=== PATIENT | male | born 1965 | race Caucasian/White ===

== ENCOUNTER 2020-12-13 21:31 | Inpatient (IN) | payer MEDICAID, SELFPAY ==
--- NOTE | ~2020-12-13 | XR_ITS ---
EXAMINATION: XR CHEST CLINICAL INFORMATION: Dyspnea COMPARISON: None TECHNIQUE: Frontal view of the chest was obtained. FINDINGS: The heart and pulmonary vessels appear normal. Ill-defined scattered patchy densities are seen throughout both lungs. Findings are worrisome for viral pneumonia. A 1 cm nodular density present in the right inferior hilar region. No effusions are seen. XR/XR chest 1V IMPRESSION: Commonly reported imaging features of Covid 19 or viral pneumonia are present with multifocal ill-defined probable groundglass infiltrates. Other processes such as influenza pneumonia or organizing pneumonia, as can be seen with drug toxicity and connective tissue disease, can cause a similar imaging pattern. Also present is a possible 1 cm lung nodule on the right described above. Follow-up is recommended after treatment.
--- NOTE | ~2020-12-13 | XR_ITS ---
EXAMINATION: XR CHEST CLINICAL INFORMATION: Pneumonia with hypoxia COMPARISON: CT scan performed very early this morning at 12:37 AM chest radiograph 12/13/2020 TECHNIQUE: Frontal view of the chest was obtained. FINDINGS: Compared to the prior chest radiograph, there has been no significant interval change. Again noted are multifocal opacities seen in the lungs which were better characterized on the CT scan performed earlier today. Heart size is normal. No effusions are present. XR/XR chest 1V IMPRESSION: Unchanged chest radiograph. Findings were better characterized on the CT scan earlier today which demonstrated multifocal groundglass infiltrates multiple masslike areas. Recommendations remain the same with follow-up CT scan after treatment to sure that these rounded masses are inflammatory and not malignant.
--- NOTE | ~2020-12-13 | CT_ITS ---
EXAMINATION: CT ANGIOGRAM OF THE CHEST WITH AND WITHOUT CONTRAST (CT PULMONARY ANGIOGRAM FOR PE) CLINICAL INFORMATION: Reason for Exam Hypoxia COMPARISON: None TECHNIQUE: Prior to contrast administration, noncontrast localization images were obtained. Subsequently, multidetector volumetric imaging was performed from the thoracic inlet to below the diaphragms following the administration of 65 mL Omnipaque 350 intravenous contrast. No contrast reaction reported Sagittal, coronal, and MIP oblique sagittal reformatted images were obtained on the CT workstation, uploaded to PACS, and reviewed. This CT examination was performed using dose optimization techniques as appropriate, variously including the following: *Automated exposure control *Adjustment of mA and/or kV according to patient size (this includes techniques or standardized protocols for targeted exams where dose is matched to indication/reason for exam; i.e. extremities or head) *Use of iterative reconstruction technique Total exam dose-length product 245 mGy-cm FINDINGS: QUALITY OF STUDY/CONTRAST BOLUS: Satisfactory. PULMONARY ARTERIES: No central or segmental pulmonary emboli. THORACIC AORTA: No aneurysm or dissection. LUNG: There are scattered peripheral groundglass infiltrates present fairly characteristic of Covid 19. Multiple masslike areas are also seen in the lungs the largest of which is in the left lower lobe measuring 4.5 x 3.0 x 4.2 cm (8:469). Others include right upper lobe 0.9 cm (8:166) and right lower lobe measuring 1.6 x 1.0 x 1.6 cm (8:414). Other smaller areas are present as well. PLEURA: No pleural effusion or pneumothorax. MEDIASTINUM: The heart is normal size. There are enlarged mediastinal nodes present with one in the anterior mediastinum measuring 1.5 x 1.1 x 1.7 cm (8:155). Pretracheal AP window and precarinal and subcarinal lymph nodes are present as well with the largest being a subcarinal node measuring 2.1 x 1.7 x 2.8 cm (8:291). Bilateral hilar nodes are present with the largest on the left measuring 2.2 x 1.3 x 2.5 cm (8:318 and the largest on the right measuring 2.0 x 1.7 x 1.6 cm (8:294) No evidence of septal bowing or right heart strain. CHEST WALL/AXILLA: No axillary or internal mammary lymphadenopathy. OSSEOUS STRUCTURES: No acute or suspicious osseous abnormality. UPPER ABDOMEN: There is a mass in the left adrenal gland measuring 1.5 x 1.2 x 2.0 cm. This measures 48 Hounsfield units and is indeterminate. No liver metastases are seen. No reflux of contrast into the hepatic veins to suggest elevated right heart pressures. CT/CT angio chest PE protocol IMPRESSION: 1. Multifocal groundglass infiltrates are seen suggestive of Covid 19 2. Multiple lung masses/masslike infiltrates are present. Malignancy needs to be considered and a repeat exam performed after antibiotic treatment, if infection is suspected. 3. Mediastinal and hilar nodes as described above. 4. Indeterminate left adrenal mass. VTE: negative
[2020-12-13 21:38] VITALS: BP 138/76; BP 143/82; PULSE 120; RESP 26; TEMP 37.6; O2SAT 88; O2SAT 93; BMI 23.0
--- NOTE | 2020-12-13 21:54 | ECG_ITS ---
Test Reason : SOB Blood Pressure : / mmHG Vent. Rate : 117 BPM Atrial Rate : 117 BPM P-R Int : 126 ms QRS Dur : 094 ms QT Int : 316 ms P-R-T Axes : 078 106 056 degrees QTc Int : 440 ms Sinus tachycardia Biatrial enlargement Rightward axis Pulmonary disease pattern Abnormal ECG No previous ECGs available Referred By: Dahiana Bailey Electronically Signed By:BOB BRANNON MD
[2020-12-13 22:13] LABS: Imm Gran Abs Auto 0.11 X10*3/uL (0.00-0.03); Imm Gran Pct Auto 0.5 % (0.0-0.4); Mean Corpuscular Hemoglobin 28.1 pg (27.0-33.0); Mean Platelet Volume 9.1 fL (9.4-12.4); SCAN SMEAR FLAG 1; WBC ABN SCTR 1
--- NOTE | 2020-12-13 22:17 | ED.SOB ---
HPI - SOB/Dyspnea General Chief Complaint: Dyspnea Stated Complaint: sob Time Seen by Provider: 12/13/20 21:50 Source: patient Mode of arrival: EMS History of Present Illness HPI Narrative: 55-year-old male who arrives via EMS from home with complaints of difficulty breathing for 2-3 days. Patient states that he was evaluated at [facility] yesterday morning but left before the COVID results, but states he received prednisone while at the hospital. Patient then goes on to endorse that he missed his dose of methadone yesterday and took the dose today but then additionally did 2 bags of heroin prior to arrival. Otherwise, patient denies fevers but states he has had chills and has had a couple of episodes of vomiting without abdominal pain/diarrhea and denies any urinary symptoms. Related Data Home Medications Medication Instructions Recorded Confirmed albuterol sulfate 2 puff PO QID 12/14/20 albuterol sulfate [ProAir HFA] 2 puff PO QID 12/14/20 azithromycin 1 tab PO DAILY 12/14/20 clonidine HCl 1 tab PO TID PRN 12/14/20 fluticasone propion-salmeterol 1 puff INHALATION BID 12/14/20 [Wixela Inhub] fluticasone propionate 2 spray INTRANASAL DAILY 12/14/20 fluticasone propionate [Flovent 2 puff PO BID 12/14/20 HFA] ipratropium-albuterol [Combivent 1 puff INHALATION QID PRN 12/14/20 Respimat] prednisone 1 tab PO DAILY 12/14/20 prednisone 2 tab PO DAILY 12/14/20 umeclidinium [Incruse Ellipta] 1 puff INHALATION DAILY 12/14/20 Allergies Allergy/AdvReac Type Severity Reaction Status Date / Time No Known Allergies Allergy Verified 12/13/20 21:50 Review of Systems Review of Systems: Pertinent positives and negatives as stated in HPI 10 point review of systems is otherwise negative. [facility] Past Medical History Source: nursing notes reviewed Medical History COPD (chronic obstructive pulmonary disease) Social History Social History Alcohol intake: never Smoking Status: Light tobacco smoker Tobacco Type: Cigar Smoked in Last 30 Days: Yes Use of substances other than those prescribed or required for medical reasons: Yes Substance Use Type: Heroin Substance Use Frequency: Occasionally Last Used Substance: Hours (ago) Advance Directives: No Physical Exam Vital Signs: Vital Signs: Last Vital Signs Temp 99.7 F 12/13/20 21:38 Pulse 109 H 12/14/20 01:16 Resp 25 H 12/14/20 01:16 BP 130/70 12/14/20 01:16 Pulse Ox 91 L 12/14/20 01:16 Oxygen Flow Rate 4 12/13/20 21:38 Body Mass Index 23.0 VITAL SIGNS: Reviewed. GENERAL: Well developed, well nourished, in no acute distress. HEAD: Normocephalic/atraumatic EYES: PERRLA, EOMI OROPHARYNX: no oral lesions noted, posterior pharynx clear, dry mucosa NECK: Supple, no adenopathy LUNGS: Decreased breath sounds on left when compared to right, no wheezing, no accessory muscle use, tachypnea+. SpO2<94 on 2 L > CARDIOVASCULAR: Regular rate and rhythm without noted murmurs, no JVD or lower extremity edema. ABDOMEN: Soft, non-tender, non-distended with bowel sounds. MUSCULOSKELETAL: No tenderness, deformities, or effusions noted on gross inspection. EXTREMITIES: No cyanosis, clubbing or edema. SKIN: Inspection of the skin reveals no rashes, ulcerations, jaundice, pallor, or petechiae. NEUROLOGIC: Alert and oriented x 4. Strength and sensation to light touch were grossly intact x 4. Course Course Course Narrative: 55-year-old male with history and clinical presentation suggestive of COPD exacerbation, pneumonia, COVID-19 infection. On review of all investigations the leukocytosis is likely secondary to steroids patient received at [facility], however empiric antibiotics will be provided. Otherwise, BNP is within normal limits and patient continues to require oxygen supplementation. I discussed this case with the inpatient hospitalist team because the presentation as well as chest x-ray findings are highly suspicious for COVID-19 infection despite the fact that the swabs are coming back negative. VBG is inconsistent with COPD exacerbation. Inpatient hospital team agreeable for admission but ordered CTA of the chest for PE which was negative but again demonstrates radiologic findings consistent with COVID-19 infection. Patient will be admitted to isolation for this diagnosis. MDM - SOB/Dyspnea Lab Data Result diagrams: 12/13/20 22:01 12/13/20 22:02 Labs: Lab Results 12/13/20 12/13/20 12/13/20 Range/Units 22:01 22:01 22:01 WBC 22.8 H (4.8-10.8) X10*3/uL RBC 5.48 (4.60-5.80) X10*6/uL Hgb 15.4 (14.0-18.0) g/dl Hct 46.6 (42-52) % MCV 85.0 (80-98) fL MCH 28.1 (27.0-33.0) pg MCHC 33.0 (31.0-36.0) g/dl RDW 13.8 (11.0-16.0) % Plt Count 313 (160-400) X10*3/uL MPV 9.1 L (9.4-12.4) fL Immature Gran % (Auto) 0.5 H (0.0-0.4) % Neut % (Auto) 83.1 H (45-73) % Lymph % (Auto) 7.2 L (20-40) % [place] % (Auto) 8.8 (2-11) % Eos % (Auto) 0.1 (0-4) % Baso % (Auto) 0.3 (0-2) % Lymph # (Auto) 1.6 (1.2-4.9) X10*3/uL [place] # (Auto) 2.0 H (0.1-1.2) X10*3/uL Eos # (Auto) 0.0 (0.0-0.4) X10*3/uL Baso # (Auto) 0.1 (0.0-0.2) X10*3/uL Abs Immat Gran (auto) 0.11 H (0.00-0.03) X10*3/uL Absolute Neuts (auto) 19.0 H (2.0-8.3) X10*3/uL Absolute Nucleated RBC 0.000 (0.0-0.012) X10*3/uL Nucleated RBC % (auto) 0.0 (0.0-0.2) /100WBC Smear Tech's Comments VERIFIED PT 15.2 H (10.8-13.0) SEC INR 1.3 H (0.9-1.1) VBG pH (7.32-7.43) VBG pCO2 mmHg VBG pO2 mmHg VBG HCO3 (22-26) mmol/L VBG O2 Saturation % VBG Base Excess mmol/L Sodium (135-145) mmol/L Potassium (3.3-5.1) mmol/L Chloride (96-108) mmol/L Carbon Dioxide (22-29) mmol/L Anion Gap (12-20) BUN (9-16) mg/dL Creatinine (0.5-1.4) mg/dL Estim Creat Clear Calc Estimated GFR Random Glucose (60-115) mg/dL Lactic Acid 1.0 (0.5-2.0) mmol/L Calcium (8.4-10.2) mg/dL Total Bilirubin (0.0-1.0) mg/dL AST (5-37) U/L ALT (0-40) U/L Alkaline Phosphatase (39-117) U/L Lactate Dehydrogenase (118-273) U/L Troponin I High Sens (<3.5-35.0) ng/L C-Reactive Protein (< or = 0.50) mg/dL B-Natriuretic Peptide (<100) pg/mL Total Protein (6.5-8.0) g/dL Albumin (3.5-5.0) g/dL Procalcitonin ng/mL Ethyl Alcohol mg/dL Coronavirus (PCR) (Negative) COVID-19 (RADHA) (Negative) COVID-19 Clin Com Influenza Type A (PCR) (Negative) Influenza Type B (PCR) (Negative) RSV RNA Qual (PCR) (Negative) 12/13/20 12/13/20 12/13/20 Range/Units 22:01 22:01 22:02 WBC (4.8-10.8) X10*3/uL RBC (4.60-5.80) X10*6/uL Hgb (14.0-18.0) g/dl Hct (42-52) % MCV (80-98) fL MCH (27.0-33.0) pg MCHC (31.0-36.0) g/dl RDW (11.0-16.0) % Plt Count (160-400) X10*3/uL MPV (9.4-12.4) fL Immature Gran % (Auto) (0.0-0.4) % Neut % (Auto) (45-73) % Lymph % (Auto) (20-40) % [place] % (Auto) (2-11) % Eos % (Auto) (0-4) % Baso % (Auto) (0-2) % Lymph # (Auto) (1.2-4.9) X10*3/uL [place] # (Auto) (0.1-1.2) X10*3/uL Eos # (Auto) (0.0-0.4) X10*3/uL Baso # (Auto) (0.0-0.2) X10*3/uL Abs Immat Gran (auto) (0.00-0.03) X10*3/uL Absolute Neuts (auto) (2.0-8.3) X10*3/uL Absolute Nucleated RBC (0.0-0.012) X10*3/uL Nucleated RBC % (auto) (0.0-0.2) /100WBC Smear Tech's Comments PT (10.8-13.0) SEC INR (0.9-1.1) VBG pH (7.32-7.43) VBG pCO2 mmHg VBG pO2 mmHg VBG HCO3 (22-26) mmol/L VBG O2 Saturation % VBG Base Excess mmol/L Sodium 135 (135-145) mmol/L Potassium 4.6 (3.3-5.1) mmol/L Chloride 95 L (96-108) mmol/L Carbon Dioxide 27 (22-29) mmol/L Anion Gap 18 (12-20) BUN 23 H (9-16) mg/dL Creatinine 1.12 (0.5-1.4) mg/dL Estim Creat Clear Calc 77.0 Estimated GFR > 60 Random Glucose 105 (60-115) mg/dL Lactic Acid (0.5-2.0) mmol/L Calcium 10.0 (8.4-10.2) mg/dL Total Bilirubin 0.9 (0.0-1.0) mg/dL AST 30 (5-37) U/L ALT 13 (0-40) U/L Alkaline Phosphatase 118 H (39-117) U/L Lactate Dehydrogenase 323 H (118-273) U/L Troponin I High Sens 7.2 (<3.5-35.0) ng/L C-Reactive Protein 13.46 H (< or = 0.50) mg/dL B-Natriuretic Peptide 18 (<100) pg/mL Total Protein 7.8 (6.5-8.0) g/dL Albumin 4.5 (3.5-5.0) g/dL Procalcitonin 0.18 ng/mL Ethyl Alcohol mg/dL Coronavirus (PCR) (Negative) COVID-19 (RADHA) (Negative) COVID-19 Clin Com Influenza Type A (PCR) (Negative) Influenza Type B (PCR) (Negative) RSV RNA Qual (PCR) (Negative) 12/13/20 12/13/20 12/13/20 Range/Units 22:05 22:16 22:23 WBC (4.8-10.8) X10*3/uL RBC (4.60-5.80) X10*6/uL Hgb (14.0-18.0) g/dl Hct (42-52) % MCV (80-98) fL MCH (27.0-33.0) pg MCHC (31.0-36.0) g/dl RDW (11.0-16.0) % Plt Count (160-400) X10*3/uL MPV (9.4-12.4) fL Immature Gran % (Auto) (0.0-0.4) % Neut % (Auto) (45-73) % Lymph % (Auto) (20-40) % [place] % (Auto) (2-11) % Eos % (Auto) (0-4) % Baso % (Auto) (0-2) % Lymph # (Auto) (1.2-4.9) X10*3/uL [place] # (Auto) (0.1-1.2) X10*3/uL Eos # (Auto) (0.0-0.4) X10*3/uL Baso # (Auto) (0.0-0.2) X10*3/uL Abs Immat Gran (auto) (0.00-0.03) X10*3/uL Absolute Neuts (auto) (2.0-8.3) X10*3/uL Absolute Nucleated RBC (0.0-0.012) X10*3/uL Nucleated RBC % (auto) (0.0-0.2) /100WBC Smear Tech's Comments PT (10.8-13.0) SEC INR (0.9-1.1) VBG pH 7.36 (7.32-7.43) VBG pCO2 49 mmHg VBG pO2 57 mmHg VBG HCO3 28 H (22-26) mmol/L VBG O2 Saturation 84.0 % VBG Base Excess 1.7 mmol/L Sodium (135-145) mmol/L Potassium (3.3-5.1) mmol/L Chloride (96-108) mmol/L Carbon Dioxide (22-29) mmol/L Anion Gap (12-20) BUN (9-16) mg/dL Creatinine (0.5-1.4) mg/dL Estim Creat Clear Calc Estimated GFR Random Glucose (60-115) mg/dL Lactic Acid (0.5-2.0) mmol/L Calcium (8.4-10.2) mg/dL Total Bilirubin (0.0-1.0) mg/dL AST (5-37) U/L ALT (0-40) U/L Alkaline Phosphatase (39-117) U/L Lactate Dehydrogenase (118-273) U/L Troponin I High Sens (<3.5-35.0) ng/L C-Reactive Protein (< or = 0.50) mg/dL B-Natriuretic Peptide (<100) pg/mL Total Protein (6.5-8.0) g/dL Albumin (3.5-5.0) g/dL Procalcitonin ng/mL Ethyl Alcohol < 10 mg/dL Coronavirus (PCR) (Negative) COVID-19 (RADHA) Negative (Negative) COVID-19 Clin Com See Note Influenza Type A (PCR) (Negative) Influenza Type B (PCR) (Negative) RSV RNA Qual (PCR) (Negative) 12/13/20 Range/Units 23:35 WBC (4.8-10.8) X10*3/uL RBC (4.60-5.80) X10*6/uL Hgb (14.0-18.0) g/dl Hct (42-52) % MCV (80-98) fL MCH (27.0-33.0) pg MCHC (31.0-36.0) g/dl RDW (11.0-16.0) % Plt Count (160-400) X10*3/uL MPV (9.4-12.4) fL Immature Gran % (Auto) (0.0-0.4) % Neut % (Auto) (45-73) % Lymph % (Auto) (20-40) % [place] % (Auto) (2-11) % Eos % (Auto) (0-4) % Baso % (Auto) (0-2) % Lymph # (Auto) (1.2-4.9) X10*3/uL [place] # (Auto) (0.1-1.2) X10*3/uL Eos # (Auto) (0.0-0.4) X10*3/uL Baso # (Auto) (0.0-0.2) X10*3/uL Abs Immat Gran (auto) (0.00-0.03) X10*3/uL Absolute Neuts (auto) (2.0-8.3) X10*3/uL Absolute Nucleated RBC (0.0-0.012) X10*3/uL Nucleated RBC % (auto) (0.0-0.2) /100WBC Smear Tech's Comments PT (10.8-13.0) SEC INR (0.9-1.1) VBG pH (7.32-7.43) VBG pCO2 mmHg VBG pO2 mmHg VBG HCO3 (22-26) mmol/L VBG O2 Saturation % VBG Base Excess mmol/L Sodium (135-145) mmol/L Potassium (3.3-5.1) mmol/L Chloride (96-108) mmol/L Carbon Dioxide (22-29) mmol/L Anion Gap (12-20) BUN (9-16) mg/dL Creatinine (0.5-1.4) mg/dL Estim Creat Clear Calc Estimated GFR Random Glucose (60-115) mg/dL Lactic Acid (0.5-2.0) mmol/L Calcium (8.4-10.2) mg/dL Total Bilirubin (0.0-1.0) mg/dL AST (5-37) U/L ALT (0-40) U/L Alkaline Phosphatase (39-117) U/L Lactate Dehydrogenase (118-273) U/L Troponin I High Sens (<3.5-35.0) ng/L C-Reactive Protein (< or = 0.50) mg/dL B-Natriuretic Peptide (<100) pg/mL Total Protein (6.5-8.0) g/dL Albumin (3.5-5.0) g/dL Procalcitonin ng/mL Ethyl Alcohol mg/dL Coronavirus (PCR) NEGATIVE (Negative) COVID-19 (RADHA) (Negative) COVID-19 Clin Com Influenza Type A (PCR) NEGATIVE (Negative) Influenza Type B (PCR) NEGATIVE (Negative) RSV RNA Qual (PCR) NEGATIVE (Negative) ECG Data Attestation: I personally reviewed and interpreted this ECG as follows: Prior ECG tracings: not available for review Interpretation: Sinus tachycardia, HR -117, no evidence of acute ischemia, IN/QRS/QTC are within normal limits. Discharge Plan Discharge Clinical Impression: Acute hypoxemic respiratory failure, COPD (chronic obstructive pulmonary disease), COVID-19 determined by clinical diagnostic criteria Patient Disposition: Admitted As Inpatient
[2020-12-13 22:20] LABS: INTERNATIONAL NORM RATIO 1.3 (0.9-1.1); Prothrombin Time 15.2 SEC (10.8-13.0)
[2020-12-13 22:27] LABS: Basophils Absolute Auto 0.1 X10*3/uL (0.0-0.2); Basophils Percent Auto 0.3 % (0-2); Eosinophils Percent Auto 0.1 % (0-4); Hematocrit 46.6 % (42-52); Hemoglobin 15.4 g/dl (14.0-18.0); Lymphocytes Absolute Auto 1.6 X10*3/uL (1.2-4.9); Lymphocytes Percent Auto 7.2 % (20-40); Monocytes Percent Auto 8.8 % (2-11); Neutrophils Percent Auto 83.1 % (45-73); Platelet Count 313 X10*3/uL (160-400); Red Blood Count 5.48 X10*6/uL (4.60-5.80); Red Cell Distribution Width 13.8 % (11.0-16.0)
[2020-12-13 22:29] LABS: Venous Blood Gas Refer to POC result
[2020-12-13 22:30] LABS: VBG Base Excess 1.7 mmol/L; VBG HCO3 28 mmol/L (22-26); VBG pCO2 49 mmHg; VBG pH 7.36 (7.32-7.43); VBG pO2 57 mmHg
[2020-12-13 22:30] LABS: MANUAL DIFF FLAG SCAN; WBC ABN SCTR FOR CBC 1; White Blood Count 22.8 X10*3/uL (4.8-10.8)
[2020-12-13 22:32] LABS: SLIDE REVIEW VERIFIED
[2020-12-13 22:38] LABS: COVID-19 Test Negative (Negative)
[2020-12-13 22:43] LABS: Alanine Aminotransferase 13 U/L (0-40); Albumin Level 4.5 g/dL (3.5-5.0); Alkaline Phosphatase 118 U/L (39-117); Anion Gap 18 (12-20); Aspartate Amino Transferase 30 U/L (5-37); Bilirubin Total 0.9 mg/dL (0.0-1.0); Blood Urea Nitrogen 23 mg/dL (9-16); Carbon Dioxide 27 mmol/L (22-29); Chloride 95 mmol/L (96-108); Estimated Glomerular Filt Rate > 60; Glucose Random 105 mg/dL (60-115); Potassium 4.6 mmol/L (3.3-5.1); Sodium 135 mmol/L (135-145); Total Protein 7.8 g/dL (6.5-8.0)
[2020-12-13 22:49] LABS: Ethanol < 10 mg/dL
[2020-12-13 23:22] VITALS: BP 129/79; PULSE 112; RESP 22; O2SAT 90
[2020-12-13] MEDS: Piperacillin Sodium/Tazobactam 3.375 GM in 0.9 % Sodium Chloride 50 ML IV (23:32)
[2020-12-13 23:36] LABS: B Type Natriuretic Peptide 18 pg/mL (<100); Troponin-I High Sensitivity 7.2 ng/L (<3.5-35.0)
[2020-12-14] VITALS (15 sets, daily range): BP systolic 105–143; BP diastolic 68–81; PULSE 84–109; RESP 15–25; TEMP 36.4–36.9; O2SAT 90–100
[2020-12-14 00:22] LABS: C Reactive Protein 13.46 mg/dL (< or = 0.50)
[2020-12-14 00:22] LABS: Influenza A PCR NEGATIVE (Negative); Influenza B PCR NEGATIVE (Negative); Resp Syncy Virus RNA Qual PCR NEGATIVE (Negative); SARS COV2 PCR INHOUSE NEGATIVE (Negative)
[2020-12-14 00:25] LABS: Lactate Dehydrogenase 323 U/L (118-273)
[2020-12-14] MEDS: iohexoL 350 MG/ML 100 ML INFUS..BTL 65 ML IV (00:44)
[2020-12-14] MEDS: Enoxaparin Sodium 40 MG/0.4 ML SYRINGE SUBCUT (00:51)
[2020-12-14] MEDS: cefTRIAXone sodium 1 GM in 0.9 % Sodium Chloride 50 ML IV (00:51)
[2020-12-14] MEDS: methylPREDNISolone Sod Succ 40 MG/ML VIAL IVPUSH ×3 (00:51→16:02)
[2020-12-14] MEDS: Azithromycin 500 MG TABLET PO (00:51)
[2020-12-14 00:56] LABS: Procalcitonin 0.18 ng/mL
[2020-12-14] MEDS: Albuterol Sulfate 90 MCG 8 GM INHALER 4 PUFF INHALE ×2 (01:24→09:31)
[2020-12-14 01:37] LABS: Glucose Urine UA NEG (NEG); Leukocyte Esterase Urine NEG (NEG); Nitrite Urine NEG (NEG); PH 5.5 (5.0-8.0); Urine Blood 1+ (NEG); Urine Ketones 5 MG/DL (NEG); Urine Protein NEG (NEG-TRACE)
[2020-12-14 01:39] LABS: Appearance Urine CLEAR; Color Urine YELLOW
--- NOTE | 2020-12-14 01:42 | P.HPHOSP_ITS ---
History of Present Illness Date of Service: 12/14/20 Chief Complaint: Shortness of breath 55-year-old male with a past medical history of COPD, opiate dependence on methadone presented to the hospital with a chief complaint of shortness of breath. Patient mentions that over the past 3 days he has been having shortness of breath with has been gradually worsening, associated with cough with greenish sputum. Denies any fevers but noted chills. Yesterday he went to the ER at [facility] and was given prednisone after he took the prednisone last night he had an episode of vomiting and abdominal discomfort. Currently denies any nausea vomiting or abdominal pain. Denies any chest pain palpitations lightheadedness or dizziness. Denies any COVID exposures. Review of all other systems is negative except mentioned above ER course: For ER team patient was mildly hypoxic and was placed on supplemental oxygen. Breathing comfortably. Chest x-ray showed findings consistent with possible COVID pneumonia. Admitted to the hospital for further management. [facility] Medical History COPD (chronic obstructive pulmonary disease) Social History Household Members: Significant Other Housing: House Do you presently have visiting nurse or other home services: No Alcohol intake: never Smoking Status: Light tobacco smoker Tobacco Type: Cigarette Cigarettes Per Day: 2 Smoked in Last 30 Days: Yes Use of substances other than those prescribed or required for medical reasons: Yes Substance Use Type: Heroin Substance Use Frequency: Occasionally Last Used Substance: Just Prior to Admission Currently Displaying Signs/Symptoms of Drug Intoxication Withdrawal: No Any prior treatment program specific to substance use: Yes (methadone) Have you been hit, kicked, punched, or otherwise hurt by someone within the past year? If so, by whom?: No Do you feel safe in your current relationship?: Yes Is there a partner from a previous relationship who is making you feel unsafe now?: No Are you made to feel afraid or neglected: No Advance Directives: No Do you have thoughts of harming others: None Recently lost weight without trying: No Meds Allergies Allergy/AdvReac Type Severity Reaction Status Date / Time No Known Allergies Allergy Verified 12/13/20 21:50 Active Medications: Current Medications Generic Name Dose Route Start Last Admin Trade Name Freq PRN Reason Stop Dose Admin Acetaminophen 650 mg 12/14/20 00:11 Acetaminophen 325 Mg Tablet PO Q6H PRN Pain, Mild (Pain Scale 1-3) Azithromycin 500 mg 12/14/20 00:15 12/14/20 00:51 Azithromycin 500 Mg Tablet PO 500 mg Q24H JOHN Administration Clonidine HCl 0.2 mg 12/14/20 09:00 Clonidine Hcl 0.2 Mg Tablet PO TID [facility] Protocol Enoxaparin Sodium 40 mg 12/14/20 00:15 12/14/20 00:51 Enoxaparin Sodium 40 Mg/0.4 Ml Syringe SUBCUT 40 mg Q24H OJHN Administration Famotidine 20 mg 12/14/20 09:00 Famotidine 20 Mg Tablet PO DAILY [facility] Ceftriaxone Sodium 1 gm/ 50 mls @ 100 mls/hr 12/14/20 00:15 12/14/20 01:31 Sodium Chloride IV Infused Q24H [facility] Infusion Iohexol 65 ml 12/14/20 00:44 12/14/20 00:44 Iohexol 350 Mg/Ml 100 Ml Infus..Btl IV 12/14/20 00:45 65 ml ONCE ONE Administration Methylprednisolone Sodium Succinate 40 mg 12/14/20 00:15 12/14/20 00:51 Methylprednisolone Sod Succ 40 Mg/Ml Vial IVPUSH 40 mg Q8H [facility] Administration Sodium Chloride 3 ml 12/14/20 08:00 0.9 % Sodium Chloride Flush 3 Ml Syringe IVFLUSH QSHIFT [facility] Home Medications Medication Instructions Recorded Confirmed Last Taken Type albuterol sulfate 2 puff PO QID 12/14/20 12/14/20 12/14/20 00:55 History clonidine HCl 1 tab PO TID PRN 12/14/20 12/14/20 12/14/20 00:55 History fluticasone propion-salmeterol 1 puff INHALATION BID 12/14/20 12/14/20 12/14/20 00:55 History [Wixela Inhub] fluticasone propionate 2 spray INTRANASAL DAILY 12/14/20 12/14/20 12/14/20 00:55 History ipratropium-albuterol [Combivent 1 puff INHALATION QID PRN 12/14/20 12/14/20 12/14/20 00:55 History Respimat] umeclidinium [Incruse Ellipta] 1 puff INHALATION DAILY 12/14/20 12/14/20 Unknown History Physical Exam Vital Signs and Narrative: Vital Signs: Last Vital Signs Temp 99.7 F 12/13/20 21:38 Pulse 109 H 12/14/20 01:16 Resp 25 H 12/14/20 01:16 BP 130/70 12/14/20 01:16 Pulse Ox 91 L 12/14/20 01:16 Oxygen Flow Rate 4 12/13/20 21:38 Body Mass Index 23.0 Gen: Appears be in no acute distress. Breathing comfortably HEENT: NCAT, Moist mucosa. Pulmonary: Course breath sounds, fair air entry CVS: Normal S1-S2 Abdomen: BS+, Soft, Nontender Extremities: Warm well perfused Neuro: Alert and awake. Results Labs CBC and Chem 7: 12/14/20 07:35 12/14/20 07:35 Labs: Laboratory Results - last 24 hr 12/13/20 12/13/20 12/13/20 22:01 22:01 22:01 MCV 85.0 MCH 28.1 MCHC 33.0 RDW 13.8 Plt Count 313 MPV 9.1 L Immature Gran % (Auto) 0.5 H Neut % (Auto) 83.1 H Lymph % (Auto) 7.2 L Love % (Auto) 8.8 Eos % (Auto) 0.1 Baso % (Auto) 0.3 Lymph # (Auto) 1.6 Love # (Auto) 2.0 H Eos # (Auto) 0.0 Baso # (Auto) 0.1 Abs Immat Gran (auto) 0.11 H Absolute Neuts (auto) 19.0 H Absolute Nucleated RBC 0.000 Nucleated RBC % (auto) 0.0 Smear Tech's Comments VERIFIED PT 15.2 H INR 1.3 H VBG pH VBG pCO2 VBG pO2 VBG HCO3 VBG O2 Saturation VBG Base Excess Anion Gap Estim Creat Clear Calc Estimated GFR Random Glucose Lactic Acid 1.0 Calcium Total Bilirubin AST ALT Alkaline Phosphatase Lactate Dehydrogenase Troponin I High Sens C-Reactive Protein B-Natriuretic Peptide Total Protein Albumin Procalcitonin Urine Color Urine Appearance Urine pH Ur Specific [place] Urine Protein Urine Glucose (UA) Urine Ketones Urine Blood Urine Nitrite Ur Leukocyte Esterase Ethyl Alcohol Coronavirus (PCR) COVID-19 (RADHA) COVID-19 Clin Com Influenza Type A (PCR) Influenza Type B (PCR) RSV RNA Qual (PCR) 12/13/20 12/13/20 12/13/20 22:01 22:01 22:02 MCV MCH MCHC RDW Plt Count MPV Immature Gran % (Auto) Neut % (Auto) Lymph % (Auto) Love % (Auto) Eos % (Auto) Baso % (Auto) Lymph # (Auto) Love # (Auto) Eos # (Auto) Baso # (Auto) Abs Immat Gran (auto) Absolute Neuts (auto) Absolute Nucleated RBC Nucleated RBC % (auto) Smear Tech's Comments PT INR VBG pH VBG pCO2 VBG pO2 VBG HCO3 VBG O2 Saturation VBG Base Excess Anion Gap 18 Estim Creat Clear Calc 77.0 Estimated GFR > 60 Random Glucose 105 Lactic Acid Calcium 10.0 Total Bilirubin 0.9 AST 30 ALT 13 Alkaline Phosphatase 118 H Lactate Dehydrogenase 323 H Troponin I High Sens 7.2 C-Reactive Protein 13.46 H B-Natriuretic Peptide 18 Total Protein 7.8 Albumin 4.5 Procalcitonin 0.18 Urine Color Urine Appearance Urine pH Ur Specific [place] Urine Protein Urine Glucose (UA) Urine Ketones Urine Blood Urine Nitrite Ur Leukocyte Esterase Ethyl Alcohol Coronavirus (PCR) COVID-19 (RADHA) COVID-19 Clin Com Influenza Type A (PCR) Influenza Type B (PCR) RSV RNA Qual (PCR) 12/13/20 12/13/20 12/13/20 22:05 22:16 22:23 MCV MCH MCHC RDW Plt Count MPV Immature Gran % (Auto) Neut % (Auto) Lymph % (Auto) Love % (Auto) Eos % (Auto) Baso % (Auto) Lymph # (Auto) Love # (Auto) Eos # (Auto) Baso # (Auto) Abs Immat Gran (auto) Absolute Neuts (auto) Absolute Nucleated RBC Nucleated RBC % (auto) Smear Tech's Comments PT INR VBG pH 7.36 VBG pCO2 49 VBG pO2 57 VBG HCO3 28 H VBG O2 Saturation 84.0 VBG Base Excess 1.7 Anion Gap Estim Creat Clear Calc Estimated GFR Random Glucose Lactic Acid Calcium Total Bilirubin AST ALT Alkaline Phosphatase Lactate Dehydrogenase Troponin I High Sens C-Reactive Protein B-Natriuretic Peptide Total Protein Albumin Procalcitonin Urine Color Urine Appearance Urine pH Ur Specific [place] Urine Protein Urine Glucose (UA) Urine Ketones Urine Blood Urine Nitrite Ur Leukocyte Esterase Ethyl Alcohol < 10 Coronavirus (PCR) COVID-19 (RADHA) Negative COVID-19 Clin Com See Note Influenza Type A (PCR) Influenza Type B (PCR) RSV RNA Qual (PCR) 12/13/20 12/14/20 23:35 01:20 MCV MCH MCHC RDW Plt Count MPV Immature Gran % (Auto) Neut % (Auto) Lymph % (Auto) Love % (Auto) Eos % (Auto) Baso % (Auto) Lymph # (Auto) Love # (Auto) Eos # (Auto) Baso # (Auto) Abs Immat Gran (auto) Absolute Neuts (auto) Absolute Nucleated RBC Nucleated RBC % (auto) Smear Tech's Comments PT INR VBG pH VBG pCO2 VBG pO2 VBG HCO3 VBG O2 Saturation VBG Base Excess Anion Gap Estim Creat Clear Calc Estimated GFR Random Glucose Lactic Acid Calcium Total Bilirubin AST ALT Alkaline Phosphatase Lactate Dehydrogenase Troponin I High Sens C-Reactive Protein B-Natriuretic Peptide Total Protein Albumin Procalcitonin Urine Color YELLOW Urine Appearance CLEAR Urine pH 5.5 Ur Specific [place] 1.020 Urine Protein NEG Urine Glucose (UA) NEG Urine Ketones 5 Urine Blood 1+ H Urine Nitrite NEG Ur Leukocyte Esterase NEG Ethyl Alcohol Coronavirus (PCR) NEGATIVE COVID-19 (RADHA) COVID-19 Clin Com Influenza Type A (PCR) NEGATIVE Influenza Type B (PCR) NEGATIVE RSV RNA Qual (PCR) NEGATIVE Imaging Radiologist's Impressions: Impressions Chest X-Ray 12/13/20 21:54 IMPRESSION: Commonly reported imaging features of Covid 19 or viral pneumonia are present with multifocal ill-defined probable groundglass infiltrates. Other processes such as influenza pneumonia or organizing pneumonia, as can be seen with drug toxicity and connective tissue disease, can cause a similar imaging pattern. Also present is a possible 1 cm lung nodule on the right described above. Follow-up is recommended after treatment. Chest CTA 12/14/20 00:45 IMPRESSION: 1. Multifocal groundglass infiltrates are seen suggestive of Covid 19 2. Multiple lung masses/masslike infiltrates are present. Malignancy needs to be considered and a repeat exam performed after antibiotic treatment, if infection is suspected. 3. Mediastinal and hilar nodes as described above. 4. Indeterminate left adrenal mass. VTE: negative Assessment and Plan (1) Acute hypoxemic respiratory failure: Status: Acute 55-year-old male with a past medical history of COPD, opiate dependence presented to the hospital with a chief complaint of shortness of breath/cough with greenish sputum. Admitted for further management. Pneumonia: CT scan showed multifocal ground-glass infiltrates suggestive of COVID-19. But rapid COVID-19 negative. Multiple lung masses/masslike infiltrates-malignancy in consideration. Will consult Oncology Will keep the patient on ceftriaxone, azithromycin, Flagyl. ID/Pulmonology consult for further recommendations. Mild COPD exacerbation: Continue the patient on Solu-Medrol 40 mg IV b.i.d.. Albuterol inhaler. Supplemental oxygen with goal saturation 93% Opiate dependence: Patient mentioned that he is on methadone and feels it in [facility]. Will defer to the a.m. team to confirm methadone to resume accordingly. Patient reports he missed a dose 3 days ago; to the yesterday's dose. Also mentioned that he has noted heroin yesterday Gastritis: Will keep the patient on Pepcid b.i.d. Continue home clonidine DVT prophylaxis: Subcu heparin Code status: Full code he
[2020-12-14 01:43] LABS: RBC Urine 0-2 /HPF (0); Squamous Epithelial Cell Urine TRACE /LPF; Uric Acid Crystals Urine 3+ /LPF; WBC Urine 0-2 /HPF (0-4)
[2020-12-14 01:54] LABS: Amphetamine Screen Urine Not Detected (Not Detect); Barbiturates, Urine Not Detected (Not Detect); Benzodiazepines Screen Urine Not Detected (Not Detect); Cannabinoid Screen Urine Not Detected (Not Detect); Cocaine Screen Urine POSITIVE (Not Detect); Opiate Screen Urine POSITIVE (Not Detect); Phencyclidine Screen Urine Not Detected (Not Detect)
[2020-12-14] MEDS: metroNIDAZOLE/NS 500 MG/100 ML PIGGYBACK 100 MG IV ×2 (02:23→10:29)
[2020-12-14 07:53] LABS: Basophils Absolute Auto 0.1 X10*3/uL (0.0-0.2); Basophils Percent Auto 0.3 % (0-2); Eosinophils Percent Auto 0.2 % (0-4); Hematocrit 44.9 % (42-52); Hemoglobin 14.6 g/dl (14.0-18.0); Imm Gran Abs Auto 0.23 X10*3/uL (0.00-0.03); Lymphocytes Absolute Auto 1.2 X10*3/uL (1.2-4.9); Lymphocytes Percent Auto 5.1 % (20-40); MANUAL DIFF FLAG SCAN; Mean Corpuscular Hemoglobin 27.8 pg (27.0-33.0); Mean Corpuscular Volume 85.4 fL (80-98); Mean Platelet Volume 9.2 fL (9.4-12.4); Monocytes Absolute Auto 0.7 X10*3/uL (0.1-1.2); Monocytes Percent Auto 2.8 % (2-11); Neutrophils Absolute Auto 20.7 X10*3/uL (2.0-8.3); Neutrophils Percent Auto 90.6 % (45-73); Platelet Count 296 X10*3/uL (160-400); Red Blood Count 5.26 X10*6/uL (4.60-5.80); SCAN SMEAR FLAG 1; White Blood Count 22.9 X10*3/uL (4.8-10.8)
[2020-12-14 07:56] LABS: Mean Corpuscular HGB Conc 32.5 g/dl (31.0-36.0)
[2020-12-14 08:20] LABS: Anion Gap 19 (12-20); Blood Urea Nitrogen 21 mg/dL (9-16); Calcium 9.3 mg/dL (8.4-10.2); Carbon Dioxide 24 mmol/L (22-29); Chloride 96 mmol/L (96-108); Creatinine Clr Calc Pharmacy 83.7; Estimated Glomerular Filt Rate > 60; Glucose Random 120 mg/dL (60-115); Potassium 4.6 mmol/L (3.3-5.1); Sodium 134 mmol/L (135-145)
[2020-12-14 08:30] LABS: SLIDE REVIEW VERIFIED
[2020-12-14] MEDS: Famotidine 20 MG TABLET PO ×2 (08:34→20:33)
[2020-12-14] MEDS: cloNIDine HCL 0.2 MG TABLET PO ×3 (08:34→20:33)
[2020-12-14] MEDS: 0.9 % Sodium Chloride Flush 3 ML SYRINGE IVFLUSH (08:35)
--- NOTE | 2020-12-14 08:42 | PC.NURSE ---
hospitalist contacted for neb for pt. pt denies sob or trouble breathing pt placed on 4l nc for o2 sat of 90% on 2l
[2020-12-14 09:32] LABS: Ferritin 179 ng/mL (20-250)
[2020-12-14 10:37] LABS: Adenovirus PCR Not Detected (Not Detect.); Bordetella parapertussis PCR Not Detected (Not Detect.); Bordetella pertussis PCR Not Detected (Not Detect.); Chlamydia pneumoniae PCR Not Detected (Not Detect.); Coronavirus 229E PCR Not Detected (Not Detect.); Coronavirus HKU1 PCR Not Detected (Not Detect.); Coronavirus NL63 PCR Not Detected (Not Detect.); Coronavirus OC43 PCR Not Detected (Not Detect.); Human metapneumovirus PCR Not Detected (Not Detect.); Influenza A PCR Not Detected (Not Detect.); Influenza B PCR Not Detected (Not Detect.); Mycoplasma pneumoniae PCR Not Detected (Not Detect.); Parainfluenza 1 PCR Not Detected (Not Detect.); Parainfluenza 2 PCR Not Detected (Not Detect.); Parainfluenza 3 PCR Not Detected (Not Detect.); Parainfluenza 4 PCR Not Detected (Not Detect.); RSV PCR Not Detected (Not Detect.); SARS-CoV-2 PCR Not Detected (Not Detect.)
[2020-12-14 11:36] LABS: Rhino/Enterovirus PCR Detected (Not Detect.)
--- NOTE | 2020-12-14 12:01 | PC.NURSE ---
multiple attempts made to contact methadone clinic, no answer
--- NOTE | 2020-12-14 12:44 | PC.NURSE ---
eliazar moreno also attempting to contact methadone, no answers
--- NOTE | 2020-12-14 14:43 | W.PM.IDCN ---
History of Present Illness Data of Consult Service Date: 12/14/20 Requesting physician: Torsten Resendiz Primary Care Provider: Unknown Physician HPI Reason for consult: shortness of breath He presents to hospital with shortness of breath,worse last two days He says he has no oxygen requirement He has been using heroin He has productive sputum CT scan shows masses in lung probable Review of Systems Review of Systems: Yes all other systems are reviewed and are negative [facility] Past Medical History Medical History COPD (chronic obstructive pulmonary disease) Family History Family history: reviewed and not pertinent Social History Social History Alcohol intake: never Smoking Status: Light tobacco smoker Tobacco Type: Cigar Smoked in Last 30 Days: Yes Use of substances other than those prescribed or required for medical reasons: Yes Substance Use Type: Heroin Substance Use Frequency: Occasionally Last Used Substance: Hours (ago) Advance Directives: No Meds Allergies Allergy/AdvReac Type Severity Reaction Status Date / Time No Known Allergies Allergy Verified 12/13/20 21:50 Active Medications: Current Medications Generic Name Dose Route Start Last Admin Trade Name Freq PRN Reason Stop Dose Admin Acetaminophen 650 mg 12/14/20 00:11 Acetaminophen 325 Mg Tablet PO Q6H PRN Pain, Mild (Pain Scale 1-3) Albuterol Sulfate 4 puff 12/14/20 08:44 12/14/20 09:31 Albuterol Sulfate 90 Mcg 8 Gm Inhaler INHALE 4 puff Q3H PRN Administration Shortness of Breath/Wheezing Azithromycin 500 mg 12/14/20 00:15 12/14/20 00:51 Azithromycin 500 Mg Tablet PO 500 mg Q24H JOHN Administration Clonidine HCl 0.2 mg 12/14/20 09:00 12/14/20 08:34 Clonidine Hcl 0.2 Mg Tablet PO 0.2 mg TID JOHN Administration Protocol Enoxaparin Sodium 40 mg 12/14/20 00:15 12/14/20 00:51 Enoxaparin Sodium 40 Mg/0.4 Ml Syringe SUBCUT 40 mg Q24H JOHN Administration Famotidine 20 mg 12/14/20 09:00 12/14/20 08:34 Famotidine 20 Mg Tablet PO 20 mg BID JOHN Administration Ceftriaxone Sodium 1 gm/ 50 mls @ 100 mls/hr 12/14/20 00:15 12/14/20 01:31 Sodium Chloride IV Infused Q24H JOHN Infusion Metronidazole 500 mg in 100 mls @ 100 mls/hr 12/14/20 02:30 12/14/20 11:30 Flagyl IV Infused Q8H JOHN Infusion Methylprednisolone Sodium Succinate 40 mg 12/14/20 00:15 12/14/20 08:34 Methylprednisolone Sod Succ 40 Mg/Ml Vial IVPUSH 40 mg Q8H JOHN Administration Sodium Chloride 3 ml 12/14/20 08:00 12/14/20 08:35 0.9 % Sodium Chloride Flush 3 Ml Syringe IVFLUSH 3 ml QSHIFT JOHN Administration Home Medications Medication Instructions Recorded Confirmed Last Taken Type albuterol sulfate 2 puff PO QID 12/14/20 12/14/20 12/14/20 00:55 History clonidine HCl 1 tab PO TID PRN 12/14/20 12/14/20 12/14/20 00:55 History fluticasone propion-salmeterol 1 puff INHALATION BID 12/14/20 12/14/20 12/14/20 00:55 History [Wixela Inhub] fluticasone propionate 2 spray INTRANASAL DAILY 12/14/20 12/14/20 12/14/20 00:55 History ipratropium-albuterol [Combivent 1 puff INHALATION QID PRN 12/14/20 12/14/20 12/14/20 00:55 History Respimat] umeclidinium [Incruse Ellipta] 1 puff INHALATION DAILY 12/14/20 12/14/20 Unknown History Physical Exam Vital Signs: Vital Signs: Last Vital Signs Temp 98.5 F 12/14/20 08:33 Pulse 90 12/14/20 08:34 Resp 16 12/14/20 08:33 BP 126/74 12/14/20 08:34 Pulse Ox 93 12/14/20 08:49 Oxygen Flow Rate 4 12/13/20 21:38 Body Mass Index 23.0 Const: General: cooperative Orientation/consciousness: patient oriented x3 HENMT: Head: Yes normal to inspection Mouth: Normal oral and palatal mucosa present Resp: Effort & Inspection: normal respiratory effort Cardio: Rate: regular rate Rhythm: regular rhythm GI: Palpation (GI): Soft to palpation and nontender Skin: General skin exam: no rashes or lesions noted Neuro: General: patient oriented x3 Results Labs CBC & Chem 7: 12/14/20 07:35 12/14/20 07:35 Labs: Short CBC 12/13/20 12/14/20 Range/Units 22:01 07:35 WBC 22.8 H 22.9 H (4.8-10.8) X10*3/uL Hgb 15.4 14.6 (14.0-18.0) g/dl Hct 46.6 44.9 (42-52) % Plt Count 313 296 (160-400) X10*3/uL BMP 12/13/20 12/14/20 22:02 07:35 Sodium 135 134 L Potassium 4.6 4.6 Chloride 95 L 96 Carbon Dioxide 27 24 BUN 23 H 21 H Creatinine 1.12 1.03 Calcium 10.0 9.3 D Liver Function 12/13/20 Range/Units 22:02 Total Bilirubin 0.9 (0.0-1.0) mg/dL AST 30 (5-37) U/L ALT 13 (0-40) U/L Alkaline Phosphatase 118 H (39-117) U/L Albumin 4.5 (3.5-5.0) g/dL Urine 12/14/20 Range/Units 01:20 Urine Color YELLOW Urine Appearance CLEAR Urine pH 5.5 (5.0-8.0) Ur Specific [place] 1.020 (1.005-1.025) Urine Protein NEG (NEG-TRACE) MG/DL Urine Glucose (UA) NEG (NEG) MG/DL Assessment and Plan (1) Acute hypoxemic respiratory failure: Problem details: He has some shortness of breath and lung masses. Possibilities include fungal infection, malignancy,less likely eosinophilic pneumonia related to drug use Need to evaluate for HIV There doesnt seem to be any COVID,not necessary isolation at this time Status: Acute Would continue Ceftriaxone and Doxycycline Would check HIV Pulmonary involvement ?bronchoscopy (2) COPD (chronic obstructive pulmonary disease): Status: Acute
--- NOTE | 2020-12-14 16:36 | P.PNIM_ITS ---
Subjective Subjective Date of Service: 12/14/20 Interval History: still requiring 4L O2 via NC to maintain Sao2 above 89% c/o dyspnea, cough no chest pain no COVID exposure no prior COVID vaccination Physical Exam Vital Signs: Vital Signs: Last Vital Signs Temp 98.5 F 12/14/20 08:33 Pulse 90 12/14/20 16:02 Resp 16 12/14/20 16:02 BP 105/71 12/14/20 16:02 Pulse Ox 92 12/14/20 16:02 Oxygen Flow Rate 4 12/13/20 21:38 Body Mass Index 23.0 Gen: in no acute distress HEENT: sclera anicteric, moist mucus membranes Neck: supple Lungs: no respiratory distress, auscultation deferred due to COVID-19 Heart: normal peripheral pulses Abd: soft, non-tender, non-distended Ext: no cyanosis, clubbing, or edema Skin: warm/well-perfused Neuro: alert and oriented x3, no focal findings Psych: appropriate affect Objective Data Current Medications Generic Name Dose Route Start Last Admin Trade Name Freq PRN Reason Stop Dose Admin Acetaminophen 650 mg 12/14/20 00:11 Acetaminophen 325 Mg Tablet PO Q6H PRN Pain, Mild (Pain Scale 1-3) Albuterol Sulfate 4 puff 12/14/20 08:44 12/14/20 09:31 Albuterol Sulfate 90 Mcg 8 Gm Inhaler INHALE 4 puff Q3H PRN Administration Shortness of Breath/Wheezing Clonidine HCl 0.2 mg 12/14/20 09:00 12/14/20 16:02 Clonidine Hcl 0.2 Mg Tablet PO 0.2 mg TID JOHN Administration Protocol Enoxaparin Sodium 40 mg 12/14/20 00:15 12/14/20 00:51 Enoxaparin Sodium 40 Mg/0.4 Ml Syringe SUBCUT 40 mg Q24H JOHN Administration Famotidine 20 mg 12/14/20 09:00 12/14/20 08:34 Famotidine 20 Mg Tablet PO 20 mg BID JOHN Administration Ceftriaxone Sodium 1 gm/ 50 mls @ 100 mls/hr 12/14/20 00:15 12/14/20 01:31 Sodium Chloride IV Infused Q24H JOHN Infusion Doxycycline Hyclate 100 mg/ 250 mls @ 166.67 mls/hr 12/14/20 18:00 Sodium Chloride IV Q12H [facility] Methylprednisolone Sodium Succinate 40 mg 12/14/20 00:15 12/14/20 16:02 Methylprednisolone Sod Succ 40 Mg/Ml Vial IVPUSH 40 mg Q8H JOHN Administration Sodium Chloride 3 ml 12/14/20 08:00 12/14/20 08:35 0.9 % Sodium Chloride Flush 3 Ml Syringe IVFLUSH 3 ml QSHIFT JOHN Administration Labs CBC & Chem 7: 12/14/20 07:35 12/14/20 07:35 Labs: Laboratory Results - last 24 hr 12/13/20 12/13/20 12/13/20 22:01 22:01 22:01 WBC 22.8 H RBC 5.48 Hgb 15.4 Hct 46.6 MCV 85.0 MCH 28.1 MCHC 33.0 RDW 13.8 Plt Count 313 MPV 9.1 L Immature Gran % (Auto) 0.5 H Neut % (Auto) 83.1 H Lymph % (Auto) 7.2 L [place] % (Auto) 8.8 Eos % (Auto) 0.1 Baso % (Auto) 0.3 Lymph # (Auto) 1.6 [place] # (Auto) 2.0 H Eos # (Auto) 0.0 Baso # (Auto) 0.1 Abs Immat Gran (auto) 0.11 H Absolute Neuts (auto) 19.0 H Absolute Nucleated RBC 0.000 Nucleated RBC % (auto) 0.0 Smear Tech's Comments VERIFIED PT 15.2 H INR 1.3 H VBG pH VBG pCO2 VBG pO2 VBG HCO3 VBG O2 Saturation VBG Base Excess Sodium Potassium Chloride Carbon Dioxide Anion Gap BUN Creatinine Estim Creat Clear Calc Estimated GFR Random Glucose Lactic Acid 1.0 Calcium Ferritin Total Bilirubin AST ALT Alkaline Phosphatase Lactate Dehydrogenase Troponin I High Sens C-Reactive Protein B-Natriuretic Peptide Total Protein Albumin Procalcitonin Urine Color Urine Appearance Urine pH Ur Specific [place] Urine Protein Urine Glucose (UA) Urine Ketones Urine Blood Urine Nitrite Ur Leukocyte Esterase Urine RBC Urine WBC Ur Squamous Epith Cells Uric Acid Crystals Urine Bacteria Urine Opiates Screen Ur Barbiturates Screen Ur Phencyclidine Scrn Ur Amphetamines Screen U Benzodiazepines Scrn Urine Cocaine Screen U Marijuana (THC) Screen Ethyl Alcohol Respiratory Panel Tamez Adenovirus (Rapid PCR) B.pert (TEM-PCR) B.parapertussis DNA PCR C. pneumoniae DNA (PCR) Coronavirus (PCR) Coronavirus OC43 (PCR) Coronavirus HKU1 (PCR) Coronavirus 229E (PCR) COVID-19 (RADHA) COVID-19 Clin Com Coronavirus NL63 (PCR) Human Metapneumovir PCR Influenza A (RT-PCR) Influenza Type A (PCR) Influenza B (RT-PCR) Influenza Type B (PCR) M. pneumoniae (PCR) Parainfluenza 1 (PCR) Parainfluenza 2 (PCR) Parainfluenza 3 (PCR) Parainfluenza 4 (PCR) RSV (PCR) RSV RNA Qual (PCR) Entero/Rhino (PCR) SARS-CoV-2 RNA (RT-PCR) 12/13/20 12/13/20 12/13/20 22:01 22:01 22:02 WBC RBC Hgb Hct MCV MCH MCHC RDW Plt Count MPV Immature Gran % (Auto) Neut % (Auto) Lymph % (Auto) [place] % (Auto) Eos % (Auto) Baso % (Auto) Lymph # (Auto) [place] # (Auto) Eos # (Auto) Baso # (Auto) Abs Immat Gran (auto) Absolute Neuts (auto) Absolute Nucleated RBC Nucleated RBC % (auto) Smear Tech's Comments PT INR VBG pH VBG pCO2 VBG pO2 VBG HCO3 VBG O2 Saturation VBG Base Excess Sodium 135 Potassium 4.6 Chloride 95 L Carbon Dioxide 27 Anion Gap 18 BUN 23 H Creatinine 1.12 Estim Creat Clear Calc 77.0 Estimated GFR > 60 Random Glucose 105 Lactic Acid Calcium 10.0 Ferritin Total Bilirubin 0.9 AST 30 ALT 13 Alkaline Phosphatase 118 H Lactate Dehydrogenase 323 H Troponin I High Sens 7.2 C-Reactive Protein 13.46 H B-Natriuretic Peptide 18 Total Protein 7.8 Albumin 4.5 Procalcitonin 0.18 Urine Color Urine Appearance Urine pH Ur Specific [place] Urine Protein Urine Glucose (UA) Urine Ketones Urine Blood Urine Nitrite Ur Leukocyte Esterase Urine RBC Urine WBC Ur Squamous Epith Cells Uric Acid Crystals Urine Bacteria Urine Opiates Screen Ur Barbiturates Screen Ur Phencyclidine Scrn Ur Amphetamines Screen U Benzodiazepines Scrn Urine Cocaine Screen U Marijuana (THC) Screen Ethyl Alcohol Respiratory Panel Tamez Adenovirus (Rapid PCR) B.pert (TEM-PCR) B.parapertussis DNA PCR C. pneumoniae DNA (PCR) Coronavirus (PCR) Coronavirus OC43 (PCR) Coronavirus HKU1 (PCR) Coronavirus 229E (PCR) COVID-19 (RADHA) COVID-19 Clin Com Coronavirus NL63 (PCR) Human Metapneumovir PCR Influenza A (RT-PCR) Influenza Type A (PCR) Influenza B (RT-PCR) Influenza Type B (PCR) M. pneumoniae (PCR) Parainfluenza 1 (PCR) Parainfluenza 2 (PCR) Parainfluenza 3 (PCR) Parainfluenza 4 (PCR) RSV (PCR) RSV RNA Qual (PCR) Entero/Rhino (PCR) SARS-CoV-2 RNA (RT-PCR) 12/13/20 12/13/20 12/13/20 22:05 22:16 22:23 WBC RBC Hgb Hct MCV MCH MCHC RDW Plt Count MPV Immature Gran % (Auto) Neut % (Auto) Lymph % (Auto) [place] % (Auto) Eos % (Auto) Baso % (Auto) Lymph # (Auto) [place] # (Auto) Eos # (Auto) Baso # (Auto) Abs Immat Gran (auto) Absolute Neuts (auto) Absolute Nucleated RBC Nucleated RBC % (auto) Smear Tech's Comments PT INR VBG pH 7.36 VBG pCO2 49 VBG pO2 57 VBG HCO3 28 H VBG O2 Saturation 84.0 VBG Base Excess 1.7 Sodium Potassium Chloride Carbon Dioxide Anion Gap BUN Creatinine Estim Creat Clear Calc Estimated GFR Random Glucose Lactic Acid Calcium Ferritin Total Bilirubin AST ALT Alkaline Phosphatase Lactate Dehydrogenase Troponin I High Sens C-Reactive Protein B-Natriuretic Peptide Total Protein Albumin Procalcitonin Urine Color Urine Appearance Urine pH Ur Specific [place] Urine Protein Urine Glucose (UA) Urine Ketones Urine Blood Urine Nitrite Ur Leukocyte Esterase Urine RBC Urine WBC Ur Squamous Epith Cells Uric Acid Crystals Urine Bacteria Urine Opiates Screen Ur Barbiturates Screen Ur Phencyclidine Scrn Ur Amphetamines Screen U Benzodiazepines Scrn Urine Cocaine Screen U Marijuana (THC) Screen Ethyl Alcohol < 10 Respiratory Panel Tamez Adenovirus (Rapid PCR) B.pert (TEM-PCR) B.parapertussis DNA PCR C. pneumoniae DNA (PCR) Coronavirus (PCR) Coronavirus OC43 (PCR) Coronavirus HKU1 (PCR) Coronavirus 229E (PCR) COVID-19 (RADHA) Negative COVID-19 Clin Com See Note Coronavirus NL63 (PCR) Human Metapneumovir PCR Influenza A (RT-PCR) Influenza Type A (PCR) Influenza B (RT-PCR) Influenza Type B (PCR) M. pneumoniae (PCR) Parainfluenza 1 (PCR) Parainfluenza 2 (PCR) Parainfluenza 3 (PCR) Parainfluenza 4 (PCR) RSV (PCR) RSV RNA Qual (PCR) Entero/Rhino (PCR) SARS-CoV-2 RNA (RT-PCR) 12/13/20 12/14/20 12/14/20 23:35 01:20 01:20 WBC RBC Hgb Hct MCV MCH MCHC RDW Plt Count MPV Immature Gran % (Auto) Neut % (Auto) Lymph % (Auto) [place] % (Auto) Eos % (Auto) Baso % (Auto) Lymph # (Auto) [place] # (Auto) Eos # (Auto) Baso # (Auto) Abs Immat Gran (auto) Absolute Neuts (auto) Absolute Nucleated RBC Nucleated RBC % (auto) Smear Tech's Comments PT INR VBG pH VBG pCO2 VBG pO2 VBG HCO3 VBG O2 Saturation VBG Base Excess Sodium Potassium Chloride Carbon Dioxide Anion Gap BUN Creatinine Estim Creat Clear Calc Estimated GFR Random Glucose Lactic Acid Calcium Ferritin Total Bilirubin AST ALT Alkaline Phosphatase Lactate Dehydrogenase Troponin I High Sens C-Reactive Protein B-Natriuretic Peptide Total Protein Albumin Procalcitonin Urine Color YELLOW Urine Appearance CLEAR Urine pH 5.5 Ur Specific [place] 1.020 Urine Protein NEG Urine Glucose (UA) NEG Urine Ketones 5 Urine Blood 1+ H Urine Nitrite NEG Ur Leukocyte Esterase NEG Urine RBC 0-2 Urine WBC 0-2 Ur Squamous Epith Cells TRACE Uric Acid Crystals 3+ Urine Bacteria NONE Urine Opiates Screen POSITIVE H Ur Barbiturates Screen Not Detected Ur Phencyclidine Scrn Not Detected Ur Amphetamines Screen Not Detected U Benzodiazepines Scrn Not Detected Urine Cocaine Screen POSITIVE H U Marijuana (THC) Screen Not Detected Ethyl Alcohol Respiratory Panel Tamez Adenovirus (Rapid PCR) B.pert (TEM-PCR) B.parapertussis DNA PCR C. pneumoniae DNA (PCR) Coronavirus (PCR) NEGATIVE Coronavirus OC43 (PCR) Coronavirus HKU1 (PCR) Coronavirus 229E (PCR) COVID-19 (RADHA) COVID-19 Clin Com Coronavirus NL63 (PCR) Human Metapneumovir PCR Influenza A (RT-PCR) Influenza Type A (PCR) NEGATIVE Influenza B (RT-PCR) Influenza Type B (PCR) NEGATIVE M. pneumoniae (PCR) Parainfluenza 1 (PCR) Parainfluenza 2 (PCR) Parainfluenza 3 (PCR) Parainfluenza 4 (PCR) RSV (PCR) RSV RNA Qual (PCR) NEGATIVE Entero/Rhino (PCR) SARS-CoV-2 RNA (RT-PCR) 12/14/20 12/14/20 12/14/20 07:35 07:35 10:31 WBC 22.9 H RBC 5.26 Hgb 14.6 Hct 44.9 MCV 85.4 MCH 27.8 MCHC 32.5 RDW 14.0 Plt Count 296 MPV 9.2 L Immature Gran % (Auto) 1.0 H Neut % (Auto) 90.6 H Lymph % (Auto) 5.1 L [place] % (Auto) 2.8 Eos % (Auto) 0.2 Baso % (Auto) 0.3 Lymph # (Auto) 1.2 [place] # (Auto) 0.7 Eos # (Auto) 0.0 Baso # (Auto) 0.1 Abs Immat Gran (auto) 0.23 H Absolute Neuts (auto) 20.7 H Absolute Nucleated RBC 0.000 Nucleated RBC % (auto) 0.0 Smear Tech's Comments VERIFIED PT INR VBG pH VBG pCO2 VBG pO2 VBG HCO3 VBG O2 Saturation VBG Base Excess Sodium 134 L Potassium 4.6 Chloride 96 Carbon Dioxide 24 Anion Gap 19 BUN 21 H Creatinine 1.03 Estim Creat Clear Calc 83.7 Estimated GFR > 60 Random Glucose 120 H Lactic Acid Calcium 9.3 D Ferritin 179 Total Bilirubin AST ALT Alkaline Phosphatase Lactate Dehydrogenase Troponin I High Sens C-Reactive Protein B-Natriuretic Peptide Total Protein Albumin Procalcitonin Urine Color Urine Appearance Urine pH Ur Specific [place] Urine Protein Urine Glucose (UA) Urine Ketones Urine Blood Urine Nitrite Ur Leukocyte Esterase Urine RBC Urine WBC Ur Squamous Epith Cells Uric Acid Crystals Urine Bacteria Urine Opiates Screen Ur Barbiturates Screen Ur Phencyclidine Scrn Ur Amphetamines Screen U Benzodiazepines Scrn Urine Cocaine Screen U Marijuana (THC) Screen Ethyl Alcohol Respiratory Panel Tamez See Note Adenovirus (Rapid PCR) Not Detected B.pert (TEM-PCR) Not Detected B.parapertussis DNA PCR Not Detected C. pneumoniae DNA (PCR) Not Detected Coronavirus (PCR) Coronavirus OC43 (PCR) Not Detected Coronavirus HKU1 (PCR) Not Detected Coronavirus 229E (PCR) Not Detected COVID-19 (RADHA) COVID-19 Clin Com Coronavirus NL63 (PCR) Not Detected Human Metapneumovir PCR Not Detected Influenza A (RT-PCR) Not Detected Influenza Type A (PCR) Influenza B (RT-PCR) Not Detected Influenza Type B (PCR) M. pneumoniae (PCR) Not Detected Parainfluenza 1 (PCR) Not Detected Parainfluenza 2 (PCR) Not Detected Parainfluenza 3 (PCR) Not Detected Parainfluenza 4 (PCR) Not Detected RSV (PCR) Not Detected RSV RNA Qual (PCR) Entero/Rhino (PCR) Detected A SARS-CoV-2 RNA (RT-PCR) Not Detected Chest X-Ray 12/13/20 21:54 IMPRESSION: Commonly reported imaging features of Covid 19 or viral pneumonia are present with multifocal ill-defined probable groundglass infiltrates. Other processes such as influenza pneumonia or organizing pneumonia, as can be seen with drug toxicity and connective tissue disease, can cause a similar imaging pattern. Also present is a possible 1 cm lung nodule on the right described above. Follow-up is recommended after treatment. Chest CTA 12/14/20 00:45 IMPRESSION: 1. Multifocal groundglass infiltrates are seen suggestive of Covid 19 2. Multiple lung masses/masslike infiltrates are present. Malignancy needs to be considered and a repeat exam performed after antibiotic treatment, if infection is suspected. 3. Mediastinal and hilar nodes as described above. 4. Indeterminate left adrenal mass. Assessment and Plan (1) Acute hypoxemic respiratory failure: Status: Acute (2) COPD (chronic obstructive pulmonary disease): Status: Acute (3) Pneumonia: Status: Acute Assessment and Plan: hospital d#1 55yo M with COPD, opioid dependence presented with dyspnea, productive cough admitted with sepsis from pneumonia # pneumonia - enterovirus/rhinovirus positive. COVID-19 negative. doxycycline + ceftriaxone d#2. follow BCx, trend PCT # suspicious lung masses - will need repeat CT after PNA resolve # COPD exacerbation - IV steroids, prn bronchodilators # opioid dependence with recent heroin use - reports he is on 48 mg of methadone daily- will need to verify dose - addiction medicine consult - continue clonidine # gastritis - continue H2RA # VTE ppx - continue UFH
--- NOTE | 2020-12-14 16:41 | PC.NURSE ---
attempt to call for report. sonido will call back. pt placed on venti at 8l
--- NOTE | 2020-12-14 16:52 | PM.EVENT ---
Event Note Date of Service: 12/14/20 Event Note: THIS PATIENT WAS SEEN BY ME TODAY FOR PULMONARY CONSULTATION. HISTORY, HOSPITAL COURSE, LAB RESULTS REVIEWED PATIENT WAS EXAMINED AND INTERVIEWED. COMPLETE NOTE IS DICTATED. A: MORBID OBESITY AND LONG-TERM OBSTRUCTIVE SLEEP APNEA./ CHRONIC HYPOVENTILATION SYNDROME. THE HYPOVENTILATION PART IS IMPROVED. P; PATIENT SHOULD USE CPAP AT NIGHT.. I ADVISED HER THAT SHE SHOULD HAVE HER OWN CPAP MACHINE BROUGHT TO THE HOSPITAL, AND SHOULD START USING IT AT NIGHT. ONCE THE CPAP MACHINE IS HERE WE CAN CHECK HER PRESSURE SETTINGS, AND CHANGE IF NEEDED.
[2020-12-14] MEDS: Doxycycline Hyclate 100 MG in 0.9 % Sodium Chloride 250 ML 166.67 MG IV (18:43)
[2020-12-14 20:11] LABS: VBG Base Excess 3.4 mmol/L; VBG HCO3 29 mmol/L (22-26); VBG pCO2 47 mmHg; VBG pH 7.39 (7.32-7.43); VBG pO2 37 mmHg
[2020-12-14 20:11] LABS: Venous Blood Gas Refer to POC result
[2020-12-14] MEDS: vancomycin HCL 1,000 MG in 0.9 % Sodium Chloride 250 ML 270 MG IV (20:34)
[2020-12-15] VITALS (9 sets, daily range): BP systolic 92–127; BP diastolic 53–70; PULSE 61–91; RESP 15–20; TEMP 36.3–36.8; O2SAT 90–96
[2020-12-15] MEDS: Enoxaparin Sodium 40 MG/0.4 ML SYRINGE SUBCUT ×2 (00:20→23:52)
[2020-12-15] MEDS: cefTRIAXone sodium 1 GM in 0.9 % Sodium Chloride 50 ML IV ×2 (00:20→23:52)
[2020-12-15] MEDS: methylPREDNISolone Sod Succ 40 MG/ML VIAL IVPUSH ×4 (00:21→23:52)
--- NOTE | 2020-12-15 03:00 | MHC.RECOVRN ---
T/w met with pt to f/u after receiving methadone this morning. Pt denies withdrawal symptoms, appears to be resting comfortably. Pt reports first use approx 2 years ago. Pt reports one instance of IV use, otherwise IN. Pt states My life was shit, I wanted to numb it. My house was foreclosed on, I was homeless and on the street. I worked for the state for 23 years. Pt reports typical use was 5-6 bags daily. After 1 year of heroin use, pt was prescribed Suboxone but did not find it helpful. Per [facility], last Suboxone script filled 10/2019. Pt transitioned to methadone and had been on 95 mg but has since been decreased due to missing doses. However, pt believes methadone to be effective. T/w encouraged pt to reach out if questions or concerns arise. Will continue to follow.
--- NOTE | 2020-12-15 03:00 | MHC.RECOVRN ---
Addendum entered by Elodia Salazar 12/15/20 16:20: Time entered in error. Patient seen at 3:00PM. Original Note: T/w met with pt to f/u after receiving methadone this morning. Pt denies withdrawal symptoms, appears to be resting comfortably. Pt reports first use approx 2 years ago. Pt reports one instance of IV use, otherwise IN. Pt states My life was shit, I wanted to numb it. My house was foreclosed on, I was homeless and on the street. I worked for the [employer] for 23 years. Pt reports typical use was 5-6 bags daily. After 1 year of heroin use, pt was prescribed Suboxone but did not find it helpful. Per [facility], last Suboxone script filled 10/2019. Pt transitioned to methadone and had been on 95 mg but has since been decreased due to missing doses. However, pt believes methadone to be effective. T/w encouraged pt to reach out with questions or concerns. Will continue to follow.
[2020-12-15] MEDS: Doxycycline Hyclate 100 MG in 0.9 % Sodium Chloride 250 ML 166.67 MG IV ×2 (05:38→17:19)
[2020-12-15] MEDS: methADONE HCl 5 MG TABLET PO (05:38)
[2020-12-15 07:16] LABS: D Dimer 672 NG/ML
[2020-12-15 07:35] LABS: Anion Gap 14 (12-20); Blood Urea Nitrogen 29 mg/dL (9-16); Calcium 9.4 mg/dL (8.4-10.2); Carbon Dioxide 27 mmol/L (22-29); Chloride 99 mmol/L (96-108); Creatinine Clr Calc Pharmacy 107.8; Estimated Glomerular Filt Rate > 60; Glucose Random 136 mg/dL (60-115); Potassium 4.6 mmol/L (3.3-5.1); Sodium 135 mmol/L (135-145)
[2020-12-15 07:50] LABS: VBG Base Excess 1.4 mmol/L; VBG HCO3 25 mmol/L (22-26); VBG pCO2 37 mmHg; VBG pH 7.43 (7.32-7.43); VBG pO2 65 mmHg
[2020-12-15 07:51] LABS: Venous Blood Gas Refer to POC result
[2020-12-15 08:15] LABS: HIV AB/AG Nonreactive (Nonreactive); HIV Num 1 0.05 S/CO (0.00-0.99)
[2020-12-15 08:19] LABS: HBS Num1 1.27 mIU/mL (0-7.99); HBc Num1 0.08 S/CO (0.00-0.79); HIV AB/AG Nonreactive (Nonreactive); HIV Num 1 0.05 S/CO (0.00-0.99); Hepatitis B Core Antibody Nonreactive (Nonreactive); ~Hepatitis B Surface Antibody NONREACTIVE (Nonreactive)
[2020-12-15 08:20] LABS: Procalcitonin 0.18 ng/mL
[2020-12-15 08:39] LABS: HBsAGNum1 0.16 S/CO (0.00-0.99); Hepatitis B Surface Antigen Negative (Negative); ~Hepatitis C Antibody Nonreactive (Nonreactive)
[2020-12-15 08:42] LABS: ~HepC Num1 0.11 S/CO (0.00-0.79); ~Hepatitis C Antibody Nonreactive (Nonreactive)
[2020-12-15] MEDS: cloNIDine HCL 0.2 MG TABLET PO ×3 (08:46→20:55)
[2020-12-15] MEDS: Famotidine 20 MG TABLET PO ×2 (08:46→20:55)
[2020-12-15] MEDS: 0.9 % Sodium Chloride Flush 3 ML SYRINGE IVFLUSH ×3 (08:47→20:55)
[2020-12-15] MEDS: vancomycin HCL 1,000 MG in 0.9 % Sodium Chloride 250 ML 270 MG IV (08:47)
--- NOTE | 2020-12-15 09:03 | MHC.CM.PN ---
CM met with Patient at bedside. Patient is currently living at the [facility] in [place], with his Girlfriend and the goal for dc is to return there. CM has initiated and will follow for dc planning. Patient is functionally independent and his PCP is Dr. Marge Vela/[facility].
--- NOTE | 2020-12-15 09:30 | MHC.RECOVRN ---
55 year old male presented to [facility] on 12/13 from home with c/o difficulty breathing for 2-3 days. Patient reports hx of COPD, went to [facility] yesterday morning but left before the COVID result, prescribed prednisone. Patient reports that he missed yesterdays dose of methadone, but took his dose today at the clinic, then took prednisone and felt nauseated. 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 Patient decreased from 4L via NC down to 2L and sp02 maintains at 93% per radio mechanic. Upon evaluation, pt admitted for acute hypoxemic respiratory failure and further management of mild COPD exacerbation and pneumonia.? T/w met with pt in 461 after order was placed for addiction medicine consult. Pt currently receives?48 mg methadone daily through [facility] in [place] x 7-8 months. Pt reports using heroin, IN, occaisonally, less than twice a week. Last use prior to arrival to [facility], 2 bags, IN. Pt denies other substances. Pt currently?reports feeling okay and denies withdrawal symptoms; pt waiting for methadone and would like to continue speaking to t/w after dose received. T/w provided contact information and informed pt to reach out if questions or concerns arise and informed pt t/w will continue to follow. Pt agreeable.?
[2020-12-15 09:58] LABS: MRSA Nasal PCR NEGATIVE (Negative); SA Nasal PCR NEGATIVE (Negative)
--- NOTE | 2020-12-15 10:11 | PM.EVENT ---
Event Note Date of Service: 12/15/20 Event Note: PATIENT WAS SEEN BY ME THIS MORNING FOR PULMONARY CONSULTATION. COMPLETE NOTE IS DICTATED. A: ACUTE EXACERBATION COPD MULTI LOBE WERE INFILTRATES, GROUND-GLASS AND CONSOLIDATIVE, COVID-19 TEST NEGATIVE BECAUSE PATIENT HAD EPISODE OF VOMITING POSSIBILITY OF PULMONARY ASPIRATION SHOULD BE CONSIDERED. HISTORY OF SMOKING AND NARCOTIC ABUSE. P: AGREE WITH BROAD-SPECTRUM ANTIBIOTIC TREATMENT WITH CEFTRIAXONE AND DOXYCYCLINE AT THIS TIME. IV SOLU-MEDROL 40 MG Q.8 HOURS FOR A FEW DAYS THEN A SHORT COURSE OF PREDNISONE. DUONEB UPDRAFTS Q 6 HOURS P.R.N. O2 2 L/MINUTE AND ADJUST TO KEEP O2 SAT ABOVE 90%. PATIENT NEEDS TO BE WATCH FOR ANY WITHDRAWAL SYMPTOMS. CONTINUE HIS DAILY METHADONE DOES. WATCH FOR ANY IMPENDING RESPIRATORY DISTRESS. PATIENT WOULD NEED REPEAT CT SCAN OF THE CHEST AFTER TREATMENT OF ACUTE INFECTION.
--- NOTE | 2020-12-15 14:57 | PM.HEMONCCN ---
Subjective - Subjective Chief complaint: Consult for question of lung cancer. Patient: new to practice Consult date: 12/15/20 Requesting Physician: Martín. Primary Care Provider: Unknown Physician HPI - Consult Narrative Reason for consult: Consult for question lung cancer. Narrative: Kota Cardoso is a pleasant 55 year old gentleman who presented yesterday, with a chief complaint of shortness of breath. Patient mentions that over the past 3 days he has been having shortness of breath with has been gradually worsening. This is associated with cough with greenish sputum. Denies any fevers but noted chills. Yesterday he went to the ER at [facility] and was given prednisone. After he took the prednisone, last night he had an episode of vomiting and abdominal discomfort. Currently denies any nausea vomiting or abdominal pain. Denies any chest pain palpitations lightheadedness or dizziness. Denies any COVID exposures. Review of all other systems is otherwise negative. ER course: For ER team patient was mildly hypoxic and was placed on supplemental oxygen. Breathing comfortably. Chest x-ray showed findings consistent with possible COVID pneumonia. CTA from yesterday: 1. Multifocal groundglass infiltrates are seen suggestive of Covid 19 2. Multiple lung masses/masslike infiltrates are present. Malignancy needs to be considered and a repeat exam performed after antibiotic treatment, if infection is suspected. 3. Mediastinal and hilar nodes as described above. 4. Indeterminate left adrenal mass. Past medical history of: COPD, opiate dependence on methadone. Review of Systems - Constitutional Reports system reviewed and no additional complaints, except as documented, Reports lack of energy, Reports malaise, Reports weight loss - Eyes Reports system reviewed and no additional complaints, except as documented - ENT Reports system reviewed and no additional complaints, except as documented - Cardiovascular Reports system reviewed and no additional complaints, except as documented - Respiratory Reports no additional respiratory complaints, Reports excessive phlegm production, Reports pain on inspiration, Reports dyspnea - Gastrointestinal Reports system reviewed and no additional complaints, except as documented - Genitourinary Genitourinary: Reports no additional male genitourinary complaints - Musculoskeletal Reports system reviewed and no additional complaints, except as documented - Integumentary/Breasts Skin/Breast: Reports no additional skin complaints - Neurologic Reports system reviewed and no additional complaints, except as documented - Psychiatric Reports system reviewed and no additional complaints, except as documented - Endocrine Reports no additional endocrine complaints - Hematologic/Lymphatic Reports system reviewed and no additional complaints, except as documented - Allergic/Immunologic Reports system reviewed and no additional complaints, except as documented Oncology Screenings - ECOG Performance Status ECOG Performance Status: 2 REPLACED BY [facility] Medical History: Medical History (Last Reviewed 12/14/20 @ 14:44 by Karen Lucas MD) COPD (chronic obstructive pulmonary disease) Functional capacity: wheelchair bound Patient : No Family history: reviewed and not pertinent Social History: Social History (Last Reviewed 12/14/20 @ 14:45 by Karen Lucas MD) Living Situation History: Household Members: Significant Other Housing: House Do you presently have visiting nurse or other home services: No Alcohol History: Alcohol intake: never Tobacco History: Smoking Status: Light tobacco smoker Tobacco Type: Cigarette Smoked in Last 30 Days: Yes Substance Use History: Use of substances other than those prescribed or required for medical reasons: Yes Substance Use Type: Heroin Substance Use Frequency: Occasionally Last Used Substance: Just Prior to Admission Currently Displaying Signs/Symptoms of Drug Intoxication Withdrawal: No Any prior treatment program specific to substance use: Yes Any prior treatment program specific to substance use comment: methadone Domestic Abuse History: Have you been hit, kicked, punched, or otherwise hurt by someone within the past year? If so, by whom?: No Do you feel safe in your current relationship?: Yes Is there a partner from a previous relationship who is making you feel unsafe now?: No Are you made to feel afraid or neglected: No Advance Directives: Advance Directives: No Advance Directives Information Provided: Advance Directives Information Provided comment: declined Homicidal Assessment: Do you have thoughts of harming others: None Do you have a plan to hurt others: No Plan Nutrition Assessment: Recently lost weight without trying: No Eating poorly because of decreased appetite: No Nutrition Risks: No Nutritional Risk Patient : No Occupation Assessmet: service: No Current occupational status: disabled Smoking status: Light tobacco smoker Home Medications and Allergies Current Medications: Current Medications Generic Name Dose Route Start Last Admin Trade Name Freq PRN Reason Stop Dose Admin Acetaminophen 650 mg 12/14/20 00:11 Acetaminophen 325 Mg Tablet PO Q6H PRN Pain, Mild (Pain Scale 1-3) Albuterol Sulfate 4 puff 12/14/20 08:44 12/14/20 09:31 Albuterol Sulfate 90 Mcg 8 Gm Inhaler INHALE 4 puff Q3H PRN Administration Shortness of Breath/Wheezing Clonidine HCl 0.2 mg 12/14/20 09:00 12/15/20 08:46 Clonidine Hcl 0.2 Mg Tablet PO 0.2 mg TID JOHN Administration Protocol Enoxaparin Sodium 40 mg 12/14/20 00:15 12/15/20 00:20 Enoxaparin Sodium 40 Mg/0.4 Ml Syringe SUBCUT 40 mg Q24H JOHN Administration Famotidine 20 mg 12/14/20 09:00 12/15/20 08:46 Famotidine 20 Mg Tablet PO 20 mg BID JOHN Administration Fluticasone Propionate 2 spray 12/16/20 09:00 Fluticasone Propionate Nasal 16 Gm [place] NOSTRIL-B DAILY [facility] Fluticasone/Vilanterol 1 puff 12/16/20 08:00 Fluticasone/Vilanterol 200/25 Blst.W.Dev INHALE RDAILY [facility] Ceftriaxone Sodium 1 gm/ 50 mls @ 100 mls/hr 12/14/20 00:15 12/15/20 01:05 Sodium Chloride IV Infused Q24H JOHN Infusion Doxycycline Hyclate 100 mg/ 250 mls @ 166.67 mls/hr 12/14/20 18:00 12/15/20 07:23 Sodium Chloride IV Infused Q12H JOHN Infusion Vancomycin HCl 1,000 mg/ 270 mls @ 270 mls/hr 12/14/20 20:00 12/15/20 09:57 Sodium Chloride IV Infused Q12H JOHN Infusion Methadone HCl 50 mg 12/15/20 10:00 12/15/20 11:34 Methadone Hcl 1 Mg/0.1 Ml Oral.Conc PO 50 mg DAILY JOHN Administration Methylprednisolone Sodium Succinate 40 mg 12/14/20 00:15 12/15/20 08:47 Methylprednisolone Sod Succ 40 Mg/Ml Vial IVPUSH 40 mg Q8H JOHN Administration Pharmacy Consult 1 each 12/14/20 18:58 Consult Rx Vancomycin Dosing MISCELLANE DAILY PRN Consult order Sodium Chloride 3 ml 12/14/20 08:00 12/15/20 08:47 0.9 % Sodium Chloride Flush 3 Ml Syringe IVFLUSH 3 ml QSHIFT JOHN Administration Tiotropium [place] 1 puff 12/16/20 08:00 Tiotropium [place] 18 Mcg Cap.W.Dev INHALE RDAILY JOHN Home Medications Medication Instructions Recorded Confirmed Type albuterol sulfate 2 puff PO QID 12/14/20 12/14/20 History clonidine HCl 1 tab PO TID PRN 12/14/20 12/14/20 History fluticasone propion-salmeterol 1 puff INHALATION BID 12/14/20 12/14/20 History [Wixela Inhub] fluticasone propionate 2 spray INTRANASAL DAILY 12/14/20 12/14/20 History ipratropium-albuterol [Combivent 1 puff INHALATION QID PRN 12/14/20 12/14/20 History Respimat] umeclidinium [Incruse Ellipta] 1 puff INHALATION DAILY 12/14/20 12/14/20 History methadone 48 mg PO DAILY 12/15/20 12/15/20 History Allergies Allergy/AdvReac Type Severity Reaction Status Date / Time No Known Allergies Allergy Verified 12/13/20 21:50 Physical Exam Vital signs: Vital Signs Temp 97.4 F 12/15/20 11:37 Pulse 64 12/15/20 11:37 Resp 20 12/15/20 11:37 BP 127/69 12/15/20 11:37 Pulse Ox 90 L 12/15/20 11:37 Intake & Output 12/14/20 12/15/20 12/15/20 18:59 06:59 18:59 Intake Total 100 / 1870 1770 / 1870 620 / 620 Balance 100 / 1870 1770 / 1870 620 / 620 Intake: Intake, Oral Amount 1200 / 1200 100 / 100 Intake, IV Amount 100 / 670 570 / 670 520 / 520 Doxycycline Hyclate 100 mg In 0 250 / 250 250 / 250 .9 % Sodium Chloride 250 ml @ 166.67 mls/hr IV Q12H JOHN Rx#: [id number] cefTRIAXone sodium 1 gm In 0.9 50 / 50 % Sodium Chloride 50 ml @ 100 mls/hr IV Q24H JOHN Rx#: [id number] metroNIDAZOLE/NS 500 mg In 100 100 / 100 ml @ 100 mls/hr IV Q8H JOHN Rx#: [id number] vancomycin HCL 1,000 mg In 0.9 270 / 270 270 / 270 % Sodium Chloride 250 ml @ 270 mls/hr IV Q12H JOHN Rx#: [id number] Other: Meal Refused No No NPO No Breakfast % Eaten 100% Lunch % Eaten 100% Dinner % Eaten 100% Number of Unmeasured Voids 1 2 Urine Bathroom Bathroom Urine Color Yellow Last Bowel Movement 12/13/20 Stool Bathroom Bathroom Weight 74.843 kg - Constitutional Present: moderate distress - Routine HEENT Exam Head: Present: normal inspection ENT: Present: mucous membranes moist - Routine Neck Exam Present: supple - Routine Respiratory Exam Present: CTAB - Routine Cardiovascular Exam Cardiovascular: Present: RRR, S1, S2 - Routine Abdominal Exam Present: soft, nontender - Routine Rectal Exam Patient deferred: digital exam - Routine Extremities Exam Present: nontender - Routine Skin Exam Present: intact Hem/Onc Consult Result - Labs CBC & Chem 7: 12/16/20 05:38 12/15/20 06:19 Labs: BMP 12/15/20 06:19 Sodium 135 Potassium 4.6 Chloride 99 Carbon Dioxide 27 BUN 29 H Creatinine 0.80 Calcium 9.4 Assessment and Plan (1) Lung mass Status: Acute This is a pleasant 55-year-old gentleman, who presented with pulmonary symptoms, in the setting of heroin use. CT scan of the chest from yesterday: CTA from yesterday: 1. Multifocal groundglass infiltrates are seen suggestive of Covid 19. 2. Multiple lung masses/masslike infiltrates are present. Malignancy needs to be considered and a repeat exam performed after antibiotic treatment, if infection is suspected. 3. Mediastinal and hilar nodes as described above. 4. Indeterminate left adrenal mass. There is a question of malignancy however the patient does have super added infiltrates and question of pneumonia question of COVID. Differential diagnosis: Possibilities include: Bacterial, viral versus fungal infection, less likely eosinophilic pneumonia related to drug use. Need to evaluate for HIV There doesnt seem to be any COVID,not necessary isolation at this time Status: Acute Would continue Ceftriaxone and Doxycycline Would check HIV Pulmonary involvement ?bronchoscopy PLAN: I would recommend, we treat him for the infection, with antibiotics as you are doing. One that has cleared up can repeat another set of imaging and then biopsy. Thank you for this consult, CC:
--- NOTE | 2020-12-15 15:36 | HO.PM.IMPN ---
Subjective Subjective Date of Service: 12/15/20 Interval History: Still requiring 4-6L O2 via NC Cough somewhat improved Physical Exam Vital Signs: Vital Signs: Last Vital Signs Temp 97.7 F 12/15/20 15:14 Pulse 67 12/15/20 15:14 Resp 16 12/15/20 15:14 BP 108/70 12/15/20 15:14 Pulse Ox 93 12/15/20 15:14 Oxygen Flow Rate 4 12/13/20 21:38 Body Mass Index 23.0 Gen: in no acute distress HEENT: sclera anicteric, moist mucus membranes Neck: supple Lungs: diminished bilaterally Heart: regular rate and rhythm, no murmurs Abd: soft, non-tender, non-distended Ext: no edema Skin: warm/well-perfused Neuro: alert and oriented x3, no focal findings Psych: appropriate affect Objective Data Current Medications Generic Name Dose Route Start Last Admin Trade Name Freq PRN Reason Stop Dose Admin Acetaminophen 650 mg 12/14/20 00:11 Acetaminophen 325 Mg Tablet PO Q6H PRN Pain, Mild (Pain Scale 1-3) Albuterol Sulfate 4 puff 12/14/20 08:44 12/14/20 09:31 Albuterol Sulfate 90 Mcg 8 Gm Inhaler INHALE 4 puff Q3H PRN Administration Shortness of Breath/Wheezing Clonidine HCl 0.2 mg 12/14/20 09:00 12/15/20 08:46 Clonidine Hcl 0.2 Mg Tablet PO 0.2 mg TID JOHN Administration Protocol Enoxaparin Sodium 40 mg 12/14/20 00:15 12/15/20 00:20 Enoxaparin Sodium 40 Mg/0.4 Ml Syringe SUBCUT 40 mg Q24H JOHN Administration Famotidine 20 mg 12/14/20 09:00 12/15/20 08:46 Famotidine 20 Mg Tablet PO 20 mg BID JOHN Administration Fluticasone Propionate 2 spray 12/16/20 09:00 Fluticasone Propionate Nasal 16 Gm [place] NOSTRIL-B DAILY JOHN Fluticasone/Vilanterol 1 puff 12/16/20 08:00 Fluticasone/Vilanterol 200/25 Blst.W.Dev INHALE RDAILY [facility] Ceftriaxone Sodium 1 gm/ 50 mls @ 100 mls/hr 12/14/20 00:15 12/15/20 01:05 Sodium Chloride IV Infused Q24H JOHN Infusion Doxycycline Hyclate 100 mg/ 250 mls @ 166.67 mls/hr 12/14/20 18:00 12/15/20 07:23 Sodium Chloride IV Infused Q12H JOHN Infusion Vancomycin HCl 1,000 mg/ 270 mls @ 270 mls/hr 12/14/20 20:00 12/15/20 09:57 Sodium Chloride IV Infused Q12H JOHN Infusion Methadone HCl 50 mg 12/15/20 10:00 12/15/20 11:34 Methadone Hcl 1 Mg/0.1 Ml Oral.Conc PO 50 mg DAILY JOHN Administration Methylprednisolone Sodium Succinate 40 mg 12/14/20 00:15 12/15/20 08:47 Methylprednisolone Sod Succ 40 Mg/Ml Vial IVPUSH 40 mg Q8H [facility] Administration Pharmacy Consult 1 each 12/14/20 18:58 Consult Rx Vancomycin Dosing MISCELLANE DAILY PRN Consult order Sodium Chloride 3 ml 12/14/20 08:00 12/15/20 08:47 0.9 % Sodium Chloride Flush 3 Ml Syringe IVFLUSH 3 ml QSHIFT [facility] Administration Tiotropium [place] 1 puff 12/16/20 08:00 Tiotropium [place] 18 Mcg Cap.W.Dev INHALE RDAILY [facility] Labs CBC & Chem 7: 12/14/20 07:35 12/15/20 06:19 Labs: Laboratory Results - last 24 hr 12/14/20 12/14/20 12/14/20 15:38 15:38 20:02 D-Dimer VBG pH 7.39 VBG pCO2 47 VBG pO2 37 VBG HCO3 29 H VBG O2 Saturation 54.0 VBG Base Excess 3.4 Sodium Potassium Chloride Carbon Dioxide Anion Gap BUN Creatinine Estim Creat Clear Calc Estimated GFR Random Glucose Calcium Procalcitonin Nasal Screen MRSA (PCR) Nasal S. aureus Screen Nasal MRSA/S.aureus Interp Hep Bs Antigen Hep Bs Antibody Hep B Core Total Ab Hepatitis C Ab (EIA) Nonreactive HIV 1&2 Ab/P24 Ag 4thGn Nonreactive 12/15/20 12/15/20 12/15/20 06:07 06:19 06:19 D-Dimer 672 VBG pH VBG pCO2 VBG pO2 VBG HCO3 VBG O2 Saturation VBG Base Excess Sodium 135 Potassium 4.6 Chloride 99 Carbon Dioxide 27 Anion Gap 14 BUN 29 H Creatinine 0.80 Estim Creat Clear Calc 107.8 Estimated GFR > 60 Random Glucose 136 H Calcium 9.4 Procalcitonin Nasal Screen MRSA (PCR) NEGATIVE Nasal S. aureus Screen NEGATIVE Nasal MRSA/S.aureus Interp SEE NOTE Hep Bs Antigen Hep Bs Antibody Hep B Core Total Ab Hepatitis C Ab (EIA) HIV 1&2 Ab/P24 Ag 4thGn 12/15/20 12/15/20 12/15/20 06:19 06:19 07:43 D-Dimer VBG pH 7.43 VBG pCO2 37 VBG pO2 65 VBG HCO3 25 VBG O2 Saturation 89.0 VBG Base Excess 1.4 Sodium Potassium Chloride Carbon Dioxide Anion Gap BUN Creatinine Estim Creat Clear Calc Estimated GFR Random Glucose Calcium Procalcitonin 0.18 Nasal Screen MRSA (PCR) Nasal S. aureus Screen Nasal MRSA/S.aureus Interp Hep Bs Antigen Negative Hep Bs Antibody NONREACTIVE Hep B Core Total Ab Nonreactive Hepatitis C Ab (EIA) Nonreactive HIV 1&2 Ab/P24 Ag 4thGn Nonreactive Microbiology Microbiology Results: Microbiology 12/13/20 22:17 Blood - Venous Blood Culture - Preliminary No growth after 24 hours. 12/13/20 22:05 Blood - Venous Blood Culture - Preliminary No growth after 24 hours. Assessment and Plan (1) Acute hypoxemic respiratory failure: Status: Acute (2) COPD (chronic obstructive pulmonary disease): Status: Acute (3) Pneumonia: Status: Acute Assessment and Plan: hospital d#2 55yo M with COPD, opioid dependence presented with dyspnea, productive cough admitted with sepsis from pneumonia # pneumonia - enterovirus/rhinovirus positive. COVID-19 negative. doxycycline + ceftriaxone d#3. follow BCx, trend PCT, check Legionella UAg. suspect aspiration. appreciate pulmonology + ID consults # acute hypoxic respiratory failure - supplemental O2, wean as tolerated # suspicious lung masses - will need repeat CT after PNA resolves- appreciate heme/onc consult # COPD exacerbation - IV steroids, prn bronchodilators # opioid dependence with recent heroin use - continue methadone- verified dose # gastritis - continue H2RA # VTE ppx - continue LMWH # dispo - pt is homeless
--- NOTE | 2020-12-15 16:07 | CONS_ITS ---
DATE OF SERVICE: 12/15/2020 HISTORY OF PRESENT ILLNESS: This 55-year-old gentleman is admitted since yesterday with increased shortness of breath of 2 to 3 days duration. On 12/13, seen in the emergency room at [facility] and sent home. He was given prednisone, which he did take 1 dose. Later on, he used his recently started methadone and also 2 bags of heroin. He vomited a few times and had some abdominal discomfort. Following that, his breathing was getting worse, so he presented in the emergency room over here. His COVID test came back negative. Chest x-ray and CTA of the chest show infiltrates in both lungs suggestive of COVID. The patient is admitted for treatment of his acute respiratory symptoms. PAST MEDICAL HISTORY: The patient does have history of chronic obstructive pulmonary disease for many years. He is not very clear about his regimen, but it is noted that he is on Wixela inhalation twice a day. Also noted is Flovent 2 puffs twice a day, Combivent Respimat every 6 hours p.r.n., and Incruse Ellipta 1 inhalation daily. The patient denies any previous history of hospitalization. REVIEW OF SYSTEMS: Currently, he denies nausea or vomiting. Denies any abdominal pain at this time. He feels generally weak and has some aches and pains. PERSONAL HISTORY: He has been smoking cigars a few per day for long time and history of narcotic abuse as noted above. The patient uses 2 to 3 bags of heroin daily. Currently, he is in methadone program just started a few days ago. PHYSICAL EXAMINATION: GENERAL: A 55-year-old male of thin build, relatively comfortable at this time. VITAL SIGNS: Temperature is normal. Respiratory rate 14. He is conversing well without any dyspnea. EAR, NOSE, THROAT: Examination is normal. NECK: No JVD. Carotids normal. Trachea midline. CHEST: Symmetrical. Percussion note resonant. Breath sounds are somewhat distant, but clear on both sides. I did not hear any crepitations or wheezes. CARDIAC: Sounds are distant. Rhythm regular. No murmurs. ABDOMEN: Flat, soft, and nontender. No hepatosplenomegaly. EXTREMITIES: No edema or varicosities. Peripheral pulses are normal. LABORATORY DATA: White cell count 22.9, eosinophil count 0.1. COVID test negative. Respiratory panel for respiratory virus infections is also negative. IMAGING: Chest x-ray on 12/13 shows ground-glass opacities and small infiltrates on both sides. CTA of the chest shows multifocal ground-glass infiltrates only small in size and also masslike infiltrates are present, especially in the left lower lobe. CLINICAL IMPRESSION: 1. Chronic obstructive pulmonary disease, acute exacerbation. 2. Nonspecific bilateral infiltrates, I think may be related to pulmonary aspiration or viral respiratory infection. 3. The radiologic picture is suggestive of COVID infection, but his COVID test is negative. 4. History of smoking. 5. History of drugs abuse. RECOMMENDATIONS: 1. Should be treated with broad-spectrum antibiotic coverage and combination of ceftriaxone and doxycycline is fine at this time. 2. DuoNeb updrafts q.4-6 hours p.r.n. 3. Oxygen supplementation to maintain O2 saturation above 90%. 4. Smoking cessation. 5. The patient would need to stop using narcotics. 6. Watch closely for any increasing respiratory distress. 7. Once he is treated for acute infectious process, the patient should have a repeat CT scan in 10 to 14 days and if the lung density especially in the left lower lobe is persistent, further workup would be needed. Thank you very much for asking me to see this patient. MD REY Savage/VON / [id number]
--- NOTE | 2020-12-15 18:31 | PC.NURSE ---
1250- Pt O2 ranging from 87-90% on 5L, pt increased to 6L and now at 91%. Pt had dizziness when tried to get up , otherwise no acute complaints. Dr. Resendiz made aware. Requested pt be placed on oxymizer. Oxymizer set up by respiratory. Sating 93-95% on 10L oxymizer. Pt states dizziness has improved, no complaints at this time.
[2020-12-16] VITALS (9 sets, daily range): BP systolic 103–120; BP diastolic 57–72; PULSE 56–67; RESP 15–20; TEMP 35.7–36.7; O2SAT 94–98
[2020-12-16] MEDS: Doxycycline Hyclate 100 MG in 0.9 % Sodium Chloride 250 ML 166.67 MG IV ×2 (06:32→17:09)
[2020-12-16 06:37] LABS: MANUAL DIFF FLAG NO
[2020-12-16 06:52] LABS: Basophils Percent Auto 0.1 % (0-2); Hematocrit 43.6 % (42-52); Hemoglobin 14.4 g/dl (14.0-18.0); Imm Gran Abs Auto 0.11 X10*3/uL (0.00-0.03); Imm Gran Pct Auto 0.8 % (0.0-0.4); Lymphocytes Absolute Auto 1.5 X10*3/uL (1.2-4.9); Lymphocytes Percent Auto 10.9 % (20-40); Mean Corpuscular Hemoglobin 27.8 pg (27.0-33.0); Mean Corpuscular Volume 84.2 fL (80-98); Mean Platelet Volume 9.9 fL (9.4-12.4); Monocytes Absolute Auto 0.6 X10*3/uL (0.1-1.2); Monocytes Percent Auto 4.7 % (2-11); Neutrophils Absolute Auto 11.3 X10*3/uL (2.0-8.3); Neutrophils Percent Auto 83.5 % (45-73); Platelet Count 337 X10*3/uL (160-400); Red Blood Count 5.18 X10*6/uL (4.60-5.80); Red Cell Distribution Width 13.9 % (11.0-16.0); White Blood Count 13.5 X10*3/uL (4.8-10.8)
[2020-12-16 07:42] LABS: C Reactive Protein 6.46 mg/dL (< or = 0.50)
[2020-12-16] MEDS: methylPREDNISolone Sod Succ 40 MG/ML VIAL IVPUSH (08:06)
[2020-12-16] MEDS: cloNIDine HCL 0.2 MG TABLET PO ×3 (08:06→20:15)
[2020-12-16] MEDS: 0.9 % Sodium Chloride Flush 3 ML SYRINGE IVFLUSH ×3 (08:06→20:15)
[2020-12-16] MEDS: Famotidine 20 MG TABLET PO ×2 (08:06→20:15)
[2020-12-16] MEDS: Fluticasone Propionate Nasal 16 GM SPRAY 2 SPRAY NOSTRIL-B (08:12)
--- NOTE | 2020-12-16 11:21 | HO.PM.IMPN ---
Subjective Subjective Date of Service: 12/18/20 Interval History: Pneumonia f/u, oxygenation is better Presently at 97 on 5 liters Review of Systems Gen: no fever Resp:+ sob, no cough CV: no chest, no MORALES, no leg edema GI: No n/v, no abd pain Neuro: No confusion Physical Exam Vital Signs: Vital Signs: Last Vital Signs Temp 96.3 F L 12/16/20 07:19 Pulse 61 12/16/20 07:19 Resp 19 12/16/20 07:19 BP 119/72 12/16/20 07:19 Pulse Ox 97 12/16/20 07:19 Oxygen Flow Rate 4 12/13/20 21:38 Body Mass Index 23.0 Const: Other: Gen: in no acute distress HEENT: sclera anicteric, moist mucus membranes Neck: supple Lungs: diminished bilaterally, rhonchi Heart: regular rate and rhythm, no murmurs Abd: soft, non-tender, non-distended Ext: no edema Skin: warm/well-perfused Neuro: alert and oriented x3, no focal findings Psych: appropriate affect Objective Data Current Medications Generic Name Dose Route Start Last Admin Trade Name Freq PRN Reason Stop Dose Admin Acetaminophen 650 mg 12/14/20 00:11 Acetaminophen 325 Mg Tablet PO Q6H PRN Pain, Mild (Pain Scale 1-3) Albuterol Sulfate 4 puff 12/14/20 08:44 12/14/20 09:31 Albuterol Sulfate 90 Mcg 8 Gm Inhaler INHALE 4 puff Q3H PRN Administration Shortness of Breath/Wheezing Clonidine HCl 0.2 mg 12/14/20 09:00 12/16/20 08:06 Clonidine Hcl 0.2 Mg Tablet PO 0.2 mg TID JOHN Administration Protocol Enoxaparin Sodium 40 mg 12/14/20 00:15 12/15/20 23:52 Enoxaparin Sodium 40 Mg/0.4 Ml Syringe SUBCUT 40 mg Q24H JOHN Administration Famotidine 20 mg 12/14/20 09:00 12/16/20 08:06 Famotidine 20 Mg Tablet PO 20 mg BID JOHN Administration Fluticasone Propionate 2 spray 12/16/20 09:00 12/16/20 08:12 Fluticasone Propionate Nasal 16 Gm [place] NOSTRIL-B 2 spray DAILY JOHN Administration Fluticasone/Vilanterol 1 puff 04/29/21 08:00 12/16/20 07:54 Fluticasone/Vilanterol 200/25 Blst.W.Dev INHALE Not Given RDAILY JOHN Ceftriaxone Sodium 1 gm/ 50 mls @ 100 mls/hr 12/14/20 00:15 12/16/20 00:28 Sodium Chloride IV Infused Q24H JOHN Infusion Doxycycline Hyclate 100 mg/ 250 mls @ 166.67 mls/hr 12/14/20 18:00 12/16/20 08:07 Sodium Chloride IV Infused Q12H JOHN Infusion Methadone HCl 50 mg 12/15/20 10:00 12/16/20 08:06 Methadone Hcl 1 Mg/0.1 Ml Oral.Conc PO 50 mg DAILY JOHN Administration Methylprednisolone Sodium Succinate 40 mg 12/14/20 00:15 12/16/20 08:06 Methylprednisolone Sod Succ 40 Mg/Ml Vial IVPUSH 40 mg Q8H JOHN Administration Pharmacy Consult 1 each 12/14/20 18:58 Consult Rx Vancomycin Dosing MISCELLANE DAILY PRN Consult order Sodium Chloride 3 ml 12/14/20 08:00 12/16/20 08:06 0.9 % Sodium Chloride Flush 3 Ml Syringe IVFLUSH 3 ml QSHIFT JOHN Administration Tiotropium [place] 1 puff 12/16/20 08:00 12/16/20 07:55 Tiotropium [place] 18 Mcg Cap.W.Dev INHALE Not Given RDAILY JOHN Labs CBC & Chem 7: 12/16/20 05:38 12/15/20 06:19 Microbiology Microbiology Results: Microbiology 12/13/20 22:17 Blood - Venous Blood Culture - Preliminary No growth after 48 hours. 12/13/20 22:05 Blood - Venous Blood Culture - Preliminary No growth after 48 hours. Assessment and Plan (1) Acute hypoxemic respiratory failure: Problem details: Hypoxemia produced by bilateral infiltrates and VQ abnormalities. Being corrected with oxygen supplementation, AND SLOW WEANING DOWN . Status: Acute (2) COPD (chronic obstructive pulmonary disease): Problem details: Acute exacerbation secondary to acute respiratory infection, but stable. tx Breo-[id number] inhalation daily Spiriva 1 inhalation daily Albuterol updraft Q 4-6 hours p.r.n. Prednisone 40 mg daily Status: Acute (3) Pneumonia: Status: Acute Assessment and Plan: 55yo M with COPD, opioid dependence presented with dyspnea, productive cough admitted with sepsis from pneumonia # pneumonia - enterovirus/rhinovirus positive. COVID-19 negative x2. doxycycline + ceftriaxone d#4, Change to PO Doxy and Ceftin tomorro. follow BCx, trend PCT, check Legionella UAg. suspect aspiration. appreciate pulmonology + ID consults # acute hypoxic respiratory failure - supplemental O2, wean as tolerated # suspicious lung masses - will need repeat CT after PNA resolves- appreciate heme/onc consult # COPD exacerbation - IV steroids, prn bronchodilators, change to Prenisone today # opioid dependence with recent heroin use - continue methadone- verified dose # gastritis - continue H2RA # VTE ppx - continue LMWH # dispo - pt is homeless, we will see what CM can come up with
--- NOTE | 2020-12-16 13:35 | PM.PNPUL ---
Subjective Subjective Date of Service: 12/16/20 Principal diagnosis: bilateral pneumonia. Interval history: This gentleman is feeling better today. He is afebrile, has less respiratory distress. Still on oxygen 6 L/minute via [employer]. Still remains quite weak. No nausea or vomiting. No chest pain. Objective Data Labs CBC & Chem 7: 12/16/20 05:38 12/15/20 06:19 Labs: Laboratory Results - last 24 hr 12/14/20 12/16/20 12/16/20 15:37 05:38 05:38 WBC 13.5 H RBC 5.18 Hgb 14.4 Hct 43.6 MCV 84.2 MCH 27.8 MCHC 33.0 RDW 13.9 Plt Count 337 MPV 9.9 Immature Gran % (Auto) 0.8 H Neut % (Auto) 83.5 H Lymph % (Auto) 10.9 L [place] % (Auto) 4.7 Eos % (Auto) 0.0 Baso % (Auto) 0.1 Lymph # (Auto) 1.5 [place] # (Auto) 0.6 Eos # (Auto) 0.0 Baso # (Auto) 0.0 Abs Immat Gran (auto) 0.11 H Absolute Neuts (auto) 11.3 H Absolute Nucleated RBC 0.000 Nucleated RBC % (auto) 0.0 C-Reactive Protein 6.46 H Cryptococcal Ag SEE NOTE Microbiology Microbiology Results: Microbiology 12/13/20 22:17 Blood - Venous Blood Culture - Preliminary No growth after 48 hours. 12/13/20 22:05 Blood - Venous Blood Culture - Preliminary No growth after 48 hours. Review of Systems Review of Systems Yes all other systems are reviewed and are negative Denies nasal congestion and Denies nasal discharge Cardiovascular: Denies chest pain, Denies leg edema and Reports dyspnea (moderate) Respiratory: Reports dyspnea (moderate) and Denies wheezing Gastrointestinal: Denies nausea and Denies vomiting Musculoskeletal: Reports no additional musculoskeletal complaints Reports system reviewed and no additional complaints, except as documented and Reports Abnormal speech present Allergic/Immunologic: Denies wheezing Physical Exam Vital Signs: Vital Signs: Last Vital Signs Temp 97.4 F 12/16/20 11:40 Pulse 60 12/16/20 11:40 Resp 19 12/16/20 11:40 BP 103/57 L 12/16/20 11:40 Pulse Ox 94 12/16/20 11:40 Oxygen Flow Rate 4 12/13/20 21:38 Body Mass Index 23.0 Const: General: comfortable, no acute distress, alert and awake Orientation/consciousness: patient oriented x3 HENMT: Head: Yes normal to inspection General nose exam: No nasal polyps present and No nasal discharge present Face and sinus: Yes sinuses nontender Mouth: oropharynx normal Throat: Yes posterior oropharynx normal Eyes: General: appearance normal, both eyes and all related structures Neck: Neck: Yes normal visual inspection, Yes no lymphadenopathy, Yes trachea midline and Yes no JVD Thyroid: Thyroid normal Chest: Chest palpation & inspection: normal inspection of the chest and normal palpation of entire chest wall Resp: Auscultation: no crackles, no wheezes and diminished lung sounds (distant) Cardio: Palpation: normal PMI Rate: regular rate Rhythm: regular rhythm Heart sounds: no gallops and no murmurs GI: Palpation (GI): Soft to palpation, nontender, No hepatosplenomegaly present and no masses Auscultation: normal bowel sounds Back/Spine/Pelvis: Thoracic/Lumbar Spine: thoracic and lumbar spine normal to inspection Skin: General skin exam: no rashes or lesions noted Neuro: General: patient oriented x3 and no focal motor deficits Cranial nerves: Yes CN's II-XII intact bilaterally Speech: Abnormal speech present Extrem: General: Yes normal to inspection, Yes no clubbing, cyanosis or edema, Yes no calf tenderness and No venous stasis dermatitis Psych: Speech and movement: Normal speech and movement present Assessment and Plan Assessment and plan (1) Pneumonia: Problem details: Bilateral infiltrates, a suggesting COVID-19 infection, but COVID test is negative tx continue Rocephin and doxycycline for antibiotic coverage . Status: Acute (2) COPD (chronic obstructive pulmonary disease): Problem details: Acute exacerbation secondary to acute respiratory infection, but stable. tx Breo-201 inhalation daily Spiriva 1 inhalation daily Albuterol updraft Q 4-6 hours p.r.n. Prednisone 40 mg daily Status: Acute (3) Acute hypoxemic respiratory failure: Problem details: Hypoxemia produced by bilateral infiltrates and VQ abnormalities. Being corrected with oxygen supplementation, still requiring somewhat high O2. Status: Acute Time Spent With Patient Time: Total time spent is greater than 50% in coordination of care (as documented) at patient's floor/unit and/or counseling patient: Time with patient: 15 - 24 minutes
[2020-12-17] VITALS (11 sets, daily range): BP systolic 99–121; BP diastolic 55–77; PULSE 53–66; RESP 18–21; TEMP 36.1–36.6; O2SAT 91–96
[2020-12-17] MEDS: cefTRIAXone sodium 1 GM in 0.9 % Sodium Chloride 50 ML IV (00:16)
[2020-12-17] MEDS: Enoxaparin Sodium 40 MG/0.4 ML SYRINGE SUBCUT (00:17)
[2020-12-17] MEDS: Doxycycline Hyclate 100 MG in 0.9 % Sodium Chloride 250 ML 166.67 MG IV (05:20)
[2020-12-17] MEDS: Fluticasone/Vilanterol 200/25 BLST.W.DEV 1 PUFF INHALE (07:34)
[2020-12-17] MEDS: 0.9 % Sodium Chloride Flush 3 ML SYRINGE IVFLUSH ×2 (08:42→15:43)
[2020-12-17] MEDS: cloNIDine HCL 0.2 MG TABLET PO ×2 (08:43→21:05)
[2020-12-17] MEDS: Famotidine 20 MG TABLET PO ×2 (08:43→21:05)
[2020-12-17] MEDS: predniSONE 20 MG TABLET 40 MG PO (08:44)
[2020-12-17] MEDS: Fluticasone Propionate Nasal 16 GM SPRAY 2 SPRAY NOSTRIL-B (08:46)
--- NOTE | 2020-12-17 11:46 | P.PNPL_ITS ---
Subjective Subjective Date of Service: 12/17/20 Principal diagnosis: bilateral pneumonia. Interval history: FEELING A LITTLE BETTER, AFEBRILE, HE IS STILL MODERATELY SHORT OF BREATH, AND STILL REQUIRING O2 BUT DOWN TO 3 L/MINUTE. DENIES CHEST PAIN, HAS MINIMAL COUGH MOSTLY NONPRODUCTIVE. Objective Data Labs CBC & Chem 7: 12/16/20 05:38 12/15/20 06:19 Microbiology Microbiology Results: Microbiology 12/13/20 22:17 Blood - Venous Blood Culture - Preliminary No growth after 48 hours. 12/13/20 22:05 Blood - Venous Blood Culture - Preliminary No growth after 48 hours. Review of Systems Review of Systems Yes all other systems are reviewed and are negative Reports system reviewed and no additional complaints, except as documented Cardiovascular: Denies chest pain and Reports dyspnea on exertion Respiratory: Reports cough, Reports dyspnea on exertion and Denies wheezing Allergic/Immunologic: Denies wheezing Physical Exam Vital Signs: Vital Signs: Last Vital Signs Temp 97.4 F 12/17/20 07:51 Pulse 56 12/17/20 07:51 Resp 20 12/17/20 07:51 BP 121/77 12/17/20 07:51 Pulse Ox 91 L 12/17/20 07:51 Oxygen Flow Rate 4 12/13/20 21:38 Body Mass Index 23.0 Const: General: comfortable, no acute distress, alert and awake Orientation/consciousness: patient oriented x3 HENMT: Head: Yes normal to inspection General nose exam: No nasal polyps present and No nasal discharge present Face and sinus: Yes sinuses nontender Mouth: oropharynx normal Throat: Yes posterior oropharynx normal Eyes: General: appearance normal, both eyes and all related structures Neck: Neck: Yes normal visual inspection, Yes no lymphadenopathy, Yes trachea midline and Yes no JVD Thyroid: Thyroid normal Chest: Chest palpation & inspection: normal inspection of the chest and normal palpation of entire chest wall Resp: Effort & Inspection: normal respiratory effort Auscultation: crackles (SCATTERED ON THE BACK OF CHEST ) and no wheezes Cardio: Palpation: normal PMI Rate: regular rate Rhythm: regular rhythm Heart sounds: no gallops and no murmurs Peripheral pulses: Peripheral pulses 2+ throughout GI: Palpation (GI): Soft to palpation, Tenderness to palpation present (GI), No hepatosplenomegaly present and Palpable mass present Auscultation: normal bowel sounds Back/Spine/Pelvis: Thoracic/Lumbar Spine: thoracic and lumbar spine normal to inspection Skin: General skin exam: no rashes or lesions noted Neuro: General: patient oriented x3 and no focal motor deficits Cranial ne rves: Yes CN's II-XII intact bilaterally Extrem: General: Yes normal to inspection, Yes no clubbing, cyanosis or edema, Yes no calf tenderness and Yes venous stasis dermatitis Psych: Speech and movement: Normal speech and movement present Assessment and Plan Assessment and plan (1) Pneumonia: Problem details: Bilateral infiltrates, a suggesting COVID-19 infection, but COVID test is negative tx continue Rocephin and doxycycline for antibiotic coverage . Status: Acute (2) Acute hypoxemic respiratory failure: Problem details: Hypoxemia produced by bilateral infiltrates and VQ abnormalities. Being corrected with oxygen supplementation, AND SLOW WEANING DOWN . Status: Acute (3) COPD (chronic obstructive pulmonary disease): Problem details: Acute exacerbation secondary to acute respiratory infection, but stable. tx Breo-201 inhalation daily Spiriva 1 inhalation daily Albuterol updraft Q 4-6 hours p.r.n. Prednisone 40 mg daily Status: Acute Time Spent With Patient Time: Total time spent is greater than 50% in coordination of care (as documented) at patient's floor/unit and/or counseling patient: Time with patient: 15 - 24 minutes
--- NOTE | 2020-12-17 14:24 | MHC.CM.PN ---
Addendum entered by [place] Rojas 12/17/20 16:06: A call received from Pts [employer] C# sustainability project coordinator Shivani Hernandez. She requested DC summarry be faxed to her for coordination of appointmants and transportation. FAX # . This was verified with the Patient. He requests that we fax info to her. Original Note: Male 55 DX PNA Pt continues to require supplemental O2. DP home no services with Family transport. A Home O2 eval may be need prior to DC. CM will follow.
--- NOTE | 2020-12-17 15:34 | P.PNIM_ITS ---
Subjective Subjective Date of Service: 12/17/20 Interval History: pt seen and examined at bedside. He was just walked to the bathroom and developed significant SOB and his oxygen dropped to 70% on 3L. He is now on 6 L sating 88-89% with tachypnea. He is coughing up phlegm, no overnight fever. no chest pain. no abd pain, n/v. no diarrhea or constipation. Physical Exam Vital Signs: Vital Signs: Last Vital Signs Temp 97.0 F 12/17/20 15:26 Pulse 59 12/17/20 15:26 Resp 21 H 12/17/20 15:26 BP 99/67 12/17/20 15:26 Pulse Ox 92 12/17/20 15:26 Oxygen Flow Rate 4 12/13/20 21:38 Body Mass Index 23.0 Const: General: cooperative and no acute distress Orientation/consciousness: patient oriented x3 Eyes: General: appearance normal, both eyes and all related structures Resp: Other: tachypneic Effort & Inspection: normal respiratory effort and Actively coughing Auscultation: clear to auscultation bilaterally Cardio: Rate: regular rate Rhythm: regular rhythm GI: Palpation (GI): Soft to palpation Auscultation: normal bowel sounds Skin: General skin exam: no rashes or lesions noted Neuro: General: patient oriented x3 Cognition (Neuro): normal cognition Extrem: General: Yes normal to inspection and Yes no pedal edema Objective Data Current Medications Generic Name Dose Route Start Last Admin Trade Name Freq PRN Reason Stop Dose Admin Acetaminophen 650 mg 12/14/20 00:11 Acetaminophen 325 Mg Tablet PO Q6H PRN Pain, Mild (Pain Scale 1-3) Albuterol Sulfate 4 puff 12/14/20 08:44 12/14/20 09:31 Albuterol Sulfate 90 Mcg 8 Gm Inhaler INHALE 4 puff Q3H PRN Administration Shortness of Breath/Wheezing Cefuroxime Axet[place] 500 mg 12/17/20 08:30 12/17/20 08:42 Cefuroxime Axetil 500 Mg Tablet PO 500 mg Q12H JOHN Administration Clonidine HCl 0.2 mg 12/14/20 09:00 12/17/20 08:43 Clonidine Hcl 0.2 Mg Tablet PO 0.2 mg TID JOHN Administration Protocol Doxycycline Hyclate 100 mg 12/17/20 08:30 12/17/20 08:43 Doxycycline Hyclate 100 Mg Tablet PO 100 mg Q12H JOHN Administration Enoxaparin Sodium 40 mg 12/14/20 00:15 12/17/20 00:17 Enoxaparin Sodium 40 Mg/0.4 Ml Syringe SUBCUT 40 mg Q24H JOHN Administration Famotidine 20 mg 12/14/20 09:00 12/17/20 08:43 Famotidine 20 Mg Tablet PO 20 mg BID JOHN Administration Fluticasone Propionate 2 spray 12/16/20 09:00 12/17/20 08:46 Fluticasone Propionate Nasal 16 Gm [place] NOSTRIL-B 2 spray DAILY JOHN Administration Fluticasone/Vilanterol 1 puff 12/16/20 08:00 12/17/20 07:34 Fluticasone/Vilanterol 200/25 Blst.W.Dev INHALE 1 puff RDAILY JOHN Administration Methadone HCl 50 mg 12/15/20 10:00 12/17/20 10:04 Methadone Hcl 1 Mg/0.1 Ml Oral.Conc PO 50 mg DAILY JOHN Administration Pharmacy Consult 1 each 12/14/20 18:58 Consult Rx Vancomycin Dosing MISCELLANE DAILY PRN Consult order Prednisone 40 mg 12/17/20 09:00 12/17/20 08:44 Prednisone 20 Mg Tablet PO 40 mg DAILY JOHN Administration Sodium Chloride 3 ml 12/14/20 08:00 12/17/20 08:42 0.9 % Sodium Chloride Flush 3 Ml Syringe IVFLUSH 3 ml QSHIFT JOHN Administration Tiotropium [place] 1 puff 12/16/20 08:00 12/17/20 07:34 Tiotropium [place] 18 Mcg Cap.W.Dev INHALE 1 puff RDAILY JOHN Administration Labs CBC & Chem 7: 12/16/20 05:38 12/15/20 06:19 Microbiology Microbiology Results: Microbiology 12/13/20 22:17 Blood - Venous Blood Culture - Preliminary No growth after 48 hours. 12/13/20 22:05 Blood - Venous Blood Culture - Preliminary No growth after 48 hours. Assessment and Plan (1) Pneumonia: Problem details: Bilateral infiltrates, a suggesting COVID-19 infection, but COVID test is negative tx continue Rocephin and doxycycline for antibiotic coverage . Status: Acute (2) Acute hypoxemic respiratory failure: Problem details: Hypoxemia produced by bilateral infiltrates and VQ abnormalities. Being corrected with oxygen supplementation, AND SLOW WEANING DOWN . Status: Acute (3) COPD (chronic obstructive pulmonary disease): Problem details: Acute exacerbation secondary to acute respiratory infection, but stable. tx Breo-201 inhalation daily Spiriva 1 inhalation daily Albuterol updraft Q 4-6 hours p.r.n. Prednisone 40 mg daily Status: Acute Assessment and Plan: hospital d#4 55yo M with COPD, opioid dependence presented with dyspnea, productive cough admitted with sepsis from pneumonia # pneumonia - enterovirus/rhinovirus positive. COVID-19 negative. HIV -ve - Was on doxt and ceftriaxone x4 days. - Will switch him to po doxycycline + Ceftin - Bxc -ve to date - Check Legionella UAg. - suspect aspiration. appreciate pulmonology + ID consults # acute hypoxic respiratory failure - 2/2 Pna - continue supplemental O2, wean as tolerated # suspicious lung masses - Has been evaluated by Heme/Onc - will need repeat CT after PNA resolves to evaluate for a better view # COPD exacerbation - continue IV steroids, prn bronchodilators # opioid dependence with recent heroin use - continue methadone- verified dose # gastritis - continue H2RA # VTE ppx - continue LMWH # dispo - pt is homeless, care management working on [facility]. Pt does not qualify for VNA
[2020-12-18] VITALS (12 sets, daily range): BP systolic 90–126; BP diastolic 56–64; PULSE 52–73; RESP 18–20; TEMP 36.3–36.6; O2SAT 91–96
[2020-12-18] MEDS: Enoxaparin Sodium 40 MG/0.4 ML SYRINGE SUBCUT (02:16)
[2020-12-18] MEDS: 0.9 % Sodium Chloride Flush 3 ML SYRINGE IVFLUSH ×4 (02:16→20:29)
[2020-12-18] MEDS: Fluticasone/Vilanterol 200/25 BLST.W.DEV 1 PUFF INHALE (07:49)
[2020-12-18] MEDS: cloNIDine HCL 0.2 MG TABLET PO ×3 (08:50→20:27)
[2020-12-18] MEDS: predniSONE 20 MG TABLET 40 MG PO (08:50)
[2020-12-18] MEDS: Famotidine 20 MG TABLET PO ×2 (08:50→20:27)
[2020-12-18] MEDS: Fluticasone Propionate Nasal 16 GM SPRAY 2 SPRAY NOSTRIL-B (08:51)
--- NOTE | 2020-12-18 12:24 | P.PNIM_ITS ---
Subjective Subjective Date of Service: 12/18/20 Interval History: Pneumonia f/u, oxygenation is better Presently at 93on 2 liters Review of Systems Gen: no fever Resp:+ sob, no cough CV: no chest, no MORALES, no leg edema GI: No n/v, no abd pain Neuro: No confusion Physical Exam Vital Signs: Vital Signs: Last Vital Signs Temp 97.6 F 12/18/20 11:06 Pulse 73 12/18/20 11:06 Resp 18 12/18/20 11:06 BP 102/64 12/18/20 11:06 Pulse Ox 93 12/18/20 11:06 Oxygen Flow Rate 4 12/13/20 21:38 Body Mass Index 23.0 Const: Other: Gen: in no acute distress HEENT: sclera anicteric, moist mucus membranes Neck: supple Lungs: diminished bilaterally, rhonchi Heart: regular rate and rhythm, no murmurs Abd: soft, non-tender, non-distended Ext: no edema Skin: warm/well-perfused Neuro: alert and oriented x3, no focal findings Psych: appropriate affect Objective Data Current Medications Generic Name Dose Route Start Last Admin Trade Name Freq PRN Reason Stop Dose Admin Acetaminophen 650 mg 12/14/20 00:11 Acetaminophen 325 Mg Tablet PO Q6H PRN Pain, Mild (Pain Scale 1-3) Albuterol Sulfate 4 puff 12/14/20 08:44 12/14/20 09:31 Albuterol Sulfate 90 Mcg 8 Gm Inhaler INHALE 4 puff Q3H PRN Administration Shortness of Breath/Wheezing Cefuroxime Axetil 500 mg 12/17/20 08:30 12/18/20 08:50 Cefuroxime Axetil 500 Mg Tablet PO 500 mg Q12H JOHN Administration Clonidine HCl 0.2 mg 12/14/20 09:00 12/18/20 08:50 Clonidine Hcl 0.2 Mg Tablet PO 0.2 mg TID JOHN Administration Protocol Doxycycline Hyclate 100 mg 12/17/20 08:30 12/18/20 08:50 Doxycycline Hyclate 100 Mg Tablet PO 100 mg Q12H JOHN Administration Enoxaparin Sodium 40 mg 12/14/20 00:15 12/18/20 02:16 Enoxaparin Sodium 40 Mg/0.4 Ml Syringe SUBCUT 40 mg Q24H JOHN Administration Famotidine 20 mg 12/14/20 09:00 12/18/20 08:50 Famotidine 20 Mg Tablet PO 20 mg BID JOHN Administration Fluticasone Propionate 2 spray 12/16/20 09:00 12/18/20 08:51 Fluticasone Propionate Nasal 16 Gm [place] NOSTRIL-B 2 spray DAILY JOHN Administration Fluticasone/Vilanterol 1 puff 12/16/20 08:00 12/18/20 07:49 Fluticasone/Vilanterol 200/25 Blst.W.Dev INHALE 1 puff RDAILY JOHN Administration Methadone HCl 50 mg 12/15/20 10:00 12/18/20 08:50 Methadone Hcl 1 Mg/0.1 Ml Oral.Conc PO 50 mg DAILY JOHN Administration Pharmacy Consult 1 each 12/14/20 18:58 Consult Rx Vancomycin Dosing MISCELLANE DAILY PRN Consult order Prednisone 40 mg 12/17/20 09:00 12/18/20 08:50 Prednisone 20 Mg Tablet PO 40 mg DAILY JOHN Administration Sodium Chloride 3 ml 12/14/20 08:00 12/18/20 08:51 0.9 % Sodium Chloride Flush 3 Ml Syringe IVFLUSH 3 ml QSHIFT JOHN Administration Tiotropium [place] 1 puff 12/16/20 08:00 12/18/20 07:49 Tiotropium [place] 18 Mcg Cap.W.Dev INHALE 1 puff RDAILY JOHN Administration Labs CBC & Chem 7: 12/16/20 05:38 12/15/20 06:19 Microbiology Microbiology Results: Microbiology 12/13/20 22:17 Blood - Venous Blood Culture - Preliminary No growth after 48 hours. 12/13/20 22:05 Blood - Venous Blood Culture - Preliminary No growth after 48 hours. Assessment and Plan (1) Acute hypoxemic respiratory failure: Status: Acute (2) COPD (chronic obstructive pulmonary disease): Status: Acute (3) Pneumonia: Status: Acute Assessment and Plan: 55yo M with COPD, opioid dependence presented with dyspnea, productive cough admitted with sepsis from pneumonia # pneumonia - enterovirus/rhinovirus positive. COVID-19 negative x2. doxycycline + ceftriaxone d#4, Change to PO Doxy and Ceft. follow BCx, trend PCT, check Legionella UAg. suspect aspiration. appreciate pulmonology + ID consults # acute hypoxic respiratory failure - supplemental O2, wean as tolerated # suspicious lung masses - will need repeat CT after PNA resolves- appreciate heme/onc consult # COPD exacerbation - was on IV steroid, Prednisone 40 daily # opioid dependence with recent heroin use - continue methadone- verified dose # gastritis - continue H2RA # VTE ppx - continue LMWH # dispo - pt is homeless, we will see what CM can come up with at time of discharge
[2020-12-19] VITALS (8 sets, daily range): BP systolic 99–139; BP diastolic 55–79; PULSE 51–71; RESP 12–20; TEMP 36.2–36.7; O2SAT 91–96
[2020-12-19] MEDS: Fluticasone/Vilanterol 200/25 BLST.W.DEV 1 PUFF INHALE (07:44)
[2020-12-19] MEDS: cloNIDine HCL 0.2 MG TABLET PO ×3 (08:50→21:20)
[2020-12-19] MEDS: Famotidine 20 MG TABLET PO ×2 (08:50→21:20)
[2020-12-19] MEDS: 0.9 % Sodium Chloride Flush 3 ML SYRINGE IVFLUSH ×3 (08:51→23:27)
[2020-12-19] MEDS: predniSONE 20 MG TABLET 40 MG PO (08:51)
[2020-12-19] MEDS: Fluticasone Propionate Nasal 16 GM SPRAY 2 SPRAY NOSTRIL-B (11:38)
--- NOTE | 2020-12-19 12:18 | P.PNIM_ITS ---
Subjective Subjective Date of Service: 12/19/20 Interval History: Pneumonia f/u, oxygenation is better Presently at 93on 2 liters still Review of Systems Gen: no fever Resp:+ sob, no cough CV: no chest, no MORALES, no leg edema GI: No n/v, no abd pain Neuro: No confusion Physical Exam Vital Signs: Vital Signs: Last Vital Signs Temp 97.5 F 12/19/20 08:00 Pulse 64 12/19/20 08:00 Resp 18 12/19/20 08:00 BP 109/71 12/19/20 08:00 Pulse Ox 93 12/19/20 08:00 Oxygen Flow Rate 4 12/13/20 21:38 Body Mass Index 23.0 Const: Other: Gen: in no acute distress HEENT: sclera anicteric, moist mucus membranes Neck: supple Lungs: diminished bilaterally, rhonchi Heart: regular rate and rhythm, no murmurs Abd: soft, non-tender, non-distended Ext: no edema Skin: warm/well-perfused Neuro: alert and oriented x3, no focal findings Psych: appropriate affect Objective Data Current Medications Generic Name Dose Route Start Last Admin Trade Name Freq PRN Reason Stop Dose Admin Acetaminophen 650 mg 12/14/20 00:11 Acetaminophen 325 Mg Tablet PO Q6H PRN Pain, Mild (Pain Scale 1-3) Albuterol Sulfate 4 puff 12/14/20 08:44 12/14/20 09:31 Albuterol Sulfate 90 Mcg 8 Gm Inhaler INHALE 4 puff Q3H PRN Administration Shortness of Breath/Wheezing Cefuroxime Axetil 500 mg 12/17/20 08:30 12/19/20 08:50 Cefuroxime Axetil 500 Mg Tablet PO 500 mg Q12H JOHN Administration Clonidine HCl 0.2 mg 12/14/20 09:00 12/19/20 08:50 Clonidine Hcl 0.2 Mg Tablet PO 0.2 mg TID JOHN Administration Protocol Doxycycline Hyclate 100 mg 12/17/20 08:30 12/19/20 08:50 Doxycycline Hyclate 100 Mg Tablet PO 100 mg Q12H JOHN Administration Enoxaparin Sodium 40 mg 12/14/20 00:15 12/19/20 01:37 Enoxaparin Sodium 40 Mg/0.4 Ml Syringe SUBCUT Not Given Q24H JOHN Famotidine 20 mg 12/14/20 09:00 12/19/20 08:50 Famotidine 20 Mg Tablet PO 20 mg BID JOHN Administration Fluticasone Propionate 2 spray 12/16/20 09:00 12/19/20 11:38 Fluticasone Propionate Nasal 16 Gm [place] NOSTRIL-B 2 spray DAILY JOHN Administration Fluticasone/Vilanterol 1 puff 12/16/20 08:00 12/19/20 07:44 Fluticasone/Vilanterol 200/25 Blst.W.Dev INHALE 1 puff RDAILY JOHN Administration Methadone HCl 50 mg 12/15/20 10:00 12/19/20 08:50 Methadone Hcl 1 Mg/0.1 Ml Oral.Conc PO 50 mg DAILY JOHN Administration Pharmacy Consult 1 each 12/14/20 18:58 Consult Rx Vancomycin Dosing MISCELLANE DAILY PRN Consult order Prednisone 40 mg 12/17/20 09:00 12/19/20 08:51 Prednisone 20 Mg Tablet PO 40 mg DAILY JOHN Administration Sodium Chloride 3 ml 12/14/20 08:00 12/19/20 08:51 0.9 % Sodium Chloride Flush 3 Ml Syringe IVFLUSH 3 ml QSHIFT JOHN Administration Tiotropium [place] 1 puff 12/16/20 08:00 12/19/20 07:44 Tiotropium [place] 18 Mcg Cap.W.Dev INHALE 1 puff RDAILY JOHN Administration Labs CBC & Chem 7: 12/16/20 05:38 12/15/20 06:19 Microbiology Microbiology Results: Microbiology 12/13/20 22:17 Blood - Venous Blood Culture - Final No growth after 5 days. 12/13/20 22:05 Blood - Venous Blood Culture - Final No growth after 5 days. Assessment and Plan (1) Acute hypoxemic respiratory failure: Status: Acute (2) COPD (chronic obstructive pulmonary disease): Status: Acute (3) Pneumonia: Status: Acute Assessment and Plan: 55yo M with COPD, opioid dependence presented with dyspnea, productive cough admitted with sepsis from pneumonia # pneumonia - enterovirus/rhinovirus positive. COVID-19 negative x2. doxycycline + ceftriaxone d#4, Change to PO Doxy and Ceft. follow BCx, trend PCT, check Legionella UAg. suspect aspiration. appreciate pulmonology + ID consults # acute hypoxic respiratory failure - supplemental O2, wean as tolerated # suspicious lung masses - will need repeat CT after PNA resolves- appreciate heme/onc consult # COPD exacerbation - was on IV steroid, Prednisone 40 daily # opioid dependence with recent heroin use - continue methadone- verified dose # gastritis - continue H2RA # VTE ppx - continue LMWH # dispo - pt is homeless, we will see what CM can come up with at time of discharge
[2020-12-19] MEDS: Enoxaparin Sodium 40 MG/0.4 ML SYRINGE SUBCUT (23:25)
[2020-12-20] VITALS: PULSE 56
[2020-12-20 04:00] VITALS: BP 99/54; PULSE 55; RESP 18; TEMP 36.6; O2SAT 92
[2020-12-20] MEDS: 0.9 % Sodium Chloride Flush 3 ML SYRINGE IVFLUSH (07:14)
[2020-12-20] MEDS: Famotidine 20 MG TABLET PO (07:15)
[2020-12-20] MEDS: cloNIDine HCL 0.2 MG TABLET PO (07:15)
[2020-12-20] MEDS: predniSONE 20 MG TABLET 40 MG PO (07:15)
[2020-12-20] MEDS: Fluticasone Propionate Nasal 16 GM SPRAY 2 SPRAY NOSTRIL-B (07:15)
[2020-12-20 07:22] VITALS: PULSE 60
[2020-12-20] MEDS: Fluticasone/Vilanterol 200/25 BLST.W.DEV 1 PUFF INHALE (07:22)
[2020-12-20 07:24] VITALS: PULSE 59; O2SAT 95
[2020-12-20 07:54] VITALS: BP 98/56; PULSE 59; RESP 17; TEMP 36.6; O2SAT 88
--- NOTE | 2020-12-20 10:23 | PM.DS ---
DS: Providers Provider Date of Service: 12/21/20 Date of admission: 12/14/20 00:11 Primary care physician: Unknown Physician Consults: 12/14/20 00:13 Consult to Pulmonology Routine Consulting Provider: Joseline Aiken Reason for consultation: [email or web address] 12/14/20 00:14 Consult to Infectious Diseases Routine Consulting Provider: Karen Lucas Reason for consultation: PNA;?covid; rapid negative. 12/14/20 01:59 Consult to Hematology / Oncology Routine Consulting Provider: Chey Dyson Reason for consultation: Lung masses 12/14/20 16:44 Addiction Medicine Routine Consulting Provider: Samra Muñiz Reason for consultation: opioid use disorder; recent heroin use; on methadone DS: Diagnosis Discharge Diagnosis (1) Lung mass: Status: Acute DS: Medications Discharge Medications Home Medications: Home Medications Medication Instructions Recorded Confirmed albuterol sulfate 2 puff PO QID 12/14/20 12/14/20 clonidine HCl 1 tab PO TID PRN 12/14/20 12/14/20 fluticasone propion-salmeterol 1 puff INHALATION BID 12/14/20 12/14/20 [Wixela Inhub] fluticasone propionate 2 spray INTRANASAL DAILY 12/14/20 12/14/20 ipratropium-albuterol [Combivent 1 puff INHALATION QID PRN 12/14/20 12/14/20 Respimat] umeclidinium [Incruse Ellipta] 1 puff INHALATION DAILY 12/14/20 12/14/20 methadone 48 mg PO DAILY 12/15/20 12/15/20 DS: Summary Hospital Course Hospital Course: Chief Complaint: Shortness of breath 55-year-old male with a past medical history of COPD, opiate dependence on methadone presented to the hospital with a chief complaint of shortness of breath. Patient mentions that over the past 3 days he has been having shortness of breath with has been gradually worsening, associated with cough with greenish sputum. Denies any fevers but noted chills. Yesterday he went to the ER at [facility] and was given prednisone after he took the prednisone last night he had an episode of vomiting and abdominal discomfort. Currently denies any nausea vomiting or abdominal pain. Denies any chest pain palpitations lightheadedness or dizziness. Denies any COVID exposures. Review of all other systems is negative except mentioned above ER course: For ER team patient was mildly hypoxic and was placed on supplemental oxygen. Breathing comfortably. Chest x-ray showed findings consistent with possible COVID pneumonia. Admitted to the hospital for further management. Hospital course: # pneumonia-- initially there was concern that he could possibly have a COVID pneumonia due to the x-ray pattern however he has had multiple COVID testing all have been negative. His respiratory panel however this showed that he has enterovirus /rhinovirus which is likely the cause of this. An underlying bacterial pneumonia is not excluded and as such the patient has been treated with doxycycline and ceftriaxone intravenously and once he improved this was switched to oral doxycycline and Ceftin. He has been evaluated by the respiratory service and all recommended to continue the antibiotics and also prednisone which at this point would be taper or over all over time. He is to follow up with the pulmonology service here at [facility]. He is discouraged to smoke and he will have a repeat CT scan which will be done upon completion of the antibiotics. Acute hypoxic respiratory failure likely due to a combination of COPD exacerbation pneumonia as stated above. Patient has been treated with bronchodilators and steroid. He will be discharged with prednisone taper. Again to follow up with pulmonology on outpatient basis. He has been weaned off oxygen. # suspicious lung masses-- he was evaluated by Hematology-Oncology service and is recommended to have a repeat CT scan once he has completed the antibiotics for treatment for pneumonia. # opioid dependence with recent heroin use - continue methadone Program disposition: The patient has been living at a motel and will be returning there. Time Spent with Patient Time attestation: Total time spent providing and/or coordinating discharge services: Discharge coordination time: Greater than 30 minutes Physical Exam Vital Signs: Vital Signs: Last Vital Signs Temp 97.8 F 12/20/20 07:54 Pulse 59 12/20/20 07:54 Resp 17 12/20/20 07:54 BP 98/56 L 12/20/20 07:54 Pulse Ox 88 L 12/20/20 07:54 Oxygen Flow Rate 4 12/13/20 21:38 Body Mass Index 23.0 General: AO X 3, no acute distress Resp: CTA bilateral CVS: S1,S2,RRR GI: +BS, NT, no distention Skin: No rash Neuro: motor grossly intact Psych: appropriate affect Discharge Plan Discharge Anticipated Discharge Date/Time: 12/20/20 10:18 Patient Disposition: Home, Self-Care Discharge Diagnosis: pneumonia, COPD, acute respiratory failure that has resolved. Referrals: Joseline Aiken MD [Physician] - 1 Week (Hospital follow-up) Chey Dyson MD [Physician] - 1 Week (Follow-up on the lung mass seen in the hospital) Physician,Unknown [Primary Care Provider] - 1 Week Discharge Medications: New cefuroxime axetil 500 mg Tablet 500 mg PO Q12H Qty: 8 RF: 0 doxycycline hyclate 100 mg Tablet 100 mg PO Q12H Qty: 8 RF: 0 prednisone 20 mg tablet See Taper mg PO DAILY Qty: 20 RF: 0 Continued clonidine HCl 0.2 mg tablet 1 tab PO TID PRN (Reason: insomnia) RF: 0 fluticasone propion-salmeterol [Wixela Inhub] 500-50 mcg/dose blister with device 1 puff inhalation BID RF: 0 albuterol sulfate 90 mcg/actuation HFA aerosol inhaler 2 puff PO QID RF: 0 fluticasone propionate 50 mcg/actuation spray,suspension 2 spray intranasal DAILY RF: 0 Combivent Respimat 20-100 mcg/actuation mist 1 puff inhalation QID PRN (Reason: dyspnea) RF: 0 Incruse Ellipta 62.5 mcg/actuation blister with device 1 puff inhalation DAILY RF: 0 methadone 10 mg/mL Concentrate 48 mg PO DAILY RF: 0 Discharge Orders: Discharge Order (Routine); Ordered 12/20/20 Ordered By: Daniel Agarwal Diet: advance to usual diet Activity on Discharge: No Running or jogging Stand Alone Forms: Patient Portal Discharge page Other Ambulatory Orders: CT chest wo con (Routine) Timeframe: 2 Weeks Facility: [facility] - Location: CT Scan Ordered By: Daniel Agarwal Care Plan Goals: Full recovery from pneumonia and a COPD. Health Concerns: Respiratory failure related to COPD and pneumonia. Plan of Treatment: Take doxycycline and cefuroxime as directed, take prednisone as directed. Follow-up with Dr. Aiken in the Pulmonary Clinic at [facility]. Assessment: Acute hypoxic respiratory failure due to pneumonia and COPD and has significantly improved but needs further treatment with antibiotics and the steroids. You will need a repeat CT scan off upon completion of the antibiotics because of a lung mass that was identified on the previous x-ray Discharge Date/Time: 12/20/20 14:20
--- NOTE | 2020-12-20 10:29 | HO.PM.IMPN ---
Subjective Subjective Date of Service: 12/20/20 Interval History: Pneumonia f/u, oxygenation is better His oxygen saturation has been good on in a rheumatic better reportedly is not ADA. Will reassess. He otherwise feels much better. Review of Systems Gen: no fever Resp:+ sob, no cough CV: no chest, no MORALES, no leg edema GI: No n/v, no abd pain Neuro: No confusion Physical Exam Vital Signs: Vital Signs: Last Vital Signs Temp 97.8 F 12/20/20 07:54 Pulse 59 12/20/20 07:54 Resp 17 12/20/20 07:54 BP 98/56 L 12/20/20 07:54 Pulse Ox 88 L 12/20/20 07:54 Oxygen Flow Rate 4 12/13/20 21:38 Body Mass Index 23.0 Const: Other: Gen: in no acute distress HEENT: sclera anicteric, moist mucus membranes Neck: supple Lungs: diminished bilaterally, rhonchi Heart: regular rate and rhythm, no murmurs Abd: soft, non-tender, non-distended Ext: no edema Skin: warm/well-perfused Neuro: alert and oriented x3, no focal findings Psych: appropriate affect Objective Data Current Medications Generic Name Dose Route Start Last Admin Trade Name Freq PRN Reason Stop Dose Admin Acetaminophen 650 mg 12/14/20 00:11 Acetaminophen 325 Mg Tablet PO Q6H PRN Pain, Mild (Pain Scale 1-3) Albuterol Sulfate 4 puff 12/14/20 08:44 12/14/20 09:31 Albuterol Sulfate 90 Mcg 8 Gm Inhaler INHALE 4 puff Q3H PRN Administration Shortness of Breath/Wheezing Cefuroxime Axetil 500 mg 12/17/20 08:30 12/20/20 07:15 Cefuroxime Axetil 500 Mg Tablet PO 500 mg Q12H JOHN Administration Clonidine HCl 0.2 mg 12/14/20 09:00 12/20/20 07:15 Clonidine Hcl 0.2 Mg Tablet PO 0.2 mg TID JOHN Administration Protocol Doxycycline Hyclate 100 mg 12/17/20 08:30 12/20/20 07:15 Doxycycline Hyclate 100 Mg Tablet PO 100 mg Q12H JOHN Administration Enoxaparin Sodium 40 mg 12/14/20 00:15 12/19/20 23:25 Enoxaparin Sodium 40 Mg/0.4 Ml Syringe SUBCUT 40 mg Q24H JOHN Administration Famotidine 20 mg 12/14/20 09:00 12/20/20 07:15 Famotidine 20 Mg Tablet PO 20 mg BID JOHN Administration Fluticasone Propionate 2 spray 12/16/20 09:00 12/20/20 07:15 Fluticasone Propionate Nasal 16 Gm [place] NOSTRIL-B 2 spray DAILY JOHN Administration Fluticasone/Vilanterol 1 puff 12/16/20 08:00 12/20/20 07:22 Fluticasone/Vilanterol 200/25 Blst.W.Dev INHALE 1 puff RDAILY JOHN Administration Methadone HCl 50 mg 12/15/20 10:00 12/20/20 07:14 Methadone Hcl 1 Mg/0.1 Ml Oral.Conc PO 50 mg DAILY JOHN Administration Pharmacy Consult 1 each 12/14/20 18:58 Consult Rx Vancomycin Dosing MISCELLANE DAILY PRN Consult order Prednisone 40 mg 12/17/20 09:00 12/20/20 07:15 Prednisone 20 Mg Tablet PO 40 mg DAILY JOHN Administration Sodium Chloride 3 ml 12/14/20 08:00 12/20/20 07:14 0.9 % Sodium Chloride Flush 3 Ml Syringe IVFLUSH 3 ml QSHIFT JOHN Administration Tiotropium [place] 1 puff 12/16/20 08:00 12/20/20 07:22 Tiotropium [place] 18 Mcg Cap.W.Dev INHALE 1 puff RDAILY JOHN Administration Labs CBC & Chem 7: 12/16/20 05:38 12/15/20 06:19 Microbiology Microbiology Results: Microbiology 12/13/20 22:17 Blood - Venous Blood Culture - Final No growth after 5 days. 12/13/20 22:05 Blood - Venous Blood Culture - Final No growth after 5 days. Assessment and Plan (1) Lung mass: Status: Acute Assessment and Plan: 55yo M with COPD, opioid dependence presented with dyspnea, productive cough admitted with sepsis from pneumonia # pneumonia - enterovirus/rhinovirus positive. COVID-19 negative x2. doxycycline + ceftriaxone d#4, Changed to PO Doxy and Ceft. follow BCx negsuspect aspiration. appreciate pulmonology + ID consults # acute hypoxic respiratory failure - supplemental O2, wean as tolerated. If hypoxia persists that he will need oxygen id evaluation for home. # suspicious lung masses - will need repeat CT after PNA resolves- appreciate heme/onc consult # COPD exacerbation - was on IV steroid, Prednisone 40 daily, taper upon discharge # opioid dependence with recent heroin use - continue methadone- verified dose # VTE ppx - continue LMWH # dispo - pt is homeless, he has been living at a motel and will be returning there.
[2020-12-20 11:22] LABS: COVID-19 Test Negative (Negative)
[2020-12-20 12:00] VITALS: BP 97/53; RESP 18; TEMP 36.6; O2SAT 92
--- NOTE | 2020-12-20 12:08 | MHC.CM.PN ---
DP Male 55 DX PNA is discharged today. He will go back to the [facility] via shuttle 2:30pm. Transport has been booked by this CM. The Patient has been given the voucher for the shuttle.
== END 2020-12-20 14:20 | disposition home or self-care (01) | DRG 140 ==
LOC: HO.ED 12-14 00:01 → HO.EDOVER 12-14 00:24 → HO.IMC 12-14 16:38
PROVIDERS: Family Medicine; Internal Medicine; Admitting Provider Hospitalist; Emergency Provider Student in an Organized Health Care Education/Training Program; Visit Provider Internal Medicine
DX: J44.0 Chronic obstructive pulmonary disease with (acute) lower respiratory infection (principal); J96.01 Acute respiratory failure with hypoxia; J12.89 Other viral pneumonia; F11.20 Opioid dependence, uncomplicated; J44.1 Chronic obstructive pulmonary disease with (acute) exacerbation; K29.70 Gastritis, unspecified, without bleeding; Z59.0 Homelessness; R91.8 Other nonspecific abnormal finding of lung field; F17.210 Nicotine dependence, cigarettes, uncomplicated; B97.10 Unspecified enterovirus as the cause of diseases classified elsewhere; Z20.822 Contact with and (suspected) exposure to COVID-19; Z71.6 Tobacco abuse counseling; Z79.51 Long term (current) use of inhaled steroids; Z79.899 Other long term (current) drug therapy
CPT/HCPCS: 0241U; 36415; 36600; 71045; 71275; 80048; 80053; 80307; 80320; 81001; 82728; 83605; 83615; 83880; 84145; 84484; 85025; 85379; 85610; 86140; 86403; 86704; 86706; 86803; 87040; 87340; 87389; 87633; 87635; 87640; 87641; 93005; 96365; 99285; J0696; J1650; J2543; J2920; J3370; Q9967

== ENCOUNTER 2020-12-24 10:38 | Emergency (ER) | payer MEDICAID, SELFPAY ==
--- NOTE | 2020-12-24 10:45 | ED.OVERDOSE ---
HPI - Overdose General Chief Complaint: ETOH/Substance Use Stated Complaint: HEROIN USE, 2MG NARCAN Time Seen by Provider: 12/24/20 10:45 Source: patient and EMS Mode of arrival: EMS Limitations: no limitations History of Present Illness HPI Narrative: given 2mg enroute [place] narcan by EMS, kept falling asleep and sats dropped a little bit complaint: accidental overdose Onset (ago): minute(s) Timing confirmed by: other (staff at [facility]) Context: Accidental Overdose: wanted to get high Treatments Prior to Arrival: narcan (2mg IN narcan) Related Data Home Medications Medication Instructions Recorded Confirmed Combivent Respimat 1 puff INHALATION QID PRN 12/14/20 12/14/20 Incruse Ellipta 1 puff INHALATION DAILY 12/14/20 12/14/20 albuterol sulfate 2 puff PO QID 12/14/20 12/14/20 clonidine HCl 1 tab PO TID PRN 12/14/20 12/14/20 fluticasone propion-salmeterol 1 puff INHALATION BID 12/14/20 12/14/20 [Wixela Inhub] fluticasone propionate 2 spray INTRANASAL DAILY 12/14/20 12/14/20 methadone 48 mg PO DAILY 12/15/20 12/15/20 Previous Rx's Medication Instructions Recorded cefuroxime axetil 500 mg PO Q12H #8 tab 12/20/20 doxycycline hyclate 100 mg PO Q12H #8 tab 12/20/20 prednisone See Taper PO DAILY #20 tab 12/20/20 Allergies Allergy/AdvReac Type Severity Reaction Status Date / Time No Known Allergies Allergy Verified 12/13/20 21:50 Review of Systems Review of Systems: Constitutional : No Fever, No Chills, Cardiovascular : No Chest Pain, No SOB Respiratory : No Dyspnea Gastrointestinal : No abdominal pain Musculoskeletal : No Joint Swelling Skin : No rash, no skin laceration Neuro : No Weakness, No Numbness Psych : No SI/HI All other systems reviewed and are negative PMFSH Past Medical History Attestation statement: The following information was validated with the patient. Medical History COPD (chronic obstructive pulmonary disease) COVID-19 determined by clinical diagnostic criteria Opiate abuse, continuous Pneumonia Social History Social History Household Members: Significant Other Housing: House Alcohol intake: never Smoking Status: Light tobacco smoker Tobacco Type: Cigarette Substance Use Type: Heroin Advance Directives: No Advance Directives Information Provided: No service: No Current occupational status: disabled Physical Exam Vital Signs: Vital Signs: Last Vital Signs Temp 98.4 F 12/24/20 10:50 Pulse 92 12/24/20 10:50 Resp 18 12/24/20 10:50 BP 133/79 12/24/20 10:50 Pulse Ox 93 12/24/20 10:50 Body Mass Index 21.5 Appearance: Alert. Oriented X3. No acute distress. Eyes: Pupils equal, round and reactive to light. ENT: Pharynx normal. Neck: Normal inspection. Neck supple. CVS: Normal heart rate and rhythm. Pulses normal. Respiratory: No respiratory distress. Breath sounds normal. Abdomen: Soft and nontender. Skin: Skin warm and dry. Normal skin color. Normal skin turgor. Extremities: No lower extremity edema. No calf ttp Neuro: Oriented X 3. No motor deficit. No sensory deficit. Course Course Course Narrative: walked out of ED - cannot section the patient at this time, steady gait, clinically sober MDM - Overdose MDM Narrative Medical decision making narrative: 55 yo male with recent pneumonia and COPD admission - comes in after using 1 bag of heroin at [facility] he comes in after unsteady gait, no trauma, no SI, given 2mg [place] narcan by EMS as he was nodding off en route and his saturations dropped, responded well, agrees to stay in ED for 45 minutes only for observation, denies need for detox, has narcan at home he states Discharge Plan Discharge Clinical Impression: Heroin overdose Qualifiers: Encounter type: initial encounter Injury intent: accidental or unintentional Qualified Code(s): T40.1X1A - Poisoning by heroin, accidental (unintentional), initial encounter Patient Disposition: Home, Self-Care Instructions: Narcotic Use Disorder (ED) Additional Instructions: return to ED for any worsening symptoms or concerns Prescriptions: No Action clonidine HCl 0.2 mg tablet 1 tab PO TID PRN (Reason: insomnia) RF: 0 fluticasone propion-salmeterol [Wixela Inhub] 500-50 mcg/dose blister with device 1 puff inhalation BID RF: 0 albuterol sulfate 90 mcg/actuation HFA aerosol inhaler 2 puff PO QID RF: 0 fluticasone propionate 50 mcg/actuation spray,suspension 2 spray intranasal DAILY RF: 0 Combivent Respimat 20-100 mcg/actuation mist 1 puff inhalation QID PRN (Reason: dyspnea) RF: 0 Incruse Ellipta 62.5 mcg/actuation blister with device 1 puff inhalation DAILY RF: 0 methadone 10 mg/mL Concentrate 48 mg PO DAILY RF: 0 cefuroxime axetil 500 mg Tablet 500 mg PO Q12H Qty: 8 RF: 0 doxycycline hyclate 100 mg Tablet 100 mg PO Q12H Qty: 8 RF: 0 prednisone 20 mg tablet See Taper mg PO DAILY Qty: 20 RF: 0
[2020-12-24 10:50] VITALS: BP 133/79; PULSE 92; RESP 18; TEMP 36.9; O2SAT 93; BMI 21.5
--- NOTE | 2020-12-24 10:59 | MHC.RECOVSUP ---
Recovery Support note: Patient is a 55 year old [place] speaking male who presented to [facility] due to an accidental overdose. This teletypewriter installer met with patient to discuss substance use and treatment options. Patient was recently on the medical floor due to pneumonia. Patient report she is taking methadone and finding it helpful. Patient did not want to discuss substance use and declined resources. Patient reported to this teletypewriter installer that he is leaving. Attempts to get patient to stay were unsuccessful. Patient refused to stay and left emergency department with a steady gait. Discussed case with patient's ED provider.
== END 2020-12-27 08:17 | disposition home or self-care (01) ==
PROVIDERS: Emergency Provider Emergency Medicine; PCP Family Medicine
DX: T40.1X1A Poisoning by heroin, accidental (unintentional), initial encounter (principal); F11.10 Opioid abuse, uncomplicated; F17.210 Nicotine dependence, cigarettes, uncomplicated; Y92.9 Unspecified place or not applicable; Z79.899 Other long term (current) drug therapy; Z71.6 Tobacco abuse counseling; Z71.51 Drug abuse counseling and surveillance of drug abuser
CPT/HCPCS: 99282; 99283; 99285

== ENCOUNTER 2022-02-23 01:35 | Emergency (ER) | payer MEDICAID, SELFPAY ==
--- NOTE | ~2022-02-23 | XR_ITS ---
EXAMINATION: XR KNEE, RIGHT CLINICAL INFORMATION: Fall COMPARISON: None TECHNIQUE: Four views of the right knee. FINDINGS: No fracture or subluxation. Mild patellofemoral compartment joint space narrowing. Chondrocalcinosis of the medial and lateral compartments. Tricompartmental small marginal osteophytes. Enthesophyte formation of the patella. No significant joint effusion. XR/XR knee RT 2V IMPRESSION: Mild tricompartmental degenerative changes. No fracture or malalignment.
[2022-02-23 01:44] VITALS: BP 142/80; PULSE 74; O2SAT 97
[2022-02-23 01:49] VITALS: BP 136/85; PULSE 78; RESP 18; TEMP 36.9; O2SAT 78; BMI 21.5
--- NOTE | 2022-02-23 02:40 | ED.LOWEXIN ---
HPI - Extremity Injury (Lower) General Chief Complaint: Extremity Injury, Lower Stated Complaint: right knee pain Time Seen by Provider: 02/23/22 02:28 Source: patient Mode of arrival: ambulatory Limitations: no limitations History of Present Illness HPI Narrative: 56-year-old male who presents emergency department for evaluation of right knee pain. Patient states he has been having pain in his right knee for over a week. He states that he had to jog home several days prior and he believes that this causes knee pain get worse. He has not noticed any swelling of the knee joint. He denied fever, chills, myalgias, arthralgias, other joint pain or fatigue. He states that his doctor blood test on him including a Lyme test and an x-ray of his knee but he was not able to get these tests done. He was concerned that his knee pain got worse so he came to the emergency department for evaluation. MD complaint: knee injury Onset (ago): week(s) (2) Injury: Right: knee Type of Injury: unknown Severity: severe Relieving factors: nothing Exacerbating factors: nothing Other symptoms: none Related Data Home Medications Medication Instructions Recorded Confirmed albuterol sulfate 90 mcg/actuation 2 puff PO QID 12/14/20 12/14/20 aerosol inhaler clonidine HCl 0.2 mg tablet 1 tab PO TID PRN insomnia 12/14/20 12/14/20 fluticasone 500 mcg-salmeterol 50 1 puff inhalation BID 12/14/20 12/14/20 mcg/dose blistr powdr for inhalation (Wixela Inhub) fluticasone propionate 50 2 spray intranasal DAILY 12/14/20 12/14/20 mcg/actuation nasal spray,suspension ipratropium 20 mcg-albuterol 100 1 puff inhalation QID PRN dyspnea 12/14/20 12/14/20 mcg/actuation mist for inhalation (Combivent Respimat) umeclidinium 62.5 mcg/actuation 1 puff inhalation DAILY 12/14/20 12/14/20 blister powder for inhalation (Incruse Ellipta) methadone 10 mg/mL oral concentrate 48 mg PO DAILY 12/15/20 12/15/20 Previous Rx's Medication Instructions Recorded cefuroxime axetil 500 mg tablet 500 mg PO Q12H #8 tabs 12/20/20 doxycycline hyclate 100 mg tablet 100 mg PO Q12H #8 tabs 12/20/20 prednisone 20 mg tablet See Taper PO DAILY #20 tabs 12/20/20 ibuprofen 600 mg tablet 600 mg PO Q6H PRN pain #30 tabs 02/23/22 Allergies Allergy/AdvReac Type Severity Reaction Status Date / Time No Known Allergies Allergy Verified 12/13/20 21:50 Review of Systems Review of Systems: Yes all other systems are reviewed and are negative [facility] Past Medical History [facility] Narrative: Social history: The patient lives in [place]. He smokes a quarter pack of cigarettes per day times many years. He denies alcohol use. He denies drug use. He is in a methadone program for opiate use disorder. Medical History COPD (chronic obstructive pulmonary disease) COPD (chronic obstructive pulmonary disease) COVID-19 determined by clinical diagnostic criteria Opiate abuse, continuous Pneumonia Social History Social History Household Members: Significant Other Housing: House Do you presently have visiting nurse or other home services: No Alcohol intake: never Substance Use Type: Heroin Advance Directives: No Advance Directives Information Provided: Yes service: No Current occupational status: disabled Physical Exam Vital Signs: Vital Signs: Last Vital Signs Temp 98.4 F 02/23/22 01:49 Pulse 78 02/23/22 01:49 Resp 18 02/23/22 01:49 BP 136/85 02/23/22 01:49 Pulse Ox 78 L 02/23/22 01:49 BMI result Body Mass Index 21.5 Const: Other: Awake, alert, male patient, does not appear to be in distress, very pleasant cooperative HEENT: Other: Normal cephalic atraumatic Resp: Other: No respiratory distress Extrem: Other: The patient's right knee revealed no joint effusion, he has no tenderness palpation over the medial or lateral aspect of the knee. The patient has no tenderness with movement of his patellar palpation over the patella tendon. The patient has negative anterior/posterior draw sign, he has no increased pain with lateral or medial stressors of the knee joint. Course Course Course Narrative: 56-year-old male who presents emergency department for evaluation right knee pain x2 weeks with no specific injury, the pain got worse after he had a drug home several days prior to evaluation. Patient's right knee revealed no joint effusion, erythema or increased warmth over the knee joint. Patient's x-ray of the right knee revealed no fracture or malalignment, the patient had mild tricompartmental degenerative changes. I did discuss these findings with the patient. Patient's pain is most likely secondary to flare-up of arthritis. He was given ibuprofen 600 mg orally given a prescription for ibuprofen 600 mg 3 times a day as needed for pain. He will be referred to orthopedic group for re-evaluation in 1-2 weeks Discharge Plan Discharge Clinical Impression: Arthritis of right knee, Acute pain of right knee Patient Disposition: Home, Self-Care Instructions: Knee Pain (ED) Additional Instructions: Your examination is consistent with arthritis of the knee, Take ibuprofen 600 mg pills, 1 pills every 6 hours as needed for pain. Follow-up with our orthopedic doctor's in 2 weeks. Please return to the emergency department if your symptoms get worse or if you develop any symptoms that are concerning to you. The x-ray of your right knee revealed mild arthritis of the knee. Please see the radiology reading below, you can share this reading with your doctor. I do not think that you need a repeat x-ray. You should consider getting the blood work as per your doctor's orders. EXAMINATION: XR KNEE, RIGHT? CLINICAL INFORMATION: Fall? COMPARISON: None? TECHNIQUE: Four views of the right knee. FINDINGS: No fracture or subluxation. Mild patellofemoral compartment joint space narrowing. Chondrocalcinosis of the medial and lateral compartments. Tricompartmental small marginal osteophytes. Enthesophyte formation of the patella. No significant joint effusion.? XR/XR knee RT 2V IMPRESSION: Mild tricompartmental degenerative changes. No fracture or malalignment. ? Dictated By: Mata Chi MD Prescriptions: New ibuprofen 600 mg tablet 600 mg PO Q6H PRN (Reason: pain) Qty: 30 0RF No Action clonidine HCl 0.2 mg tablet 1 tab PO TID PRN (Reason: insomnia) fluticasone propion-salmeterol [Wixela Inhub] 500-50 mcg/dose blister with device 1 puff inhalation BID albuterol sulfate 90 mcg/actuation HFA aerosol inhaler 2 puff PO QID fluticasone propionate 50 mcg/actuation spray,suspension 2 spray intranasal DAILY Combivent Respimat 20-100 mcg/actuation mist 1 puff inhalation QID PRN (Reason: dyspnea) Incruse Ellipta 62.5 mcg/actuation blister with device 1 puff inhalation DAILY methadone 10 mg/mL Concentrate 48 mg PO DAILY cefuroxime axetil 500 mg Tablet 500 mg PO Q12H Qty: 8 0RF doxycycline hyclate 100 mg Tablet 100 mg PO Q12H Qty: 8 0RF prednisone 20 mg tablet See Taper PO DAILY Qty: 20 0RF Taper: Prednisone 40 mg daily for 3 Days and 0 Hour 30 mg daily for 3 Days and 0 Hour 20 mg daily for 3 Days and 0 Hour 10 mg daily for 3 Days and 0 Hour
[2022-02-23] MEDS: Ibuprofen 600 MG TABLET PO (02:59)
== END 2022-02-23 03:05 | disposition home or self-care (01) ==
PROVIDERS: Emergency Provider Emergency Medicine Emergency Medical Services
DX: M17.11 Unilateral primary osteoarthritis, right knee (principal); M25.561 Pain in right knee
CPT/HCPCS: 73560; 99283

== ENCOUNTER 2024-09-14 03:37 | Inpatient (IN) | payer MEDICAID, SELFPAY ==
[2024-09-14] VITALS (12 sets, daily range): BP systolic 121–155; BP diastolic 74–91; PULSE 70–102; RESP 16–30; TEMP 36.2–38; O2SAT 93–96; BMI 18.3
--- NOTE | 2024-09-14 | ECG_ITS ---
Test Reason : Chest pain Blood Pressure : */* mmHG Vent. Rate : 104 BPM Atrial Rate : 104 BPM P-R Int : 128 ms QRS Dur : 94 ms QT Int : 340 ms P-R-T Axes : 86 101 73 degrees QTcB Int : 447 ms Sinus tachycardia with Premature supraventricular complexes Rightward axis Pulmonary disease pattern Abnormal ECG When compared with ECG of 13-Dec-2020 22:06, Premature supraventricular complexes are now Present Referred By: Generic ED Physician Electronically Signed By: BOB BRANNON MD
--- NOTE | ~2024-09-14 | XR_ITS ---
CLINICAL HISTORY: Shortness of breath 1 view chest x-ray Comparison: CR - XR CHEST 1V - 12/14/20 19:13 EDT Findings: There is hyperexpansion of the lungs. There is no focal consolidation or pleural effusion. Heart size is normal. Remote appearing right posterior 9th rib fracture is present. IMPRESSION: 1. Hyperexpansion of the lungs, which can be seen with COPD or asthma. No acute pulmonary infiltrates are identified. This document has been electronically signed by: Gunjan Love on 09/14/2024 05:38:53
--- NOTE | ~2024-09-14 | CT_ITS ---
EXAMINATION: CT ANGIOGRAM CHEST CLINICAL INFORMATION: Hypoxia. COMPARISON: None available. TECHNIQUE: CTPA examination performed with axial images obtained through the chest after the administration of 65 mL of Omnipaque 350 intravenous contrast. Extensive vascular post-processing including two-dimensional and three-dimensional reformatted images were created and reviewed on an independent workstation. This CT examination was performed using dose optimization techniques as appropriate, variously including the following: *Automated exposure control *Adjustment of mA and/or kV according to patient size (this includes techniques or standardized protocols for targeted exams where dose is matched to indication/reason for exam; i.e. extremities or head) *Use of iterative reconstruction technique FINDINGS: LUNGS: -Lungs demonstrate centrilobular emphysematous changes. -There is marked peribronchial thickening in the lower lobes right greater than left, with foci of endobronchial mucoid plugging left greater than right. There is segmental consolidation of the medial left lower lobe with reticular opacities as well as nodular opacities in keeping with pneumonia. -Milder changes noted in the right base with subsegmental atelectasis/pneumonia. -Nonspecific patchy groundglass attenuation in the medial right middle lobe, also presumably infectious or inflammatory. -Stable chronic interstitial changes in the anteromedial right upper lobe. -No suspicious nodules within limitations of underlying parenchymal disease. PLEURA: There is no pleural effusion. No pleural mass or thickening. MEDIASTINUM: -Subcentimeter mediastinal lymph nodes. -Enlarged left inferior hilar node measuring 1.4 cm in short axis, presumably reactive given the process in the left lower lobe. -Small reactive appearing lymph nodes right hilum. -Normal thyroid. -Mildly patulous esophagus with a small type I hiatus hernia. -Central airways are patent -Heart size is normal. No evidence of right heart strain. No reflux of contrast into the IVC. VASCULAR: -There is adequate opacification of the pulmonary arterial system with contrast. There is no evidence of pulmonary embolus. The main pulmonary artery is normal in size. -The aorta is normal in caliber without evidence of acute aortic syndrome. AXILLA/CHEST WALL: Unremarkable. UPPER ABDOMEN: Limited, unremarkable. OSSEOUS STRUCTURES: -No suspicious lytic or blastic bone lesion. Healed right rib fracture noted. CT/CT angio chest PE protocol IMPRESSION: 1. Exam quality is diagnostic. There is no evidence of pulmonary embolus or acute aortic syndrome. Normal caliber pulmonary arteries. 2. Emphysema. Diffuse bronchial wall thickening with foci of endobronchial mucoid plugging lower lobes left greater than right. Segmental consolidation medial left lower lobe consistent with pneumonia. Subsegmental consolidation posterior right lower lobe, possibly atelectasis versus additional mild pneumonia. No effusions. 3. Patchy peribronchial groundglass opacities in the medial right middle lobe, also likely infectious/inflammatory in nature. 4. Chronic interstitial fibrosis noted in the right upper lobe medially. This is unchanged. 5. Enlarged inferior left hilar lymph nodes, presumably reactive given the process in the left lower lobe. 6. Ancillary findings as discussed. Electronically signed by: Clinton Matamoros MD 09/17/2024 12:55 PM MOM[facility]
[2024-09-14 04:39] LABS: MANUAL DIFF FLAG NO
[2024-09-14 04:40] LABS: Basophils Percent Auto 0.2 % (0-2); Eosinophils Percent Auto 0.2 % (0-4); Hematocrit 40.8 % (42.0-52.0); Hemoglobin 13.7 g/dl (14.0-18.0); Imm Gran Abs Auto 0.02 X10*3/uL (0.00-0.03); Imm Gran Pct Auto 0.2 % (0.0-0.4); Lymphocytes Absolute Auto 1.1 X10*3/uL (1.2-4.9); Lymphocytes Percent Auto 12.7 % (20-40); Mean Corpuscular HGB Conc 33.6 g/dl (31.0-36.0); Mean Corpuscular Hemoglobin 28.8 pg (27.0-33.0); Mean Corpuscular Volume 85.7 fL (80.0-98.0); Mean Platelet Volume 8.5 fL (9.4-12.4); Monocytes Absolute Auto 0.7 X10*3/uL (0.1-1.2); Monocytes Percent Auto 8.5 % (2-11); Neutrophils Absolute Auto 6.5 x10*3/uL (2.0-8.3); Neutrophils Percent Auto 78.2 % (45-73); Platelet Count 243 X10*3/uL (160-400); Red Blood Count 4.76 X10*6/uL (4.60-5.80); Red Cell Distribution Width 13.8 % (11.0-16.0); White Blood Count 8.3 X10*3/uL (4.8-10.8)
[2024-09-14 05:00] LABS: Alanine Aminotransferase 17 U/L (0-40); Albumin Level 3.9 g/dL (3.5-5.0); Alkaline Phosphatase 73 U/L (39-117); Anion Gap 15 (12-20); Aspartate Amino Transferase 33 U/L (5-37); Bilirubin Total 0.5 mg/dL (0.0-1.0); Blood Urea Nitrogen 15 mg/dL (9-16); Calcium 8.8 mg/dL (8.4-10.2); Carbon Dioxide 24 mmol/L (22-29); Chloride 100 mmol/L (96-108); Creatinine Clr Calc Pharmacy 90.8; Estimated Glomerular Filt Rate > 60; Glucose Random 112 mg/dL (60-115); Potassium 4.4 mmol/L (3.3-5.1); Sodium 135 mmol/L (135-145); Total Protein 7.5 g/dL (6.5-8.0)
[2024-09-14 05:06] LABS: Troponin-I High Sensitivity 10.3 ng/L (<3.5-35.0)
--- NOTE | 2024-09-14 05:08 | ED_ITS ---
HPI - Chest Pain General Chief Complaint: Chest Pain Stated Complaint: HEROIN USE ? Time Seen by Provider: 09/14/24 05:04 Source: patient Mode of arrival: ambulatory Limitations: no limitations History of Present Illness ED Provider: Dr. Trudy Blood HPI narrative: Patient comes to the emergency room via ambulance. Patient was found on the street by police department. Patient complaining of coughing, shortness of breath. According to EMS, the patient's oxygen saturation was 87% on room air, started on 2 L nasal cannula. According to the patient, he does not use oxygen at home. Patient admits to using drugs. Patient has been previously seen in the emergency room for drug overdose. Related Data Home Medications ?Medication ?Instructions ?Recorded ?Confirmed albuterol sulfate 90 mcg/actuation 2 puff PO QID 12/14/20 12/14/20 aerosol inhaler clonidine HCl 0.2 mg tablet 1 tab PO TID PRN insomnia 12/14/20 12/14/20 fluticasone 500 mcg-salmeterol 50 1 puff inhalation BID 12/14/20 12/14/20 mcg/dose blistr powdr for inhalation (Wixela Inhub) fluticasone propionate 50 2 spray intranasal DAILY 12/14/20 12/14/20 mcg/actuation nasal spray,suspension ipratropium 20 mcg-albuterol 100 1 puff inhalation QID PRN dyspnea 12/14/20 12/14/20 mcg/actuation mist for inhalation (Combivent Respimat) umeclidinium 62.5 mcg/actuation 1 puff inhalation DAILY 12/14/20 12/14/20 blister powder for inhalation (Incruse Ellipta) methadone 10 mg/mL oral concentrate 48 mg PO DAILY 12/15/20 12/15/20 Previous Rx's ?Medication ?Instructions ?Recorded cefuroxime axetil 500 mg tablet 500 mg PO Q12H #8 tabs 12/20/20 doxycycline hyclate 100 mg tablet 100 mg PO Q12H #8 tabs 12/20/20 prednisone 20 mg tablet See Taper PO DAILY #20 tabs 12/20/20 ibuprofen 600 mg tablet 600 mg PO Q6H PRN pain #30 tabs 02/23/22 ibuprofen 600 mg tablet 600 mg PO Q6H PRN pain #30 tabs 02/23/22 Allergies Allergy/AdvReac Type Severity Reaction Status Date / Time No Known Allergies Allergy Verified 09/14/24 04:17 Review of Systems 2 Review of Systems: Yes Other (Under the influence of drugs, 2 somnolent) [facility] Past Medical History Medical History Opiate abuse, continuous Pneumonia COVID-19 determined by clinical diagnostic criteria COPD (chronic obstructive pulmonary disease) COPD (chronic obstructive pulmonary disease) Social History Social History Household Members: Significant Other Housing: House Do you presently have visiting nurse or other home services: No Alcohol intake: never Substance Use Type: Heroin Do you have a plan to hurt others: No Plan service: No Current occupational status: disabled Physical Exam 2 Vital Signs: Vital Signs: Last Vital Signs Temp 100.4 F 09/14/24 04:12 Pulse 102 H 09/14/24 04:12 Resp 26 H 09/14/24 04:12 BP 140/86 H 09/14/24 04:12 Pulse Ox 94 09/14/24 04:12 O2 Del Method Nasal Cannula 09/14/24 04:12 Oxygen Flow Rate 4 09/14/24 04:12 BMI result Body Mass Index 18.3 Const: Other: Appearance: Somnolent, wakes up to name and falls back asleep. Eyes: Pupils equal, round and reactive to light. ENT: Pharynx normal. Neck: Normal inspection. Neck supple. No lymph nodes noted. No crepitus CVS: Normal heart rate and rhythm. Pulses normal. Normal S1 and S2 Respiratory: No respiratory distress. Breath sounds normal. No Wheezing. No rales Abdomen: Soft and nontender. No rigidity. No distention. Skin: Skin warm and dry. Normal skin color. Normal skin turgor. Extremities: No lower extremity edema. No Lacerations. No Rash Neuro: Somnolent, not participating in cranial nerve assessment Psych: calm, cooperative, normal affect Course Course Course Narrative: Oxygen saturation isn't% on room air, patient known to L nasal cannula saturating at 91%. On physical exam, it was noted that patient's temperature is 100.4 degrees, no clear source of infection at this time. Empirically, patient being treated with IV fluids and antibiotics. At this time, 05:11, sepsis is not suspected There is no clear source of infection at this time, chest x-ray pending, serology pending Medications Administered Generic Name Dose Route Start Last Admin Trade Name Freq PRN Reason Stop Dose Admin Sodium Chloride 1,000 mls @ 999 mls/hr 09/14/24 05:09 09/14/24 05:25 Ns IVCONT 09/14/24 06:09 999 mls/hr .Q1H1M ONE Administration Discontinued Medications Generic Name Dose Route Start Last Admin Trade Name Freq PRN Reason Stop Dose Admin Azithromycin 500 mg 09/14/24 05:09 09/14/24 05:42 Azithromycin 500 Mg Tablet PO 09/14/24 05:10 500 mg ONCE ONE Administration Ceftriaxone Sodium 1 gm 09/14/24 05:09 09/14/24 05:41 Ceftriaxone Sodium 1 Gm Vial IVPUSH 09/14/24 05:10 1 gm ONCE ONE Administration Ibuprofen 600 mg 09/14/24 05:09 09/14/24 05:41 Ibuprofen 600 Mg Tablet PO 09/14/24 05:10 600 mg ONCE ONE Administration Medical Decision Making Medical Decision Making [facility] Narrative: My interpretation of labs: White blood cell count within normal limits. Chemistry and abnormality, chest x-ray does not show any infiltrates. However, patient's oxygen saturation 87% on room air without any exertion. Patient now on 2 L of O2. Serology positive for RSV. As mentioned above, patient received empiric antibiotics and IV fluids. I discussed the patient with Dr. Barnard, patient being admitted Differential Diagnosis Differential Diagnoses: The differential diagnosis associated with the presentation includes (RSV, chronic lung disease exacerbation, influenza, pneumonia) Admission/Observation Consideration of admission/observation: Escalation of care including admission/observation considered Consult Healthcare Provider Management of the patient was discussed with: Hospitalist Lab Data [facility] Lab Attestation statement: I reviewed the patient's lab results. 09/14/24 04:34 09/14/24 04:34 Labs: Lab Results 09/14/24 09/14/24 Range/Units 04:34 05:27 WBC 8.3 (4.8-10.8) X10*3/uL RBC 4.76 (4.60-5.80) X10*6/uL Hgb 13.7 L (14.0-18.0) g/dl Hct 40.8 L (42.0-52.0) % MCV 85.7 (80.0-98.0) fL MCH 28.8 (27.0-33.0) pg MCHC 33.6 (31.0-36.0) g/dl RDW 13.8 (11.0-16.0) % Plt Count 243 (160-400) X10*3/uL MPV 8.5 L (9.4-12.4) fL Immature Gran % (Auto) 0.2 (0.0-0.4) % Neut % (Auto) 78.2 H (45-73) % Lymph % (Auto) 12.7 L (20-40) % Weber % (Auto) 8.5 (2-11) % Eos % (Auto) 0.2 (0-4) % Baso % (Auto) 0.2 (0-2) % Lymph # (Auto) 1.1 L (1.2-4.9) X10*3/uL Weber # (Auto) 0.7 (0.1-1.2) X10*3/uL Eos # (Auto) 0.0 (0.0-0.4) X10*3/uL Baso # (Auto) 0.0 (0.0-0.2) X10*3/uL Abs Immat Gran (auto) 0.02 (0.00-0.03) X10*3/uL Absolute Neuts (auto) 6.5 (2.0-8.3) x10*3/uL Absolute Nucleated RBC 0.000 (0.0-0.012) X10*3/uL Nucleated RBC % (auto) 0.0 (0.0-0.2) /100WBC VBG pH 7.46 H (7.32-7.43) VBG pCO2 38 mmHg VBG pO2 73 mmHg VBG HCO3 27 H (22-26) mmol/L VBG O2 Saturation 96.0 % VBG Base Excess 4.0 mmol/L Sodium 135 (135-145) mmol/L Potassium 4.4 (3.3-5.1) mmol/L Chloride 100 (96-108) mmol/L Carbon Dioxide 24 (22-29) mmol/L Anion Gap 15 (12-20) BUN 15 (9-16) mg/dL Creatinine 0.68 (0.5-1.4) mg/dL Estim Creat Clear Calc 90.8 Estimated GFR > 60 Random Glucose 112 (60-115) mg/dL Lactic Acid 1.0 (0.5-2.0) mmol/L Calcium 8.8 D (8.4-10.2) mg/dL Total Bilirubin 0.5 (0.0-1.0) mg/dL AST 33 (5-37) U/L ALT 17 (0-40) U/L Alkaline Phosphatase 73 (39-117) U/L Troponin I High Sens 10.3 (<3.5-35.0) ng/L Total Protein 7.5 (6.5-8.0) g/dL Albumin 3.9 (3.5-5.0) g/dL Influenza Type A (PCR) NEGATIVE (Negative) Influenza Type B (PCR) NEGATIVE (Negative) RSV RNA Qual (PCR) POSITIVE A (Negative) SARS-CoV-2 RNA (RT-PCR) NEGATIVE (Negative) Independent Interpretation I performed an independent interpretation of an: Plain X-Ray Radiology Impression Discussion of test interpretation with radiology: I have reviewed the radiologist's reading. Radiologist Impression: There is hyperexpansion of the lungs. There is no focal consolidation or pleural effusion. Heart size is normal. Remote appearing right posterior 9th rib fracture is present. IMPRESSION: 1. Hyperexpansion of the lungs, which can be seen with COPD or asthma. No acute pulmonary infiltrates are identified. Critical Care Time Critical Care Time Critical Care Time: Yes Total Critical Care Time: 60 Attestation: I have personally provided critical care time. Time includes review of lab data, radiology results, discussion with consultants, and monitoring for potential decompensation. Intervention performed as documented. Discharge Plan Discharge Clinical Impression: RSV bronchitis, Hypoxic Patient Disposition: Admitted As Inpatient Prescriptions: No Action clonidine HCl 0.2 mg tablet 1 tab PO TID PRN (Reason: insomnia) fluticasone propion-salmeterol [Wixela Inhub] 500-50 mcg/dose blister with device 1 puff inhalation BID albuterol sulfate 90 mcg/actuation HFA aerosol inhaler 2 puff PO QID fluticasone propionate 50 mcg/actuation spray,suspension 2 spray intranasal DAILY Combivent Respimat 20-100 mcg/actuation mist 1 puff inhalation QID PRN (Reason: dyspnea) Incruse Ellipta 62.5 mcg/actuation blister with device 1 puff inhalation DAILY methadone 10 mg/mL Concentrate 48 mg PO DAILY cefuroxime axetil 500 mg Tablet 500 mg PO Q12H Qty: 8 0RF doxycycline hyclate 100 mg Tablet 100 mg PO Q12H Qty: 8 0RF prednisone 20 mg tablet See Taper PO DAILY Qty: 20 0RF Taper: Prednisone 40 mg daily for 3 Days and 0 Hour 30 mg daily for 3 Days and 0 Hour 20 mg daily for 3 Days and 0 Hour 10 mg daily for 3 Days and 0 Hour ibuprofen 600 mg tablet 600 mg PO Q6H PRN (Reason: pain) Qty: 30 0RF ibuprofen 600 mg tablet 600 mg PO Q6H PRN (Reason: pain) Qty: 30 0RF Print Language: Lebanese
[2024-09-14 05:17] LABS: Influenza A PCR NEGATIVE (Negative); Influenza B PCR NEGATIVE (Negative); Resp Syncy Virus RNA Qual PCR POSITIVE (Negative); SARS COV2 PCR INHOUSE NEGATIVE (Negative)
[2024-09-14] MEDS: 0.9 % Sodium Chloride 1,000 ML 999 ML IVCONT (05:25)
[2024-09-14 05:27] LABS: Venous Blood Gas Refer to POC result
[2024-09-14 05:33] LABS: VBG HCO3 27 mmol/L (22-26); VBG pCO2 38 mmHg; VBG pH 7.46 (7.32-7.43); VBG pO2 73 mmHg
[2024-09-14] MEDS: Ibuprofen 600 MG TABLET PO (05:41)
[2024-09-14] MEDS: cefTRIAXone sodium 1 GM VIAL IVPUSH (05:41)
[2024-09-14] MEDS: Azithromycin 500 MG TABLET PO (05:42)
--- NOTE | 2024-09-14 06:13 | P.HPHOSP_ITS ---
History of Present Illness Date of Service: 09/14/24 Attending physician on admission: Kandis Slade Chief Complaint: SOB, cough Patient is a 59-year-old male with a past medical history significant for COPD and substance abuse (IV cocaine and heroin), who presented to the ED due to shortness of breath and cough, found on the street. He describes a productive cough with green sputum with associated fever, chills, nausea and vomiting. He was found to be hypoxic, 87% on room air which improved to 90 with 2 L NC. Patient is a poor historian this having a hard time staying awake for the interview. Pt threated nurse multiple times that he would leave if he does not get his methadone now. He reports last use was yesterday morning. Review of Systems 2 Constitutional: Constitutional: Reports chills, Denies fatigue, Reports fever(s) and Denies headache(s) Eyes: Eyes: Denies change in vision ENT: Denies headache(s), Denies nasal congestion, Denies nasal discharge and Denies sore throat Cardiovascular: Cardiovascular: Denies chest pain, Denies rapid heart rate, Denies lightheadedness and Reports dyspnea Respiratory: Respiratory: Reports change in phlegm color, Reports chest congestion, Reports cough, Reports dyspnea and Reports wheezing Gastrointestinal: Gastrointestinal: Denies coffee ground emesis, Denies diarrhea, Reports nausea, Reports vomiting and Denies hematemesis Genitourinary: Genitourinary: Denies dysuria, Denies urinary frequency and Denies urinary urgency Musculoskeletal: Musculoskeletal: Denies myalgias Integumentary/Breasts: Skin/Breast: Denies rash Neurologic: Denies confusion and Denies headache(s) Psychiatric: Psychiatric: Denies confusion Endocrine: Endocrine: Denies fatigue Hematologic/Lymphatic: Hematologic/Lymphatic: Denies easy bleeding and Denies easy bruising Allergic/Immunologic: Allergic/Immunologic: Reports wheezing PMFSH Medical History Opiate abuse, continuous Pneumonia COVID-19 determined by clinical diagnostic criteria COPD (chronic obstructive pulmonary disease) COPD (chronic obstructive pulmonary disease) Social History Household Members: Significant Other Housing: House Do you presently have visiting nurse or other home services: No Alcohol intake: never Substance Use Type: Heroin Advance Directives: No Advance Directives Information Provided: Yes Do you have a plan to hurt others: No Plan service: No Current occupational status: disabled Meds Allergies Allergy/AdvReac Type Severity Reaction Status Date / Time No Known Allergies Allergy Verified 09/14/24 04:17 Home Medications ?Medication ?Instructions ?Recorded ?Confirmed ?Last Taken ?Type albuterol sulfate 90 mcg/actuation 2 puff PO QID 12/14/20 12/14/20 12/14/20 00:55 History aerosol inhaler clonidine HCl 0.2 mg tablet 1 tab PO TID PRN insomnia 12/14/20 12/14/20 12/14/20 00:55 History fluticasone 500 mcg-salmeterol 50 1 puff inhalation BID 12/14/20 12/14/20 12/14/20 00:55 History mcg/dose blistr powdr for inhalation (Wixela Inhub) fluticasone propionate 50 2 spray intranasal DAILY 12/14/20 12/14/20 12/14/20 00:55 History mcg/actuation nasal spray,suspension ipratropium 20 mcg-albuterol 100 1 puff inhalation QID PRN dyspnea 12/14/20 12/14/20 12/14/20 00:55 History mcg/actuation mist for inhalation (Combivent Respimat) umeclidinium 62.5 mcg/actuation 1 puff inhalation DAILY 12/14/20 12/14/20 Unknown History blister powder for inhalation (Incruse Ellipta) methadone 10 mg/mL oral concentrate 48 mg PO DAILY 12/15/20 12/15/20 12/13/20 History Physical Exam 2 Vital Signs and Narrative: Vital Signs: Last Vital Signs Temp 100.4 F 09/14/24 04:12 Pulse 102 H 09/14/24 04:12 Resp 26 H 09/14/24 04:12 BP 140/86 H 09/14/24 04:12 Pulse Ox 94 09/14/24 04:12 O2 Del Method Nasal Cannula 09/14/24 04:12 Oxygen Flow Rate 4 09/14/24 04:12 BMI result Body Mass Index 18.3 General: nodding off through interview, did not open eyes when talking, alter to person, no acute distress Resp: congestion in upper airways, mild expiratory wheezing throughout. no respiratory distress. CVS: mild tachy, +murmur GI: +BS, NT, no distention Skin: Warm, dry Neuro: unable to perform, pt not cooperative Extremities: No LE edema Psych: angry Const: General: No confusion Orientation/consciousness: No confusion Neuro: General: No confusion Results Labs 09/14/24 04:34 09/14/24 04:34 Labs: Laboratory Results - last 24 hr 09/14/24 09/14/24 04:34 05:27 MCV 85.7 MCH 28.8 MCHC 33.6 RDW 13.8 Plt Count 243 MPV 8.5 L Immature Gran % (Auto) 0.2 Neut % (Auto) 78.2 H Lymph % (Auto) 12.7 L [place] % (Auto) 8.5 Eos % (Auto) 0.2 Baso % (Auto) 0.2 Lymph # (Auto) 1.1 L [place] # (Auto) 0.7 Eos # (Auto) 0.0 Baso # (Auto) 0.0 Abs Immat Gran (auto) 0.02 Absolute Neuts (auto) 6.5 Absolute Nucleated RBC 0.000 Nucleated RBC % (auto) 0.0 VBG pH 7.46 H VBG pCO2 38 VBG pO2 73 VBG HCO3 27 H VBG O2 Saturation 96.0 VBG Base Excess 4.0 Anion Gap 15 Estim Creat Clear Calc 90.8 Estimated GFR > 60 Random Glucose 112 Lactic Acid 1.0 Calcium 8.8 D Total Bilirubin 0.5 AST 33 ALT 17 Alkaline Phosphatase 73 Troponin I High Sens 10.3 Total Protein 7.5 Albumin 3.9 Influenza Type A (PCR) NEGATIVE Influenza Type B (PCR) NEGATIVE RSV RNA Qual (PCR) POSITIVE A SARS-CoV-2 RNA (RT-PCR) NEGATIVE Assessment and Plan (1) Sepsis: Status: Acute (2) Hypoxic: Status: Acute (3) RSV bronchitis: Status: Acute (4) COPD exacerbation: Status: Acute (5) Substance use disorder: Status: Acute (6) IVDU (intravenous drug user): Status: Acute (7) Malnourished: Status: Acute Plan Patient is a 59-year-old male with a past medical history significant for COPD and substance abuse (IV cocaine and heroin), who presented to the ED due to shortness of breath and cough, found on the street. Sepsis and hypoxia secondary to RSV and COPD exacerbation - WBC 8.3, lactic acid normal, vitals with tachycardia and tachypnea, blood cultures x2 pending, not severe sepsis - patient arrived on 4 L via and C at 95% O2, was found at 87% ORA - chest x-ray negative - positive for RSV, contact precautions/supportive care - EKG with sinus tachycardia - 1L NS in ED - started on ceftriaxone and azithromycin prophylactically in ED, continue azithromycin for COPD exacerbation/bronchitis - Solu-Medrol 125 mg x 1 dose - DuoNebs q.4h while awake - monitor CBC and BMP GAEL/IVDU - patient threatened to leave multiple times if he did not receive methadone - ED nurse attempted to obtain and methadone dose from his clinic however they are currently closed - 1 time dose of methadone 120 mg given - addiction med consult Malnutrition - consider nutrition consult once patient more cooperative Full code VTE prophylaxis: Lovenox Patient with sepsis and hypoxia secondary to RSV and COPD exacerbation, requiring admission for IV antibiotics, breathing treatments and monitoring for at least 2 midnights stay. Quality Stroke Does the patient have a stroke diagnosis?: No VTE Prior VTE?: No VTE Risk Level:: Medical - moderate - high VTE Device Contraindication: Treatment Not Indicated VTE Drug Contraindication: N/A - Med Ordered
[2024-09-14] MEDS: methADONE HCl 20 MG/2 ML ORAL.CONC 60 MG PO (06:42)
[2024-09-14] MEDS: methylPREDNISolone Sod Succ 125 MG/2 ML VIAL IVPUSH (06:47)
[2024-09-14] MEDS: Enoxaparin Sodium 40 MG/0.4 ML SYRINGE SUBCUT (06:50)
[2024-09-14] MEDS: HYDROmorphone HCl 0.5 MG/0.5 ML SYRINGE IVPUSH (07:01)
[2024-09-14 07:10] LABS: Amphetamine Screen Urine Not Detected (Not Detect); Barbiturates, Urine Not Detected (Not Detect); Benzodiazepines Screen Urine Not Detected (Not Detect); Buprenorphine Scr Not Detected (Not Detect); Cannabinoid Screen Urine Not Detected (Not Detect); Cocaine Screen Urine POSITIVE (Not Detect); Fentanyl, urine POSITIVE (Not Detect); Methadone Screen, Urine Not Detected (Not Detect); Opiate Screen Urine POSITIVE (Not Detect); Oxycodone Screen Urine Not Detected (Not Detect); Phencyclidine Screen Urine Not Detected (Not Detect)
[2024-09-14 07:17] LABS: Appearance Urine Clear; Color Urine Yellow; Glucose Urine UA Negative (Negative); Leukocyte Esterase Urine Negative (Negative); Nitrite Urine Negative (Negative); Specific Gravity - Urine 1.015 (1.005-1.025); Urine Blood Negative (Negative); Urine Ketones Negative (Negative); Urine Protein Trace mg/dL (Neg-Trace)
--- NOTE | 2024-09-14 07:23 | PC.NURSE ---
pt expressed needing methadone 120mg but hasnt taken it in a while. admits to injecting heroin yesterday morning. no answer from [facility] per patient. hospitalist, pharmacy both aware. 60mg given, dilaudid 0.5 given. pt agitation improved. call bermudez in reach, SpO2 stable. plan of care ongoing
[2024-09-14 07:32] LABS: Bacteria Urine None Seen (None Seen); Hyaline Casts Urine 0-2 /LPF (0-2); RBC Urine 0-2 /HPF (0-2); Squamous Epithelial Cell Urine 0-2 /HPF (0-2); WBC Urine 0-5 /HPF (0-5)
[2024-09-14] MEDS: Albuterol/Iprat 2.5/0.5MG 3 ML AMPUL.NEB INHALE ×4 (07:40→19:48)
--- NOTE | 2024-09-14 09:05 | PHA.MEDREC ---
Pharmacy Consult ? Medication Reconciliation Pharmacy has completed the medication reconciliation. Patient barely arousable, mumbled none when I asked about home meds however he does have recent fills for inhalers and clonidine. Utilized claim history
--- NOTE | 2024-09-14 09:56 | PC.NURSE ---
assumed care of patient at 0700, patient is awake and alert, oriented x3. patient currently on 6L NC satting 92%. patient now resting quietly, resp even and unlabored, skin dry and intact. VSS
--- NOTE | 2024-09-14 12:51 | PC.NURSE ---
patient has slept through out the morning, resp even and unlabored, VSS
--- NOTE | 2024-09-14 13:25 | PM.EVENT ---
Event Note Date of Service: 09/14/24 Event Note: Pt seen/examined, labs, meds, imaging reviewed 59-year-old male with a past medical history significant for COPD and substance abuse (IV cocaine and heroin), who presented to the ED due to shortness of breath and cough, found on the street. viral Sepsis and hypoxia secondary to RSV causing COPD exacerbation - WBC 8.3, lactic acid normal, vitals with tachycardia and tachypnea, blood cultures x2 pending, not severe sepsis - patient arrived on 4 L via and C at 95% O2, was found at 87% ORA - chest x-ray negative - positive for RSV, contact precautions/supportive care - started on ceftriaxone and azithromycin empirically in ED, continue azithromycin for COPD exacerbation/bronchitis - Solu-Medrol 125 mg x 1 dose, prednisone starting tomorrow - DuoNebs q.4h while awake - monitor CBC and BMP GAEL/IVDU (+fentanyl, cocaine, opioid and no methadone detected) - patient threatened to leave multiple times if he did not receive methadone - ED nurse attempted to obtain and methadone dose from his clinic however they are currently closed - 1 time dose of methadone 120 mg given - addiction med consult Malnutrition - consider nutrition consult once patient more cooperative Full code VTE prophylaxis: Lovenox Patient with sepsis and hypoxia secondary to RSV and COPD exacerbation, requiring admission for IV antibiotics, breathing treatments and monitoring for at least 2 midnights stay. Time Spent With Patient Time: Total time managing care of this patient today ____ minutes.
--- NOTE | 2024-09-14 14:43 | PC.NURSE ---
patient sitting up and eating lunch tray.
--- NOTE | 2024-09-14 17:07 | PC.NURSE ---
patient has been resting quietly, resp even and unlabored, patient remains on 6lNC. VSS
--- NOTE | 2024-09-14 19:01 | PC.NURSE ---
Assumed care of patient at this time, patient calling out for RN, reporting feel pain everywhere, stated this is why I always leave a AMA I get no medication and would rather just use on the streets educated patient that this RN would reach out to provider to.
--- NOTE | 2024-09-14 19:50 | PC.NURSE ---
Patient using call bermudez very frequently, stating he may want to leave AMA, asking about why he was not given full dose of methadone, and stating he is so uncomfortably. Per prior shift RN unable to validate methadone d/t clinic being closed, pt given 60mg earlier today. Hospitalist ordered a dose of pain medication.
[2024-09-14] MEDS: HYDROmorphone HCl 1 MG/ML SYRINGE IVPUSH (20:07)
[2024-09-15] VITALS (19 sets, daily range): BP systolic 100–147; BP diastolic 56–90; PULSE 62–95; RESP 15–22; TEMP 36.3–37.1; O2SAT 86–98; BMI 18.3
[2024-09-15] MEDS: ondansetron HCL 4 MG/2 ML VIAL IVPUSH (00:50)
[2024-09-15] MEDS: HYDROmorphone HCl 1 MG/ML SYRINGE IVPUSH ×2 (00:50→05:50)
[2024-09-15] MEDS: Azithromycin 500 MG in 0.9 % Sodium Chloride 250 ML 125 MG IV (05:49)
[2024-09-15] MEDS: Enoxaparin Sodium 40 MG/0.4 ML SYRINGE SUBCUT (05:52)
--- NOTE | 2024-09-15 06:18 | PC.NURSE ---
patient has been getting IV Dilaudid Q3 hours for his pain, but reporting to this RN that it isnt enough and requesting doctor come to bedside. hospitalist messaged at this time
[2024-09-15 06:38] LABS: MANUAL DIFF FLAG NO
--- NOTE | 2024-09-15 06:41 | PM.EVENT ---
Event Note Date of Service: 09/15/24 Event Note: 6:17 am - Contacted by nursing to notify patient was requesting me to come to bedside because he is not happy with the dilaudid which he has been getting every 3 hours overnight. It has been mentioned that the patient is supposed to take methadone 120 mg but the dose has been unable to be verified because the clinic has been closed and open today at 8 am. Interestingly his urine drug screen yesterday is negative for methadone but positive for Fentanyl, opiate and cocaine this could means he is likely not taking his methadone. He was given 60 mg PO yesterday until dose is verified. He has been threatening to leave in multiple occasions to leave AMA if he does not get the methadone 120 mg. Now, this morning, I was informed he wants to leave AMA so I provided him with AMA paperwork for him to sign. Patient is aware that addiction medicine provider has been consulted since admission to assess the need of methadone and/or the appropriate dose. We are still awaiting for that evaluation. 6:44 am - Nurse just informed me that the patient is now deciding to stay and that his IV was already taken and the antibiotic did not get finish (azithromycin). Time Spent With Patient Time: Total time managing care of this patient today ____ minutes.
--- NOTE | 2024-09-15 06:45 | PC.NURSE ---
pt requesting to leave AMA d/t not getting methadone. took off all monitoring and IV. hospitalist to bedside with forms however now pt reporting he will stay
[2024-09-15 06:55] LABS: Basophils Percent Auto 0.3 % (0-2); Eosinophils Percent Auto 0.2 % (0-4); Hematocrit 43.8 % (42.0-52.0); Hemoglobin 14.6 g/dl (14.0-18.0); Imm Gran Abs Auto 0.04 X10*3/uL (0.00-0.03); Imm Gran Pct Auto 0.4 % (0.0-0.4); Lymphocytes Absolute Auto 1.5 X10*3/uL (1.2-4.9); Lymphocytes Percent Auto 14.1 % (20-40); Mean Corpuscular HGB Conc 33.3 g/dl (31.0-36.0); Mean Corpuscular Hemoglobin 28.3 pg (27.0-33.0); Mean Corpuscular Volume 84.9 fL (80.0-98.0); Mean Platelet Volume 9.4 fL (9.4-12.4); Monocytes Absolute Auto 1.1 X10*3/uL (0.1-1.2); Monocytes Percent Auto 10.1 % (2-11); Neutrophils Absolute Auto 7.8 x10*3/uL (2.0-8.3); Neutrophils Percent Auto 74.9 % (45-73); Platelet Count 272 X10*3/uL (160-400); Red Blood Count 5.16 X10*6/uL (4.60-5.80); White Blood Count 10.4 X10*3/uL (4.8-10.8)
[2024-09-15 07:21] LABS: Anion Gap 13 (12-20); Blood Urea Nitrogen 20 mg/dL (9-16); Carbon Dioxide 24 mmol/L (22-29); Chloride 103 mmol/L (96-108); Creatinine Clr Calc Pharmacy 101.2; Estimated Glomerular Filt Rate > 60; Glucose Fasting 120 mg/dL (60-99); Glucose Random 120 mg/dL (60-115); Potassium 4.1 mmol/L (3.3-5.1); Sodium 136 mmol/L (135-145)
[2024-09-15] MEDS: Albuterol/Iprat 2.5/0.5MG 3 ML AMPUL.NEB INHALE ×3 (07:29→21:20)
--- NOTE | 2024-09-15 07:33 | PC.NURSE ---
pt receiving breathing tx via RT at this time.
[2024-09-15] MEDS: Azithromycin 250 MG TABLET PO (07:54)
[2024-09-15] MEDS: 0.9 % Sodium Chloride Flush 3 ML SYRINGE IVFLUSH ×3 (07:55→20:37)
[2024-09-15] MEDS: predniSONE 20 MG TABLET 40 MG PO (08:19)
[2024-09-15] MEDS: cloNIDine HCL 0.1 MG TABLET 0.3 MG PO ×3 (08:19→20:32)
[2024-09-15] MEDS: Fluticasone/Umeclidinium/Vilanterol 200/62.5/25 BLST.W.DEV 1 PUFF INHALE (08:20)
[2024-09-15] MEDS: Albuterol Sulfate 90 MCG 8 GM INHALER 2 PUFF INHALE (08:20)
--- NOTE | 2024-09-15 09:14 | PC.NURSE ---
attempted to wean pt off of O2 per provider order. pt noted to desat to 85% on 2L via NC. pt titrated back up to 4L via NC - satting @ 87%. pt then re-titrated to 6L via NC - O2 @ 89%. no sob/wob noted. respirations even/unlabored. pt positioned upright to promote patent airway. otherwise vss and up to date. nsr on the child monitor. plan of care ongoing. call bermudez placed within reach.
--- NOTE | 2024-09-15 09:30 | PC.NURSE ---
pt having addiction medicine consult completed w/ gabi Clifton RN at this time. plan of care ongoing.
--- NOTE | 2024-09-15 09:51 | MHC.RECOVRN ---
Met with pt in ED18 after receiving Addiction Medicine consult for pt on methadone, still using. Pt sitting in bed, eyes closed, wakes to voice. Pt requesting methadone, reports he had been to [facility] a few months ago and was receiving 120 mg. T/w spoke with nursing at [facility], last dose February 09, 2024, 60 mg. Pt reports heroin/fentanyl use, 3 bundles daily, IV and cocaine, INH, every 2-3 days, not that much. Reports last use yesterday. Denies other substances. Pt received 60 mg methadone yesterday morning while in the ED. Pt currently reports withdrawal symptoms including upset stomach, crawling out of my skin, feeling cold, appears diaphoretic, pupils dilated. Pt denies other questions or concerns at this time. Discussed with Samra Muñiz APRN.
--- NOTE | 2024-09-15 09:51 | MHC.CLN ---
Addendum entered by Clotilde Lopez RD 09/15/24 15:53: SEE CLINICAL NUTRITION ASSESSMENT 09/15/24. Original Note: NUTRITION PATIENT WITH RSV, SEPSIS, AND MALNUTRITION. DIET=REGULAR. BMI=18.3. HX IVDU. ADDING ENSURE TID TO PROVIDE 1050 KCALS, 60 G PROTEIN. CLINICAL NUTRITION ASSESSMENT TO BE COMPLETED UPON ADM TO UNIT.
--- NOTE | 2024-09-15 10:06 | PC.NURSE ---
pt becoming agitated/verbally aggressive towards staff d/t the fact that pt has not received his methadone dose yet. pt was already seen by addiction medicine and aware of plan of care moving forward. pt constantly ringing call bermudez after call bermudez has been answered every time stating that, this is neglect you need to give me my methadone now! pt once again notified/aware that medication will be administered when it is ordered.
[2024-09-15] MEDS: methADONE HCl 20 MG/2 ML ORAL.CONC 30 MG PO ×2 (11:11→13:54)
--- NOTE | 2024-09-15 11:11 | PC.NURSE ---
per Samra Muñiz, 30mg methadone administered at this time. if pt maintains SPO2, additional 30mg will be administered in a few hours. pt currently maintaining SPO2 w/o difficulty at this time. remains on 4L via NC. no sob/wob noted. respirations even/unlabored. otherwise vss and up to date. nsr on the athletic monitor. pt pending bed assignment. plan of care ongoing. call bermudez placed within reach.
--- NOTE | 2024-09-15 12:36 | MHC.CM.PN ---
PT ADMITTED WITH RSV, SLEEPING ON APPROACH CM ATTEMPTED TO CALL PTS PRIMARY CONTACT, [place] [phone] VM MESSAGE LEFT REQUESTING RETURN CALL PER EMR, PT LIVES WITH GF AND IS ACTIVE WITH METHADONE TREATMENT NO HCP ON FILE PCP: [facility] TBD: ? HOME NO SERVICES TRANSPORT TBD
--- NOTE | 2024-09-15 12:36 | PC.NURSE ---
pt receiving breathing tx via RT at this time. inpatient RN doing bedside assessment at this time.
--- NOTE | 2024-09-15 13:54 | PC.NURSE ---
pt maintaining SPO2 w/o difficulty. pt remains on 4L via NC. additional 30mg methadone administered per provider order.
--- NOTE | 2024-09-15 14:21 | HO.ADDICTCON ---
History of Present Illness Date of Service: 09/15/24 Chief Complaint: RSV, COPD Exacerbation, Hypoxia Sources of Information: patient interviewed and chart reviewed HPI Narrative: Patient is a 59 year old male medically admitted with COPD exacerbation secondary to RSV Upon admission patient reporting OUD, and requesting methadone. Per notes, he stated he had been taking methadone 120mg QD Unable to verify dose, methadone 60mg was ordered and administered with + effect. (09/14) Patient seen today in ED bed 19 as he was awaiting transfer to medical floor. Methadone 30mg administered earlier as patient was noted to desat, therefore lower dose administered to be able to monitor for any further desat. He is awake, alert, and appearing anxious. No restlessness, diaphoresis or piloerection noted. He states he does not want to feel sick and is nervous about not having withdrawals treated. T/w provided reassurance that withdrawals would be treated and explained rationale for one time low dose and plan to administer remainder of dose shortly Patient verbalized understanding. Most recent substance use history obtained by [employer] earlier in AM and reviewed. Methadone verified. Last dose January 2024, 60mg daily. Medical Evaluation Reviewed: Yes Review of Systems Constitutional: Reports as per HPI and Reports malaise Diagnostics Vital Signs (24Hr): Vital Signs - 24 hr 09/14/24 16:42 09/14/24 19:05 09/14/24 19:48 Temperature 97.2 F 97.4 F Pulse Rate 70 82 83 Respiratory Rate 20 18 18 Blood Pressure 129/80 134/75 Pulse Oximetry 95 93 Oxygen Delivery Method Nasal Cannula Nasal Cannula Oxygen Flow Rate 6 6 09/14/24 20:07 09/14/24 20:09 09/15/24 00:36 Temperature 98.6 F Pulse Rate 88 74 Respiratory Rate 17 16 22 H Blood Pressure 121/75 127/75 Pulse Oximetry 94 95 Oxygen Delivery Method Nasal Cannula Nasal Cannula Oxygen Flow Rate 4 5 09/15/24 00:51 09/15/24 04:48 09/15/24 05:48 Temperature 97.9 F Pulse Rate 80 82 71 Respiratory Rate 15 20 20 Blood Pressure 134/85 114/73 147/90 H Pulse Oximetry 94 93 94 Oxygen Delivery Method Aerosol Mask Nasal Cannula Nasal Cannula Oxygen Flow Rate 6 5 5 09/15/24 07:31 09/15/24 09:08 09/15/24 09:10 Temperature 98.5 F Pulse Rate 83 95 Respiratory Rate 20 18 Blood Pressure 121/76 Pulse Oximetry 86 L 87 L Oxygen Delivery Method Nasal Cannula Nasal Cannula Oxygen Flow Rate 2 4 09/15/24 09:14 09/15/24 10:47 09/15/24 11:11 Temperature 97.7 F Pulse Rate 86 89 Respiratory Rate 16 18 Blood Pressure 113/74 130/82 Pulse Oximetry 89 L 91 L 92 Oxygen Delivery Method Nasal Cannula Nasal Cannula Nasal Cannula Oxygen Flow Rate 6 6 2 09/15/24 12:03 09/15/24 12:33 09/15/24 13:26 Temperature 97.8 F Pulse Rate 80 80 92 Respiratory Rate 18 18 18 Blood Pressure 116/84 122/67 Pulse Oximetry 91 L 90 L Oxygen Delivery Method Nasal Cannula Nasal Cannula Oxygen Flow Rate 4 4 BMI result Body Mass Index 18.3 Labs 09/15/24 05:46 09/15/24 05:46 Labs: Laboratory Results - last 48 hr 09/14/24 09/14/24 09/14/24 04:34 05:27 06:45 WBC 8.3 RBC 4.76 Hgb 13.7 L Hct 40.8 L MCV 85.7 MCH 28.8 MCHC 33.6 RDW 13.8 Plt Count 243 MPV 8.5 L Immature Gran % (Auto) 0.2 Neut % (Auto) 78.2 H Lymph % (Auto) 12.7 L [place] % (Auto) 8.5 Eos % (Auto) 0.2 Baso % (Auto) 0.2 Lymph # (Auto) 1.1 L [place] # (Auto) 0.7 Eos # (Auto) 0.0 Baso # (Auto) 0.0 Abs Immat Gran (auto) 0.02 Absolute Neuts (auto) 6.5 Absolute Nucleated RBC 0.000 Nucleated RBC % (auto) 0.0 VBG pH 7.46 H VBG pCO2 38 VBG pO2 73 VBG HCO3 27 H VBG O2 Saturation 96.0 VBG Base Excess 4.0 Sodium 135 Potassium 4.4 Chloride 100 Carbon Dioxide 24 Anion Gap 15 BUN 15 Creatinine 0.68 Estim Creat Clear Calc 90.8 Estimated GFR > 60 Random Glucose 112 Fasting Glucose Lactic Acid 1.0 Calcium 8.8 D Total Bilirubin 0.5 AST 33 ALT 17 Alkaline Phosphatase 73 Troponin I High Sens 10.3 Total Protein 7.5 Albumin 3.9 Urine Color Yellow Urine Appearance Clear Urine pH 7.0 Ur Specific [place] 1.015 Urine Protein Trace Urine Glucose (UA) Negative Urine Ketones Negative Urine Blood Negative Urine Nitrite Negative Ur Leukocyte Esterase Negative Urine RBC 0-2 Urine WBC 0-5 Ur Squamous Epith Cells 0-2 Urine Bacteria None Seen Hyaline Casts 0-2 Urine Opiates Screen POSITIVE H Ur Buprenorphine Scrn Not Detected Ur Oxycodone Screen Not Detected Urine Methadone Screen Not Detected Urine Fentanyl Screen POSITIVE H Ur Barbiturates Screen Not Detected Ur Phencyclidine Scrn Not Detected Ur Amphetamines Screen Not Detected U Benzodiazepines Scrn Not Detected Urine Cocaine Screen POSITIVE H U Marijuana (THC) Screen Not Detected Influenza Type A (PCR) NEGATIVE Influenza Type B (PCR) NEGATIVE RSV RNA Qual (PCR) POSITIVE A SARS-CoV-2 RNA (RT-PCR) NEGATIVE 09/15/24 05:46 WBC 10.4 RBC 5.16 Hgb 14.6 Hct 43.8 MCV 84.9 MCH 28.3 MCHC 33.3 RDW 14.0 Plt Count 272 MPV 9.4 Immature Gran % (Auto) 0.4 Neut % (Auto) 74.9 H Lymph % (Auto) 14.1 L [place] % (Auto) 10.1 Eos % (Auto) 0.2 Baso % (Auto) 0.3 Lymph # (Auto) 1.5 [place] # (Auto) 1.1 Eos # (Auto) 0.0 Baso # (Auto) 0.0 Abs Immat Gran (auto) 0.04 H Absolute Neuts (auto) 7.8 Absolute Nucleated RBC 0.000 Nucleated RBC % (auto) 0.0 VBG pH VBG pCO2 VBG pO2 VBG HCO3 VBG O2 Saturation VBG Base Excess Sodium 136 Potassium 4.1 Chloride 103 Carbon Dioxide 24 Anion Gap 13 BUN 20 H Creatinine 0.61 Estim Creat Clear Calc 101.2 Estimated GFR > 60 Random Glucose 120 H Fasting Glucose 120 H Lactic Acid Calcium 9.0 Total Bilirubin AST ALT Alkaline Phosphatase Troponin I High Sens Total Protein Albumin Urine Color Urine Appearance Urine pH Ur Specific [place] Urine Protein Urine Glucose (UA) Urine Ketones Urine Blood Urine Nitrite Ur Leukocyte Esterase Urine RBC Urine WBC Ur Squamous Epith Cells Urine Bacteria Hyaline Casts Urine Opiates Screen Ur Buprenorphine Scrn Ur Oxycodone Screen Urine Methadone Screen Urine Fentanyl Screen Ur Barbiturates Screen Ur Phencyclidine Scrn Ur Amphetamines Screen U Benzodiazepines Scrn Urine Cocaine Screen U Marijuana (THC) Screen Influenza Type A (PCR) Influenza Type B (PCR) RSV RNA Qual (PCR) SARS-CoV-2 RNA (RT-PCR) Mental Status Exam Mental Status Exam Patient Orientation: Person, Place, Time and Situation Level of Consciousness: Awake, Appropriate and Alert Patient Behavior: Appropriate and Anxious Mood Description: Anxious Affect Description: Anxious Speech Pattern: Clear and Perseverating Thought Content: positive for Intact Medications Medications Current Medications Acetaminophen (Acetaminophen 325 Mg Tablet) 975 mg PO Q6H PRN PRN Reason: Pain, Mild 1-3,fever,headache Albuterol Sulfate (Albuterol Sulfate 90 Mcg 8 Gm Inhaler) 2 puff INHALE QID [facility] Last Admin: 09/15/24 12:31 Dose: Not Given Albuterol/Ipratropium (Albuterol/Iprat 2.5/0.5mg 3 Ml Ampul.Neb) 3 ml INHALE RQ4H WHILE AWAKE [facility] Last Admin: 09/15/24 12:33 Dose: 3 ml Calcium Carbonate (Calcium Carbonate 750 Mg Tab.Chew) 750 mg PO Q4H PRN PRN Reason: Heartburn Clonidine HCl (Clonidine Hcl 0.1 Mg Tablet) 0.3 mg PO TID [facility]; Protocol Last Admin: 09/15/24 08:19 Dose: 0.3 mg Enoxaparin Sodium (Enoxaparin Sodium 40 Mg/0.4 Ml Syringe) 40 mg SUBCUT Q24H [facility] Last Admin: 09/15/24 05:52 Dose: 40 mg Fluticasone/Umeclidinium/Vilanterol (Fluticasone/Umeclidinium/Vilanterol 200/62.5/25 Blst.W.Dev) 1 puff INHALE RDAILY [facility] Last Admin: 09/15/24 08:20 Dose: 1 puff Hydromorphone HCl (Hydromorphone Hcl 1 Mg/Ml Syringe) 1 mg IVPUSH Q3H PRN; Protocol PRN Reason: Pain, Severe (Pain Scale 7-10) Last Admin: 09/15/24 05:50 Dose: 1 mg Azithromycin 500 mg/ Sodium (Chloride) 250 mls @ 125 mls/hr IV Q24H [facility] Last Infusion: 09/15/24 06:10 Dose: Infused Magnesium Hydroxide (Milk Of Magnesia 30 Ml Oral.Susp) 30 ml PO DAILY PRN PRN Reason: Constipation Melatonin (Melatonin 3 Mg Tablet) 6 mg PO BEDTIME PRN PRN Reason: Insomnia Ondansetron HCl (Ondansetron Hcl 4 Mg/2 Ml Vial) 4 mg IVPUSH Q8H PRN PRN Reason: Nausea and Vomiting Last Admin: 09/15/24 00:50 Dose: 4 mg Prednisone (Prednisone 20 Mg Tablet) 40 mg PO DAILY [facility] Last Admin: 09/15/24 08:19 Dose: 40 mg Sodium Chloride (0.9 % Sodium Chloride Flush 3 Ml Syringe) 3 ml IVFLUSH QSHIFT [facility] Last Admin: 09/15/24 07:55 Dose: 3 ml Allergies Allergies Allergy/AdvReac Type Severity Reaction Status Date / Time No Known Allergies Allergy Verified 09/14/24 04:17 Assessment & Plan Assessment & Plan (1) Opioid use disorder: Status: Acute Code(s): F11.90 - Opioid use, unspecified, uncomplicated Assessment and Plan: continue methadone --increase to 65mg in AM (09/16) will continue to follow [employer] to send referral to [facility] for continuation of treatment upon discharge Total time managing care of this patient today __35__ minutes. PMFSH Past Medical History Medical History Opiate abuse, continuous Pneumonia COVID-19 determined by clinical diagnostic criteria COPD (chronic obstructive pulmonary disease) COPD (chronic obstructive pulmonary disease) Social History Social History Household Members: Significant Other Household Members Other:: homeless Housing: House Do you presently have visiting nurse or other home services: No Alcohol intake: never Patient Tobacco Use Status: Current everyday Tobacco user Tobacco use type: Cigarette Substance Use Type: Heroin service: No Current occupational status: disabled
--- NOTE | 2024-09-15 14:31 | P.PNIM_ITS ---
Subjective Subjective Date of Service: 09/15/24 Interval History: f/u on RSV related acute hypoxic respiatory failure Overal improving Physical Exam 2 Vital Signs: Vital Signs: Last Vital Signs Temp 97.8 F 09/15/24 13:26 Pulse 92 09/15/24 13:26 Resp 18 09/15/24 13:26 BP 122/67 09/15/24 13:26 Pulse Ox 90 L 09/15/24 13:26 O2 Del Method Nasal Cannula 09/15/24 13:26 O2 Flow Rate 4 09/15/24 13:26 Oxygen Flow Rate 4 09/14/24 04:12 BMI result Body Mass Index 18.3 General: AO X 3, no acute distress, emaciated Resp: CTA bilateral CVS: S1,S2,RRR GI: +BS, NT, no distention Skin: No rash Neuro: motor grossly intact Psych: appropriate affect Objective Data Active Medications Acetaminophen (Acetaminophen 325 Mg Tablet) 975 mg PO Q6H PRN PRN Reason: Pain, Mild 1-3,fever,headache Albuterol Sulfate (Albuterol Sulfate 90 Mcg 8 Gm Inhaler) 2 puff INHALE QID [facility] Last Admin: 09/15/24 12:31 Dose: Not Given Documented By: LAVINIA Non-Admin Reason: Duplicate Order Albuterol/Ipratropium (Albuterol/Iprat 2.5/0.5mg 3 Ml Ampul.Neb) 3 ml INHALE RQ4H WHILE AWAKE [facility] Last Admin: 09/15/24 12:33 Dose: 3 ml Documented By: LAVINIA Calcium Carbonate (Calcium Carbonate 750 Mg Tab.Chew) 750 mg PO Q4H PRN PRN Reason: Heartburn Clonidine HCl (Clonidine Hcl 0.1 Mg Tablet) 0.3 mg PO TID [facility]; Protocol Last Admin: 09/15/24 08:19 Dose: 0.3 mg Documented By: TORRES Enoxaparin Sodium (Enoxaparin Sodium 40 Mg/0.4 Ml Syringe) 40 mg SUBCUT Q24H [facility] Last Admin: 09/15/24 05:52 Dose: 40 mg Documented By: MARY Fluticasone/Umeclidinium/Vilanterol (Fluticasone/Umeclidinium/Vilanterol 200/62.5/25 Blst.W.Dev) 1 puff INHALE RDAILY [facility] Last Admin: 09/15/24 08:20 Dose: 1 puff Documented By: TORRES Hydromorphone HCl (Hydromorphone Hcl 1 Mg/Ml Syringe) 1 mg IVPUSH Q3H PRN; Protocol PRN Reason: Pain, Severe (Pain Scale 7-10) Last Admin: 09/15/24 05:50 Dose: 1 mg Documented By: MARY Azithromycin 500 mg/ Sodium (Chloride) 250 mls @ 125 mls/hr IV Q24H [facility] Last Infusion: 09/15/24 06:10 Dose: Infused Documented By: MARY Magnesium Hydroxide (Milk Of Magnesia 30 Ml Oral.Susp) 30 ml PO DAILY PRN PRN Reason: Constipation Melatonin (Melatonin 3 Mg Tablet) 6 mg PO BEDTIME PRN PRN Reason: Insomnia Ondansetron HCl (Ondansetron Hcl 4 Mg/2 Ml Vial) 4 mg IVPUSH Q8H PRN PRN Reason: Nausea and Vomiting Last Admin: 09/15/24 00:50 Dose: 4 mg Documented By: MARY Prednisone (Prednisone 20 Mg Tablet) 40 mg PO DAILY [facility] Last Admin: 09/15/24 08:19 Dose: 40 mg Documented By: TORRES Sodium Chloride (0.9 % Sodium Chloride Flush 3 Ml Syringe) 3 ml IVFLUSH QSHIFT [facility] Last Admin: 09/15/24 07:55 Dose: 3 ml Documented By: TORRES Labs 09/15/24 05:46 09/15/24 05:46 Labs: Laboratory Results - last 24 hr 09/15/24 05:46 MCV 84.9 MCH 28.3 MCHC 33.3 RDW 14.0 Plt Count 272 MPV 9.4 Immature Gran % (Auto) 0.4 Neut % (Auto) 74.9 H Lymph % (Auto) 14.1 L [place] % (Auto) 10.1 Eos % (Auto) 0.2 Baso % (Auto) 0.3 Lymph # (Auto) 1.5 [place] # (Auto) 1.1 Eos # (Auto) 0.0 Baso # (Auto) 0.0 Abs Immat Gran (auto) 0.04 H Absolute Neuts (auto) 7.8 Absolute Nucleated RBC 0.000 Nucleated RBC % (auto) 0.0 Anion Gap 13 Estim Creat Clear Calc 101.2 Estimated GFR > 60 Random Glucose 120 H Fasting Glucose 120 H Calcium 9.0 Microbiology Microbiology Results: Microbiology 09/14/24 05:38 Blood Culture - Preliminary Blood - Venous No growth after 24 hours. 09/14/24 05:22 Blood Culture - Preliminary Blood - Venous No growth after 24 hours. Assessment and Plan (1) Lung mass: Status: Acute Assessment and Plan: 59-year-old male with a past medical history significant for COPD and substance abuse (IV cocaine and heroin), who presented to the ED due to shortness of breath and cough, found on the street. viral Sepsis and hypoxia secondary to RSV causing COPD exacerbation, nl wbc, cultures negative. continue to be hypoxic and requiring O2 -continue supportive care, O2 as needed, continue Prednisone, bronchodilators by Neb, empiric Abx Zithroo, consider repeating CXR or CT chest if not improving GAEL/IVDU (+fentanyl, cocaine, opioid and no methadone detected), he says he's been off methadone for months - patient threatened to leave multiple times if he did not receive methadone-- -addiction med addresing methadone issue, he Malnutrition - consider nutrition consult once patient more cooperative Full code VTE prophylaxis: Lovenox Patient with sepsis and hypoxia secondary to RSV and COPD exacerbation, requiring admission for IV antibiotics, breathing treatments and monitoring for at least 2 midnights stay. Quality Stroke Does the patient have a stroke diagnosis?: No VTE Prior VTE?: No VTE Risk Level:: Medical - moderate - high VTE Device Contraindication: Treatment Not Indicated VTE Drug Contraindication: N/A - Med Ordered
--- NOTE | 2024-09-15 18:01 | PC.NURSE ---
Per Dr. Agarwal - hold on administering flu vaccine until patient is clinically better and ready for discharge
[2024-09-15 20:06] LABS: Glucose, Whole Blood 138 mg/dL (60-115)
[2024-09-15] MEDS: Acetaminophen 325 MG TABLET 975 MG PO (21:41)
[2024-09-16] VITALS (9 sets, daily range): BP systolic 99–126; BP diastolic 55–75; PULSE 71–84; RESP 16–18; TEMP 36.3–36.7; O2SAT 85–93
[2024-09-16] MEDS: Azithromycin 500 MG in 0.9 % Sodium Chloride 250 ML 125 MG IV (05:15)
[2024-09-16] MEDS: Enoxaparin Sodium 40 MG/0.4 ML SYRINGE SUBCUT (05:15)
[2024-09-16] MEDS: 0.9 % Sodium Chloride Flush 3 ML SYRINGE IVFLUSH ×3 (07:38→21:08)
[2024-09-16 07:58] LABS: MANUAL DIFF FLAG NO
[2024-09-16 08:12] LABS: Basophils Percent Auto 0.3 % (0-2); Eosinophils Absolute Auto 0.1 X10*3/uL (0.0-0.4); Eosinophils Percent Auto 1.9 % (0-4); Hematocrit 42.6 % (42.0-52.0); Hemoglobin 13.8 g/dl (14.0-18.0); Imm Gran Abs Auto 0.03 X10*3/uL (0.00-0.03); Imm Gran Pct Auto 0.4 % (0.0-0.4); Mean Corpuscular HGB Conc 32.4 g/dl (31.0-36.0); Mean Corpuscular Hemoglobin 28.4 pg (27.0-33.0); Mean Corpuscular Volume 87.7 fL (80.0-98.0); Mean Platelet Volume 9.3 fL (9.4-12.4); Monocytes Absolute Auto 0.7 X10*3/uL (0.1-1.2); Monocytes Percent Auto 9.8 % (2-11); Neutrophils Absolute Auto 4.5 x10*3/uL (2.0-8.3); Neutrophils Percent Auto 60.6 % (45-73); Platelet Count 299 X10*3/uL (160-400); Red Blood Count 4.86 X10*6/uL (4.60-5.80); Red Cell Distribution Width 14.3 % (11.0-16.0); White Blood Count 7.4 X10*3/uL (4.8-10.8)
[2024-09-16 08:35] LABS: Anion Gap 13 (12-20); Blood Urea Nitrogen 31 mg/dL (9-16); Carbon Dioxide 27 mmol/L (22-29); Chloride 102 mmol/L (96-108); Estimated Glomerular Filt Rate > 60; Potassium 3.9 mmol/L (3.3-5.1); Sodium 138 mmol/L (135-145)
[2024-09-16 08:36] LABS: Calcium 9.3 mg/dL (8.4-10.2); Glucose Random 103 mg/dL (60-115)
[2024-09-16] MEDS: methADONE HCl 20 MG/2 ML ORAL.CONC 65 MG PO (08:40)
[2024-09-16] MEDS: predniSONE 20 MG TABLET 40 MG PO (08:41)
[2024-09-16] MEDS: cloNIDine HCL 0.1 MG TABLET 0.3 MG PO ×2 (08:41→21:08)
--- NOTE | 2024-09-16 10:21 | P.PNADD_ITS ---
Subjective Subjective Date of Service: 09/16/24 Reason For Visit: RSV, COPD Exacerbation, Hypoxia Medical Problems Affecting Mental Status: No Interim History: Patient seen in follow up for OUD and withdrawal management Received methadone 60 mg yesterday and 65mg this morning Reports he slept well overall, in terms of withdrawal sx. Appetite and anxiety improved Denies any withdrawal sx Discussed previous methadone dosing. He reports that he was engaged in treatment with [facility] in [place], but was then incarcerated for some time which is when methadone dose was increased to 120mg. Still unclear when this was, regardless dose will be titrated as appropriate during this admission He would like to return to [facility] in [place] Review of Systems Constitutional: Reports as per [facility] Mental Status Exam Mental Status Exam Patient Appearance: Appropriate Patient Orientation: Person, Place, Time and Situation Level of Consciousness: Awake, Appropriate and Alert Patient Behavior: Appropriate and Talkative Mood Description: Calm Speech Pattern: Clear Thought Process: Intact Thought Content: positive for Intact Judgement: Good Diagnostics Vital Signs (24Hr): Vital Signs - 24 hr 09/15/24 10:47 09/15/24 11:11 09/15/24 12:03 Temperature 97.7 F Pulse Rate 86 89 80 Respiratory Rate 16 18 18 Blood Pressure 113/74 130/82 116/84 Pulse Oximetry 91 L 92 91 L Oxygen Delivery Method Nasal Cannula Nasal Cannula Nasal Cannula Oxygen Flow Rate 6 2 4 09/15/24 12:33 09/15/24 13:26 09/15/24 15:06 Temperature 97.8 F 98.6 F Pulse Rate 80 92 88 Respiratory Rate 18 18 20 Blood Pressure 122/67 114/78 Pulse Oximetry 90 L 91 L Oxygen Delivery Method Nasal Cannula Nasal Cannula Oxygen Flow Rate 4 4 09/15/24 15:40 09/15/24 16:54 09/15/24 19:42 Temperature 97.9 F 97.4 F 97.6 F Pulse Rate 83 84 84 Respiratory Rate 16 17 18 Blood Pressure 111/73 118/74 109/60 Pulse Oximetry 91 L 95 94 Oxygen Delivery Method Nasal Cannula Nasal Cannula Nasal Cannula Oxygen Flow Rate 2 2 2 09/15/24 21:20 09/15/24 23:16 09/16/24 03:12 Temperature 98.7 F 97.9 F Pulse Rate 94 62 71 Respiratory Rate 18 16 16 Blood Pressure 100/56 L 123/75 Pulse Oximetry 93 93 Oxygen Delivery Method Nasal Cannula Nasal Cannula Oxygen Flow Rate 3 3 09/16/24 08:00 09/16/24 08:41 09/16/24 09:39 Temperature 97.6 F Pulse Rate 74 Respiratory Rate 18 Blood Pressure 126/75 126/75 Pulse Oximetry 92 85 L Oxygen Delivery Method Nasal Cannula Room Air Oxygen Flow Rate 3 BMI result Body Mass Index 18.3 Labs 09/17/24 05:15 09/17/24 05:15 Labs: Laboratory Results - last 48 hr 09/15/24 09/15/24 09/16/24 05:46 19:58 05:36 WBC 10.4 7.4 RBC 5.16 4.86 Hgb 14.6 13.8 L Hct 43.8 42.6 MCV 84.9 87.7 MCH 28.3 28.4 MCHC 33.3 32.4 RDW 14.0 14.3 Plt Count 272 299 MPV 9.4 9.3 L Immature Gran % (Auto) 0.4 0.4 Neut % (Auto) 74.9 H 60.6 Lymph % (Auto) 14.1 L 27.0 [place] % (Auto) 10.1 9.8 Eos % (Auto) 0.2 1.9 Baso % (Auto) 0.3 0.3 Lymph # (Auto) 1.5 2.0 [place] # (Auto) 1.1 0.7 Eos # (Auto) 0.0 0.1 Baso # (Auto) 0.0 0.0 Abs Immat Gran (auto) 0.04 H 0.03 Absolute Neuts (auto) 7.8 4.5 Absolute Nucleated RBC 0.000 0.000 Nucleated RBC % (auto) 0.0 0.0 Sodium 136 138 Potassium 4.1 3.9 Chloride 103 102 Carbon Dioxide 24 27 Anion Gap 13 13 BUN 20 H 31 H Creatinine 0.61 0.65 Estim Creat Clear Calc 101.2 95.0 Estimated GFR > 60 > 60 POC Glucose 138 H Random Glucose 120 H 103 Fasting Glucose 120 H Calcium 9.0 9.3 Medications Medications Current Medications Acetaminophen (Acetaminophen 325 Mg Tablet) 975 mg PO Q6H PRN PRN Reason: Pain, Mild 1-3,fever,headache Last Admin: 09/15/24 21:41 Dose: 975 mg Albuterol Sulfate (Albuterol Sulfate 90 Mcg 8 Gm Inhaler) 2 puff INHALE QID [facility] Last Admin: 09/16/24 08:46 Dose: Not Given Albuterol/Ipratropium (Albuterol/Iprat 2.5/0.5mg 3 Ml Ampul.Neb) 3 ml INHALE RQ4H WHILE AWAKE [facility] Last Admin: 09/16/24 08:42 Dose: Not Given Calcium Carbonate (Calcium Carbonate 750 Mg Tab.Chew) 750 mg PO Q4H PRN PRN Reason: Heartburn Clonidine HCl (Clonidine Hcl 0.1 Mg Tablet) 0.3 mg PO TID [facility]; Protocol Last Admin: 09/16/24 08:41 Dose: 0.3 mg Enoxaparin Sodium (Enoxaparin Sodium 40 Mg/0.4 Ml Syringe) 40 mg SUBCUT Q24H [facility] Last Admin: 09/16/24 05:15 Dose: 40 mg Fluticasone/Umeclidinium/Vilanterol (Fluticasone/Umeclidinium/Vilanterol 200/62.5/25 Blst.W.Dev) 1 puff INHALE RDAILY [facility] Last Admin: 09/15/24 08:20 Dose: 1 puff Hydromorphone HCl (Hydromorphone Hcl 1 Mg/Ml Syringe) 1 mg IVPUSH Q3H PRN; Protocol PRN Reason: Pain, Severe (Pain Scale 7-10) Last Admin: 09/15/24 05:50 Dose: 1 mg Azithromycin 500 mg/ Sodium (Chloride) 250 mls @ 125 mls/hr IV Q24H [facility] Last Infusion: 09/16/24 07:50 Dose: Infused Magnesium Hydroxide (Milk Of Magnesia 30 Ml Oral.Susp) 30 ml PO DAILY PRN PRN Reason: Constipation Melatonin (Melatonin 3 Mg Tablet) 6 mg PO BEDTIME PRN PRN Reason: Insomnia Methadone HCl (Methadone Hcl 20 Mg/2 Ml Oral.Conc) 65 mg PO DAILY@0800 [facility] Last Admin: 09/16/24 08:40 Dose: 65 mg Ondansetron HCl (Ondansetron Hcl 4 Mg/2 Ml Vial) 4 mg IVPUSH Q8H PRN PRN Reason: Nausea and Vomiting Last Admin: 09/15/24 00:50 Dose: 4 mg Prednisone (Prednisone 20 Mg Tablet) 40 mg PO DAILY [facility] Last Admin: 09/16/24 08:41 Dose: 40 mg Sodium Chloride (0.9 % Sodium Chloride Flush 3 Ml Syringe) 3 ml IVFLUSH QSHIFT [facility] Last Admin: 09/16/24 07:38 Dose: 3 ml Allergies Allergies Allergy/AdvReac Type Severity Reaction Status Date / Time No Known Allergies Allergy Verified 09/14/24 04:17 Assessment & Plan Assessment & Plan (1) Opioid use disorder: Status: Acute Code(s): F11.90 - Opioid use, unspecified, uncomplicated Assessment and Plan: * continue methadone at 65mg * Total time managing care of this patient today ____ minutes.
--- NOTE | 2024-09-16 12:53 | HO.PM.IMPN ---
Subjective Subjective Date of Service: 09/16/24 Interval History: f/u on RSV related acute hypoxic respiatory failure with hypoxia he is feeling better but he desats signficantly without oxygen Physical Exam Vital Signs: Vital Signs: Last Vital Signs Temp 97.3 F 09/16/24 11:52 Pulse 72 09/16/24 11:52 Resp 17 09/16/24 11:52 BP 99/58 L 09/16/24 11:52 Pulse Ox 92 09/16/24 11:52 O2 Del Method Nasal Cannula 09/16/24 11:52 O2 Flow Rate 2 09/16/24 11:52 Oxygen Flow Rate 4 09/14/24 04:12 BMI result Body Mass Index 18.3 General: AO X 3, no acute distress, emaciated Resp: CTA bilateral CVS: S1,S2,RRR GI: +BS, NT, no distention Skin: No rash Neuro: motor grossly intact Psych: appropriate affect Objective Data Active Medications Acetaminophen (Acetaminophen 325 Mg Tablet) 975 mg PO Q6H PRN PRN Reason: Pain, Mild 1-3,fever,headache Last Admin: 09/15/24 21:41 Dose: 975 mg Documented By: LEELEE Albuterol Sulfate (Albuterol Sulfate 90 Mcg 8 Gm Inhaler) 2 puff INHALE QID [facility] Last Admin: 09/16/24 11:40 Dose: Not Given Documented By: LAVINIA Non-Admin Reason: Duplicate Order Albuterol/Ipratropium (Albuterol/Iprat 2.5/0.5mg 3 Ml Ampul.Neb) 3 ml INHALE RQ4H WHILE AWAKE [facility] Last Admin: 09/16/24 11:40 Dose: Not Given Documented By: LAVINIA Non-Admin Reason: Patient Refused Calcium Carbonate (Calcium Carbonate 750 Mg Tab.Chew) 750 mg PO Q4H PRN PRN Reason: Heartburn Clonidine HCl (Clonidine Hcl 0.1 Mg Tablet) 0.3 mg PO TID [facility]; Protocol Last Admin: 09/16/24 08:41 Dose: 0.3 mg Documented By: LUIS Enoxaparin Sodium (Enoxaparin Sodium 40 Mg/0.4 Ml Syringe) 40 mg SUBCUT Q24H [facility] Last Admin: 09/16/24 05:15 Dose: 40 mg Documented By: LEELEE Fluticasone/Umeclidinium/Vilanterol (Fluticasone/Umeclidinium/Vilanterol 200/62.5/ Blst.W.Dev) 1 puff INHALE RDAILY [facility] Last Admin: 09/16/24 11:40 Dose: Not Given Documented By: LAVINIA Non-Admin Reason: Patient Refused Hydromorphone HCl (Hydromorphone Hcl 1 Mg/Ml Syringe) 1 mg IVPUSH Q3H PRN; Protocol PRN Reason: Pain, Severe (Pain Scale 7-10) Last Admin: 09/15/24 05:50 Dose: 1 mg Documented By: MARY Azithromycin 500 mg/ Sodium (Chloride) 250 mls @ 125 mls/hr IV Q24H [facility] Last Infusion: 09/16/24 07:50 Dose: Infused Documented By: LUIS Magnesium Hydroxide (Milk Of Magnesia 30 Ml Oral.Susp) 30 ml PO DAILY PRN PRN Reason: Constipation Melatonin (Melatonin 3 Mg Tablet) 6 mg PO BEDTIME PRN PRN Reason: Insomnia Methadone HCl (Methadone Hcl 20 Mg/2 Ml Oral.Conc) 65 mg PO DAILY@0800 [facility] Last Admin: 09/16/24 08:40 Dose: 65 mg Documented By: LUIS Co-signed By: BRADEN Ondansetron HCl (Ondansetron Hcl 4 Mg/2 Ml Vial) 4 mg IVPUSH Q8H PRN PRN Reason: Nausea and Vomiting Last Admin: 09/15/24 00:50 Dose: 4 mg Documented By: MARY Prednisone (Prednisone 20 Mg Tablet) 40 mg PO DAILY [facility] Last Admin: 09/16/24 08:41 Dose: 40 mg Documented By: LUIS Sodium Chloride (0.9 % Sodium Chloride Flush 3 Ml Syringe) 3 ml IVFLUSH QSHIFT [facility] Last Admin: 09/16/24 07:38 Dose: 3 ml Documented By: LUIS Labs 09/16/24 05:36 09/16/24 05:36 Labs: Laboratory Results - last 24 hr 09/15/24 09/16/24 19:58 05:36 MCV 87.7 MCH 28.4 MCHC 32.4 RDW 14.3 Plt Count 299 MPV 9.3 L Immature Gran % (Auto) 0.4 Neut % (Auto) 60.6 Lymph % (Auto) 27.0 [place] % (Auto) 9.8 Eos % (Auto) 1.9 Baso % (Auto) 0.3 Lymph # (Auto) 2.0 [place] # (Auto) 0.7 Eos # (Auto) 0.1 Baso # (Auto) 0.0 Abs Immat Gran (auto) 0.03 Absolute Neuts (auto) 4.5 Absolute Nucleated RBC 0.000 Nucleated RBC % (auto) 0.0 Anion Gap 13 Estim Creat Clear Calc 95.0 Estimated GFR > 60 POC Glucose 138 H Random Glucose 103 Calcium 9.3 Microbiology Microbiology Results: Microbiology 09/14/24 05:38 Blood Culture - Preliminary Blood - Venous No growth after 48 hours. 09/14/24 05:22 Blood Culture - Preliminary Blood - Venous No growth after 48 hours. Assessment and Plan (1) Lung mass: Status: Acute Plan 59-year-old male with a past medical history significant for COPD and substance abuse (IV cocaine and heroin), who presented to the ED due to shortness of breath and cough, found on the street. viral Sepsis and acute hypoxia secondary to RSV causing COPD exacerbation, nl wbc, cultures negative. continue to be hypoxic and requiring O2 -continue supportive care, O2 as needed, continue Prednisone, bronchodilators by Neb, empiric Abx Zithroo, consider repeating CXR or CT chest if not improving GAEL/IVDU (+fentanyl, cocaine, opioid and no methadone detected), he says he's been off methadone for months - patient threatened to leave multiple times if he did not receive methadone-- -addiction med has started methadone and adjusting Malnutrition - consider nutrition consult once patient more cooperative Full code VTE prophylaxis: Lovenox Patient with sepsis and hypoxia secondary to RSV and COPD exacerbation, requiring admission for IV antibiotics, breathing treatments and monitoring for at least 2 midnights stay. Quality Stroke Does the patient have a stroke diagnosis?: No VTE Prior VTE?: No VTE Risk Level:: Medical - moderate - high VTE Device Contraindication: Treatment Not Indicated VTE Drug Contraindication: N/A - Med Ordered
[2024-09-16] MEDS: Albuterol/Iprat 2.5/0.5MG 3 ML AMPUL.NEB INHALE (20:20)
[2024-09-17] VITALS (11 sets, daily range): BP systolic 102–122; BP diastolic 62–75; PULSE 74–82; RESP 16–20; TEMP 36.3–37; O2SAT 90–96
[2024-09-17] MEDS: Azithromycin 500 MG in 0.9 % Sodium Chloride 250 ML 125 MG IV (05:47)
[2024-09-17] MEDS: Enoxaparin Sodium 40 MG/0.4 ML SYRINGE SUBCUT (05:48)
[2024-09-17 05:50] LABS: MANUAL DIFF FLAG NO
[2024-09-17 05:57] LABS: Basophils Percent Auto 0.3 % (0-2); Eosinophils Absolute Auto 0.1 X10*3/uL (0.0-0.4); Eosinophils Percent Auto 1.9 % (0-4); Hemoglobin 13.2 g/dl (14.0-18.0); Imm Gran Abs Auto 0.02 X10*3/uL (0.00-0.03); Imm Gran Pct Auto 0.3 % (0.0-0.4); Lymphocytes Absolute Auto 2.1 X10*3/uL (1.2-4.9); Lymphocytes Percent Auto 30.2 % (20-40); Mean Corpuscular Hemoglobin 28.4 pg (27.0-33.0); Mean Platelet Volume 8.8 fL (9.4-12.4); Monocytes Absolute Auto 0.7 X10*3/uL (0.1-1.2); Monocytes Percent Auto 9.9 % (2-11); Neutrophils Absolute Auto 3.9 x10*3/uL (2.0-8.3); Neutrophils Percent Auto 57.4 % (45-73); Platelet Count 280 X10*3/uL (160-400); Red Blood Count 4.65 X10*6/uL (4.60-5.80); Red Cell Distribution Width 14.3 % (11.0-16.0); White Blood Count 6.9 X10*3/uL (4.8-10.8)
[2024-09-17 06:08] LABS: Anion Gap 11 (12-20); Blood Urea Nitrogen 26 mg/dL (9-16); Calcium 9.1 mg/dL (8.4-10.2); Carbon Dioxide 28 mmol/L (22-29); Chloride 101 mmol/L (96-108); Creatinine Clr Calc Pharmacy 101.2; Estimated Glomerular Filt Rate > 60; Glucose Random 91 mg/dL (60-115); Potassium 4.1 mmol/L (3.3-5.1); Sodium 136 mmol/L (135-145)
[2024-09-17] MEDS: Albuterol/Iprat 2.5/0.5MG 3 ML AMPUL.NEB INHALE ×3 (07:37→19:36)
[2024-09-17] MEDS: Fluticasone/Umeclidinium/Vilanterol 200/62.5/25 BLST.W.DEV 1 PUFF INHALE (07:37)
[2024-09-17] MEDS: methADONE HCl 20 MG/2 ML ORAL.CONC 65 MG PO (09:02)
[2024-09-17] MEDS: 0.9 % Sodium Chloride Flush 3 ML SYRINGE IVFLUSH ×3 (09:02→20:26)
[2024-09-17] MEDS: predniSONE 20 MG TABLET 40 MG PO (09:03)
[2024-09-17] MEDS: cloNIDine HCL 0.1 MG TABLET 0.3 MG PO ×3 (09:03→20:26)
--- NOTE | 2024-09-17 09:48 | HO.PM.IMPN ---
Subjective Subjective Date of Service: 09/17/24 Interval History: f/u on RSV related acute hypoxic respiatory failure with hypoxia He continued to require significant amount of oxygen and desaturated rather rapidly upon cessation of oxygen Physical Exam Vital Signs: Vital Signs: Last Vital Signs Temp 98.6 F 09/17/24 08:00 Pulse 82 09/17/24 08:00 Resp 18 09/17/24 08:00 BP 103/62 09/17/24 09:03 Pulse Ox 92 09/17/24 08:00 O2 Del Method Nasal Cannula 09/17/24 08:00 O2 Flow Rate 4.0 09/17/24 08:00 Oxygen Flow Rate 4 09/14/24 04:12 BMI result Body Mass Index 18.3 General: AO X 3, no acute distress, emaciated Resp: CTA bilateral CVS: S1,S2,RRR GI: +BS, NT, no distention Skin: No rash Neuro: motor grossly intact Psych: appropriate affect Objective Data Active Medications Acetaminophen (Acetaminophen 325 Mg Tablet) 975 mg PO Q6H PRN PRN Reason: Pain, Mild 1-3,fever,headache Last Admin: 09/15/24 21:41 Dose: 975 mg Documented By: LEELEE Albuterol/Ipratropium (Albuterol/Iprat 2.5/0.5mg 3 Ml Ampul.Neb) 3 ml INHALE RQ4H WHILE AWAKE [facility] Last Admin: 09/17/24 07:37 Dose: 3 ml Documented By: SHANEL Calcium Carbonate (Calcium Carbonate 750 Mg Tab.Chew) 750 mg PO Q4H PRN PRN Reason: Heartburn Clonidine HCl (Clonidine Hcl 0.1 Mg Tablet) 0.3 mg PO TID [facility]; Protocol Last Admin: 09/17/24 09:03 Dose: 0.3 mg Documented By: LUIS Enoxaparin Sodium (Enoxaparin Sodium 40 Mg/0.4 Ml Syringe) 40 mg SUBCUT Q24H [facility] Last Admin: 09/17/24 05:48 Dose: 40 mg Documented By: ISACC Fluticasone/Umeclidinium/Vilanterol (Fluticasone/Umeclidinium/Vilanterol 200/62.5/25 Blst.W.Dev) 1 puff INHALE RDAILY [facility] Last Admin: 09/17/24 07:37 Dose: 1 puff Documented By: SHANEL Hydromorphone HCl (Hydromorphone Hcl 1 Mg/Ml Syringe) 1 mg IVPUSH Q3H PRN; Protocol PRN Reason: Pain, Severe (Pain Scale 7-10) Last Admin: 09/15/24 05:50 Dose: 1 mg Documented By: MARY Azithromycin 500 mg/ Sodium (Chloride) 250 mls @ 125 mls/hr IV Q24H [facility] Last Infusion: 09/17/24 09:06 Dose: Infused Documented By: LUIS Magnesium Hydroxide (Milk Of Magnesia 30 Ml Oral.Susp) 30 ml PO DAILY PRN PRN Reason: Constipation Melatonin (Melatonin 3 Mg Tablet) 6 mg PO BEDTIME PRN PRN Reason: Insomnia Methadone HCl (Methadone Hcl 20 Mg/2 Ml Oral.Conc) 65 mg PO DAILY@0800 [facility] Last Admin: 09/17/24 09:02 Dose: 65 mg Documented By: LUIS Co-signed By: RUTH Ondansetron HCl (Ondansetron Hcl 4 Mg/2 Ml Vial) 4 mg IVPUSH Q8H PRN PRN Reason: Nausea and Vomiting Last Admin: 09/15/24 00:50 Dose: 4 mg Documented By: MARY Prednisone (Prednisone 20 Mg Tablet) 40 mg PO DAILY [facility] Last Admin: 09/17/24 09:03 Dose: 40 mg Documented By: LUIS Sodium Chloride (0.9 % Sodium Chloride Flush 3 Ml Syringe) 3 ml IVFLUSH QSHIFT [facility] Last Admin: 09/17/24 09:02 Dose: 3 ml Documented By: LUIS Labs 09/17/24 05:15 09/17/24 05:15 Labs: Laboratory Results - last 24 hr 09/17/24 05:15 MCV 86.0 MCH 28.4 MCHC 33.0 RDW 14.3 Plt Count 280 MPV 8.8 L Immature Gran % (Auto) 0.3 Neut % (Auto) 57.4 Lymph % (Auto) 30.2 [place] % (Auto) 9.9 Eos % (Auto) 1.9 Baso % (Auto) 0.3 Lymph # (Auto) 2.1 [place] # (Auto) 0.7 Eos # (Auto) 0.1 Baso # (Auto) 0.0 Abs Immat Gran (auto) 0.02 Absolute Neuts (auto) 3.9 Absolute Nucleated RBC 0.000 Nucleated RBC % (auto) 0.0 Anion Gap 11 L Estim Creat Clear Calc 101.2 Estimated GFR > 60 Random Glucose 91 Calcium 9.1 Microbiology Microbiology Results: Microbiology 09/14/24 05:38 Blood Culture - Preliminary Blood - Venous No growth after 48 hours. 09/14/24 05:22 Blood Culture - Preliminary Blood - Venous No growth after 48 hours. Assessment and Plan (1) Lung mass: Status: Acute Plan 59-year-old male with a past medical history significant for COPD and substance abuse (IV cocaine and heroin), who presented to the ED due to shortness of breath and cough, found on the street. viral Sepsis and acute hypoxia secondary to RSV causing COPD exacerbation, nl wbc, cultures negative. continue to be hypoxic and requiring O2 -continue supportive care, O2 as needed, continue Prednisone, bronchodilators by Neb, empiric Abx Zithroo, -given persistent hypoxia, will request CT of chest GAEL/IVDU (+fentanyl, cocaine, opioid and no methadone detected), he says he's been off methadone for months - patient threatened to leave multiple times if he did not receive methadone-- -addiction med has started methadone and adjusting Malnutrition - consider nutrition consult once patient more cooperative Full code VTE prophylaxis: Lovenox Patient with sepsis and hypoxia secondary to RSV and COPD exacerbation, requiring admission for IV antibiotics, breathing treatments and monitoring for at least 2 midnights stay. Quality Stroke Does the patient have a stroke diagnosis?: No VTE Prior VTE?: No VTE Risk Level:: Medical - moderate - high VTE Device Contraindication: Treatment Not Indicated VTE Drug Contraindication: N/A - Med Ordered
--- NOTE | 2024-09-17 10:41 | MHC.RECOVRN ---
Pts referral faxed to [facility]. Pt to present to OTP day after discharge.
[2024-09-17] MEDS: iohexoL 350 MG/ML 75 ML INFUS..BTL 65 ML IV (11:28)
--- NOTE | 2024-09-17 12:05 | MHC.CLN ---
F/U DIET=REGULAR. ENSURE TID PROVIDES 1050 KCALS, 60 G PROTEIN. PO INTAKE APPEARS GOOD, 75-100%. FOLLOW FOR PO INTAKE.
[2024-09-17] MEDS: Acetaminophen 325 MG TABLET 975 MG PO (12:50)
--- NOTE | 2024-09-17 14:30 | MHC.RECOVRN ---
Met with pt in 344 to follow up and provide support. Pt received 65 mg methadone this morning. Pt sitting in bed, awake, alert, engages in conversation, quite diaphoretic. Pt reports withdrawal symptoms including diaphoresis, restlessness, and difficulty sleeping last night. Pts lunch in front of him, not able to finish meal. Denies GI symptoms. Pt requesting increase in methadone dose. Denies other questions or concerns for t/w. Spoke with pts RN, reports increase in diaphoresis around this same time yesterday. Discussed with hospitalist, plan to add additional dose of methadone this afternoon.
[2024-09-18] VITALS (11 sets, daily range): BP systolic 102–131; BP diastolic 54–81; PULSE 69–90; RESP 14–20; TEMP 36.6–37.3; O2SAT 77–96
[2024-09-18] MEDS: Azithromycin 500 MG in 0.9 % Sodium Chloride 250 ML 125 MG IV (05:49)
[2024-09-18] MEDS: Enoxaparin Sodium 40 MG/0.4 ML SYRINGE SUBCUT (05:49)
--- NOTE | 2024-09-18 07:17 | HO.PM.IMPN ---
Subjective Subjective Date of Service: 09/18/24 Interval History: f/u on RSV related acute hypoxic respiatory failure with hypoxia For impending much better this morning. He is still relying on supplemental oxygen Physical Exam Vital Signs: Vital Signs: Last Vital Signs Temp 97.9 F 09/18/24 03:37 Pulse 74 09/18/24 03:37 Resp 20 09/18/24 03:37 BP 123/76 09/18/24 03:37 Pulse Ox 94 09/18/24 06:27 O2 Del Method Nasal Cannula 09/18/24 06:27 O2 Flow Rate 3 09/18/24 06:27 Oxygen Flow Rate 4 09/14/24 04:12 BMI result Body Mass Index 18.3 General: AO X 3, no acute distress, emaciated Resp: CTA bilateral CVS: S1,S2,RRR GI: +BS, NT, no distention Skin: No rash Neuro: motor grossly intact Psych: appropriate affect Objective Data Active Medications Acetaminophen (Acetaminophen 325 Mg Tablet) 975 mg PO Q6H PRN PRN Reason: Pain, Mild 1-3,fever,headache Last Admin: 09/17/24 12:50 Dose: 975 mg Documented By: LUIS Albuterol/Ipratropium (Albuterol/Iprat 2.5/0.5mg 3 Ml Ampul.Neb) 3 ml INHALE RQ4H WHILE AWAKE [facility] Last Admin: 09/17/24 19:36 Dose: 3 ml Documented By: ALLISON Calcium Carbonate (Calcium Carbonate 750 Mg Tab.Chew) 750 mg PO Q4H PRN PRN Reason: Heartburn Clonidine HCl (Clonidine Hcl 0.1 Mg Tablet) 0.3 mg PO TID [facility]; Protocol Last Admin: 09/17/24 20:26 Dose: 0.3 mg Documented By: ISACC Enoxaparin Sodium (Enoxaparin Sodium 40 Mg/0.4 Ml Syringe) 40 mg SUBCUT Q24H [facility] Last Admin: 09/18/24 05:49 Dose: 40 mg Documented By: ISACC Fluticasone/Umeclidinium/Vilanterol (Fluticasone/Umeclidinium/Vilanterol 200/62.5/25 Blst.W.Dev) 1 puff INHALE RDAILY [facility] Last Admin: 09/17/24 07:37 Dose: 1 puff Documented By: SHANEL Hydromorphone HCl (Hydromorphone Hcl 1 Mg/Ml Syringe) 1 mg IVPUSH Q3H PRN; Protocol PRN Reason: Pain, Severe (Pain Scale 7-10) Last Admin: 09/15/24 05:50 Dose: 1 mg Documented By: MARY Azithromycin 500 mg/ Sodium (Chloride) 250 mls @ 125 mls/hr IV Q24H [facility] Last Admin: 09/18/24 05:49 Dose: 125 mls/hr Documented By: ISACC Magnesium Hydroxide (Milk Of Magnesia 30 Ml Oral.Susp) 30 ml PO DAILY PRN PRN Reason: Constipation Melatonin (Melatonin 3 Mg Tablet) 6 mg PO BEDTIME PRN PRN Reason: Insomnia Methadone HCl (Methadone Hcl 20 Mg/2 Ml Oral.Conc) 70 mg PO DAILY@0800 [facility] Ondansetron HCl (Ondansetron Hcl 4 Mg/2 Ml Vial) 4 mg IVPUSH Q8H PRN PRN Reason: Nausea and Vomiting Last Admin: 09/15/24 00:50 Dose: 4 mg Documented By: MARY Prednisone (Prednisone 20 Mg Tablet) 40 mg PO DAILY [facility] Last Admin: 09/17/24 09:03 Dose: 40 mg Documented By: LUIS Sodium Chloride (0.9 % Sodium Chloride Flush 3 Ml Syringe) 3 ml IVFLUSH QSHIFT [facility] Last Admin: 09/17/24 20:26 Dose: 3 ml Documented By: ISACC Labs 09/17/24 05:15 09/17/24 05:15 Assessment and Plan (1) Lung mass: Status: Acute Plan 59-year-old male with a past medical history significant for COPD and substance abuse (IV cocaine and heroin), who presented to the ED due to shortness of breath and cough, found on the street. viral Sepsis and acute hypoxia secondary to RSV causing COPD exacerbation, nl wbc, cultures negative. continue to be hypoxic and requiring O2 -ct 09/17: PNA, mucus plugging, bronchial wall thickening, interstitial fibrosis, emphysema and No PE -continue supportive care, O2 as needed, continue Prednisone, bronchodilators by Neb, empiric Abx Zithro for 5 days -home O2 eval, PT eval GAEL/IVDU (+fentanyl, cocaine, opioid and no methadone detected), he says he's been off methadone for months - continue methadone per addiction med moderate protein calory Malnutrition - nutrition consult Full code VTE prophylaxis: Lovenox Patient with sepsis and hypoxia secondary to RSV and COPD exacerbation, requiring admission for IV antibiotics, breathing treatments and monitoring for at least 2 midnights stay. Quality Stroke Does the patient have a stroke diagnosis?: No VTE Prior VTE?: No VTE Risk Level:: Medical - moderate - high VTE Device Contraindication: Treatment Not Indicated VTE Drug Contraindication: N/A - Med Ordered
[2024-09-18] MEDS: predniSONE 20 MG TABLET 40 MG PO (08:05)
[2024-09-18] MEDS: cloNIDine HCL 0.1 MG TABLET 0.3 MG PO ×3 (08:05→20:41)
[2024-09-18] MEDS: methADONE HCl 20 MG/2 ML ORAL.CONC 70 MG PO (08:06)
[2024-09-18] MEDS: 0.9 % Sodium Chloride Flush 3 ML SYRINGE IVFLUSH ×3 (08:07→20:42)
--- NOTE | 2024-09-18 09:23 | P.CONPL_ITS ---
History of Present Illness History of Present Illness Consult date: 09/18/24 Chief complaint: RSV, COPD Exacerbation, Hypoxia Narrative: 59-year-old gentleman with underlying history of COPD, followed by Dr. Aiken, also substance abuse admitted on 09/14/2024 with COPD exacerbation hypoxemia secondary to RSV. Patient has been treated with systemic glucocorticoids and nebulized bronchodilators with significant improvement and now is essentially at baseline. His CT angio chest demonstrated no evidence of pulmonary emboli, but no emphysema and localized right-sided fibrosis with no significant changes. Review of Systems 2 Constitutional: Constitutional: Denies daytime sleepiness, Denies excessive sweating, Denies fatigue, Denies fever(s), Denies lethargy, Denies malaise, Denies night sweats, Denies snoring and Denies weight loss Eyes: Eyes: Denies blurry vision and Denies itchy eyes ENT: Denies nasal congestion, Denies post nasal drip, Denies sinus pain, Denies sinus pressure and Denies other ( Thrush) Cardiovascular: Cardiovascular: Denies chest pain, Denies pedal edema, Denies dyspnea, Denies orthopnea and Denies paroxysmal nocturnal dyspnea Respiratory: Respiratory: Denies cough, Denies hemoptysis, Denies excessive phlegm production, Denies dyspnea, Denies snoring and Denies wheezing Gastrointestinal: Gastrointestinal: Denies abdominal pain and Denies heartburn Musculoskeletal: Musculoskeletal: Denies myalgias, Denies arthralgias and Denies joint swelling Integumentary/Breasts: Skin/Breast: Denies rash Neurologic: Denies memory loss and Denies seizure-like activity Psychiatric: Psychiatric: Denies abnormal sleep pattern, Denies anxiety and Denies memory loss Endocrine: Endocrine: Denies excessive sweating, Denies fatigue and Denies heat intolerance Hematologic/Lymphatic: Hematologic/Lymphatic: Denies easy bruising Allergic/Immunologic: Allergic/Immunologic: Denies itchy eyes, Denies seasonal rhinorrhea and Denies wheezing PMFSH Past Medical History Medical History Opiate abuse, continuous Pneumonia COVID-19 determined by clinical diagnostic criteria COPD (chronic obstructive pulmonary disease) COPD (chronic obstructive pulmonary disease) Social History Social History Household Members: Significant Other Household Members Other:: homeless Housing: House Do you presently have visiting nurse or other home services: No Alcohol intake: never Patient Tobacco Use Status: Current everyday Tobacco user Tobacco use type: Cigarette Substance Use Type: Heroin service: No Current occupational status: disabled Meds Allergies Allergy/AdvReac Type Severity Reaction Status Date / Time No Known Allergies Allergy Verified 09/14/24 04:17 Active Medications: Current Medications Acetaminophen (Acetaminophen 325 Mg Tablet) 975 mg PO Q6H PRN PRN Reason: Pain, Mild 1-3,fever,headache Last Admin: 09/17/24 12:50 Dose: 975 mg Albuterol/Ipratropium (Albuterol/Iprat 2.5/0.5mg 3 Ml Ampul.Neb) 3 ml INHALE RQ4H WHILE AWAKE [facility] Last Admin: 09/18/24 08:51 Dose: Not Given Calcium Carbonate (Calcium Carbonate 750 Mg Tab.Chew) 750 mg PO Q4H PRN PRN Reason: Heartburn Clonidine HCl (Clonidine Hcl 0.1 Mg Tablet) 0.3 mg PO TID [facility]; Protocol Last Admin: 09/18/24 08:05 Dose: 0.3 mg Enoxaparin Sodium (Enoxaparin Sodium 40 Mg/0.4 Ml Syringe) 40 mg SUBCUT Q24H [facility] Last Admin: 09/18/24 05:49 Dose: 40 mg Fluticasone/Umeclidinium/Vilanterol (Fluticasone/Umeclidinium/Vilanterol 200/62.5/25 Blst.W.Dev) 1 puff INHALE RDAILY [facility] Last Admin: 09/17/24 07:37 Dose: 1 puff Hydromorphone HCl (Hydromorphone Hcl 2 Mg/Ml Vial) 2 mg SUBCUT Q4H PRN; Protocol PRN Reason: Pain, Severe (Pain Scale 7-10) Magnesium Hydroxide (Milk Of Magnesia 30 Ml Oral.Susp) 30 ml PO DAILY PRN PRN Reason: Constipation Melatonin (Melatonin 3 Mg Tablet) 6 mg PO BEDTIME PRN PRN Reason: Insomnia Methadone HCl (Methadone Hcl 20 Mg/2 Ml Oral.Conc) 70 mg PO DAILY@0800 [facility] Last Admin: 09/18/24 08:06 Dose: 70 mg Ondansetron HCl (Ondansetron Hcl 4 Mg/2 Ml Vial) 4 mg IVPUSH Q8H PRN PRN Reason: Nausea and Vomiting Last Admin: 09/15/24 00:50 Dose: 4 mg Prednisone (Prednisone 20 Mg Tablet) 40 mg PO DAILY [facility] Last Admin: 09/18/24 08:05 Dose: 40 mg Sodium Chloride (0.9 % Sodium Chloride Flush 3 Ml Syringe) 3 ml IVFLUSH QSHIFT [facility] Last Admin: 09/18/24 08:07 Dose: 3 ml Home Medications ?Medication ?Instructions ?Recorded ?Confirmed ?Last Taken ?Type albuterol sulfate 90 mcg/actuation 2 puff PO QID 12/14/20 09/14/24 12/14/20 00:55 History aerosol inhaler methadone 10 mg/mL oral concentrate 48 mg PO DAILY 12/15/20 12/15/20 12/13/20 History clonidine HCl 0.3 mg tablet 0.3 mg PO TID 09/14/24 09/14/24 Unknown History fluticasone fur. 200 mcg-umeclid 1 ea inhalation QAM 09/14/24 09/14/24 Unknown History 62.5 mcg-vilant 25 mcg inhalat.powder (Trelegy Ellipta) Physical Exam 2 Vital Signs: Vital Signs: Last Vital Signs Temp 98.2 F 09/18/24 07:41 Pulse 75 09/18/24 07:41 Resp 14 09/18/24 07:41 BP 113/70 09/18/24 07:41 Pulse Ox 92 09/18/24 07:41 O2 Del Method Room Air 09/18/24 07:41 O2 Flow Rate 3 09/18/24 06:27 Oxygen Flow Rate 4 09/14/24 04:12 BMI result Body Mass Index 18.3 Const: General: no acute distress and alert Nutritional Appearance: not obese Orientation/consciousness: Other orientation findings ( oriented) HEENT: Head: Yes atraumatic Eyes: General: appearance normal, both eyes and all related structures S clerae: sclerae normal EOM: EOMs intact bilaterally Neck: Neck: Yes supple Lymphatic: no lymphadenopathy noted Resp: Effort & Inspection: normal respiratory effort and no use of accessory muscles Auscultation: clear to auscultation bilaterally Cardio: Rate: regular rate Rhythm: regular rhythm Heart sounds: no gallops, no murmurs and no rubs Skin: General skin exam: other ( warm) Extrem: General: No clubbing, No cyanosis and No edema Results Laboratory Findings 09/17/24 05:15 09/17/24 05:15 Abnormal lab findings: Abnormal Labs 09/14/24 09/14/24 09/14/24 04:34 05:27 06:45 Hgb 13.7 L Hct 40.8 L MPV 8.5 L Neut % (Auto) 78.2 H Lymph % (Auto) 12.7 L Lymph # (Auto) 1.1 L Abs Immat Gran (auto) VBG pH 7.46 H VBG HCO3 27 H Anion Gap BUN POC Glucose Random Glucose Fasting Glucose Urine Opiates Screen POSITIVE H Urine Fentanyl Screen POSITIVE H Urine Cocaine Screen POSITIVE H RSV RNA Qual (PCR) POSITIVE A 09/15/24 09/15/24 09/16/24 05:46 19:58 05:36 Hgb 13.8 L Hct MPV 9.3 L Neut % (Auto) 74.9 H Lymph % (Auto) 14.1 L Lymph # (Auto) Abs Immat Gran (auto) 0.04 H VBG pH VBG HCO3 Anion Gap BUN 20 H 31 H POC Glucose 138 H Random Glucose 120 H Fasting Glucose 120 H Urine Opiates Screen Urine Fentanyl Screen Urine Cocaine Screen RSV RNA Qual (PCR) 09/17/24 05:15 Hgb 13.2 L Hct 40.0 L MPV 8.8 L Neut % (Auto) Lymph % (Auto) Lymph # (Auto) Abs Immat Gran (auto) VBG pH VBG HCO3 Anion Gap 11 L BUN 26 H POC Glucose Random Glucose Fasting Glucose Urine Opiates Screen Urine Fentanyl Screen Urine Cocaine Screen RSV RNA Qual (PCR) Microbiology: Microbiology 09/14/24 05:38 Blood - Venous Blood Culture - Preliminary No growth after 48 hours. 09/14/24 05:22 Blood - Venous Blood Culture - Preliminary No growth after 48 hours. Assessment and Plan (1) Acute respiratory failure with hypoxia: Status: Acute (2) COPD exacerbation: Status: Acute (3) RSV bronchitis: Status: Acute Plan Impression: 59-year-old gentleman with underlying COPD and substance abuse admitted with COPD exacerbation and hypoxia secondary to receive bronchitis, now essentially recovered to baseline. Recommendations: Agree with current treatment regimen, consider tapering off systemic glucocorticoids. Procedures Date of Service Date of Service: 09/18/24
[2024-09-18] MEDS: Albuterol/Iprat 2.5/0.5MG 3 ML AMPUL.NEB INHALE ×3 (11:10→18:49)
[2024-09-18] MEDS: Fluticasone/Umeclidinium/Vilanterol 200/62.5/25 BLST.W.DEV 1 PUFF INHALE (11:10)
--- NOTE | 2024-09-18 12:23 | MHC.CM.PN ---
CM MET WITH PT WHO REPORTS HE IS NOT INTERESTED IN GOING TO STR HE IS AWARE HE WILL NEED HOME O2 AT DC HE SAYS HE HAS BEEN STAYING AT A RESIDENTIAL IN [place] WHICH IS BASED IN A [place]OTEL, THERE HAVE NOT BEEN ANY OPEN ROOMS HOWEVER SO HE HAS BEEN STAYING IN THE [facility] CM REQUESTED RESIDENTIAL INFORMATION SO IT COULD BE CONFIRMED THAT HE CAN HAVE O2 THERE PT STATES HE KNOWS IT IS ALLOWED AND HE WILL NOT HAVE A PROBLEM RETURNING CM REMINDED HIM THAT IF HE GETS THERE AND HE DOES NOT HAVE A PLACE TO STAY, HE WILL BE STUCK WITH NO ASSISTANCE HE AGAIN STATES HE IS SURE HE CAN RETURN, HOWEVER, HE FEELS HE SHOULD GO EARLIER IN THE DAY TOMORROW CM INFORMED HIM THIS WOULD BE POSSIBLE LONG HE IS MEDICALLY CLEARED PT WILL NEED TRANSPORT ARRANGED
--- NOTE | 2024-09-18 16:48 | P.PNADD_ITS ---
Subjective Subjective Date of Service: 09/18/24 Reason For Visit: RSV, COPD Exacerbation, Hypoxia Interim History: Patient seen in follow up for OUD Methadone 70mg this morning Patient reports that overall he is doing well with current dose, however he has noted in the late afternoon sudden onset of chills and I start sweating . He states they subside after a few moments. He would like to continue titrating dose Review of Systems Constitutional: Reports as per HPI and Reports no additional constitutional complaints Mental Status Exam Mental Status Exam Patient Appearance: Well Grooomed Patient Orientation: Person, Place, Time and Situation Level of Consciousness: Awake and Appropriate Patient Behavior: Appropriate Mood Description: Calm Affect Description: Calm Ability to Follow Directions: Excellent Speech Pattern: Clear Thought Process: Intact Judgement: Good Diagnostics Vital Signs (24Hr): Vital Signs - 24 hr 09/17/24 19:25 09/17/24 19:36 09/17/24 23:20 Temperature 97.3 F 97.6 F Pulse Rate 76 77 79 Respiratory Rate 18 18 20 Blood Pressure 113/62 122/75 Pulse Oximetry 96 94 Oxygen Delivery Method Nasal Cannula Nasal Cannula Oxygen Flow Rate 4 4 09/18/24 03:37 09/18/24 06:27 09/18/24 07:41 Temperature 97.9 F 98.2 F Pulse Rate 74 75 Respiratory Rate 20 14 Blood Pressure 123/76 113/70 Pulse Oximetry 96 94 92 Oxygen Delivery Method Nasal Cannula Nasal Cannula Room Air Oxygen Flow Rate 4 3 09/18/24 11:11 09/18/24 11:23 09/18/24 15:25 Temperature 97.8 F Pulse Rate 89 78 73 Respiratory Rate 16 20 16 Blood Pressure 102/60 Pulse Oximetry 90 L Oxygen Delivery Method Nasal Cannula Oxygen Flow Rate 2 09/18/24 15:44 Temperature 98 F Pulse Rate 86 Respiratory Rate 18 Blood Pressure 102/59 L Pulse Oximetry 91 L Oxygen Delivery Method Nasal Cannula Oxygen Flow Rate 2 BMI result Body Mass Index 18.3 Labs 09/17/24 05:15 09/17/24 05:15 Labs: Laboratory Results - last 48 hr 09/17/24 05:15 WBC 6.9 RBC 4.65 Hgb 13.2 L Hct 40.0 L MCV 86.0 MCH 28.4 MCHC 33.0 RDW 14.3 Plt Count 280 MPV 8.8 L Immature Gran % (Auto) 0.3 Neut % (Auto) 57.4 Lymph % (Auto) 30.2 Blair % (Auto) 9.9 Eos % (Auto) 1.9 Baso % (Auto) 0.3 Lymph # (Auto) 2.1 Blair # (Auto) 0.7 Eos # (Auto) 0.1 Baso # (Auto) 0.0 Abs Immat Gran (auto) 0.02 Absolute Neuts (auto) 3.9 Absolute Nucleated RBC 0.000 Nucleated RBC % (auto) 0.0 Sodium 136 Potassium 4.1 Chloride 101 Carbon Dioxide 28 Anion Gap 11 L BUN 26 H Creatinine 0.61 Estim Creat Clear Calc 101.2 Estimated GFR > 60 Random Glucose 91 Calcium 9.1 Imaging Radiology Impressions: ITS Impressions Chest CTA 09/17/24 11:08 IMPRESSION: 1. Exam quality is diagnostic. There is no evidence of pulmonary embolus or acute aortic syndrome. Normal caliber pulmonary arteries. 2. Emphysema. Diffuse bronchial wall thickening with foci of endobronchial mucoid plugging lower lobes left greater than right. Segmental consolidation medial left lower lobe consistent with pneumonia. Subsegmental consolidation posterior right lower lobe, possibly atelectasis versus additional mild pneumonia. No effusions. 3. Patchy peribronchial groundglass opacities in the medial right middle lobe, also likely infectious/inflammatory in nature. 4. Chronic interstitial fibrosis noted in the right upper lobe medially. This is unchanged. 5. Enlarged inferior left hilar lymph nodes, presumably reactive given the process in the left lower lobe. 6. Ancillary findings as discussed. Electronically signed by: Clinton Matamoros MD 09/17/2024 12:55 PM [facility] Medications Medications Current Medications Acetaminophen (Acetaminophen 325 Mg Tablet) 975 mg PO Q6H PRN PRN Reason: Pain, Mild 1-3,fever,headache Last Admin: 09/17/24 12:50 Dose: 975 mg Albuterol/Ipratropium (Albuterol/Iprat 2.5/0.5mg 3 Ml Ampul.Neb) 3 ml INHALE RQ4H WHILE AWAKE [facility] Last Admin: 09/18/24 15:23 Dose: 3 ml Calcium Carbonate (Calcium Carbonate 750 Mg Tab.Chew) 750 mg PO Q4H PRN PRN Reason: Heartburn Clonidine HCl (Clonidine Hcl 0.1 Mg Tablet) 0.3 mg PO TID [facility]; Protocol Last Admin: 09/18/24 15:38 Dose: 0.3 mg Enoxaparin Sodium (Enoxaparin Sodium 40 Mg/0.4 Ml Syringe) 40 mg SUBCUT Q24H [facility] Last Admin: 09/18/24 05:49 Dose: 40 mg Fluticasone/Umeclidinium/Vilanterol (Fluticasone/Umeclidinium/Vilanterol 200/62.5/25 Blst.W.Dev) 1 puff INHALE RDAILY [facility] Last Admin: 09/18/24 11:10 Dose: 1 puff Hydromorphone HCl (Hydromorphone Hcl 2 Mg/Ml Vial) 2 mg SUBCUT Q4H PRN; Protocol PRN Reason: Pain, Severe (Pain Scale 7-10) Magnesium Hydroxide (Milk Of Magnesia 30 Ml Oral.Susp) 30 ml PO DAILY PRN PRN Reason: Constipation Melatonin (Melatonin 3 Mg Tablet) 6 mg PO BEDTIME PRN PRN Reason: Insomnia Ondansetron HCl (Ondansetron Hcl 4 Mg/2 Ml Vial) 4 mg IVPUSH Q8H PRN PRN Reason: Nausea and Vomiting Last Admin: 09/15/24 00:50 Dose: 4 mg Prednisone (Prednisone 20 Mg Tablet) 40 mg PO DAILY [facility] Last Admin: 09/18/24 08:05 Dose: 40 mg Sodium Chloride (0.9 % Sodium Chloride Flush 3 Ml Syringe) 3 ml IVFLUSH QSHIFT [facility] Last Admin: 09/18/24 15:38 Dose: 3 ml Allergies Allergies Allergy/AdvReac Type Severity Reaction Status Date / Time No Known Allergies Allergy Verified 09/14/24 04:17 Assessment & Plan Assessment & Plan (1) Opioid use disorder: Status: Acute Code(s): F11.90 - Opioid use, unspecified, uncomplicated Assessment and Plan: * methadone incresaed to 75mg tomorrow (09/18) will hold at this dose for now * referral already sent to [facility]--patient to bring last dose letter to [facility] once discharged * take home narcan at discharge Total time managing care of this patient today _15___ minutes.
[2024-09-19 03:53] VITALS: BP 132/86; PULSE 72; RESP 18; TEMP 36.5; O2SAT 91
[2024-09-19] MEDS: Enoxaparin Sodium 40 MG/0.4 ML SYRINGE SUBCUT (06:15)
[2024-09-19 07:24] VITALS: BP 116/71; PULSE 73; RESP 16; TEMP 36.7; O2SAT 90
[2024-09-19] MEDS: predniSONE 20 MG TABLET 40 MG PO (08:01)
[2024-09-19] MEDS: cloNIDine HCL 0.1 MG TABLET 0.3 MG PO (08:01)
[2024-09-19] MEDS: methADONE HCl 20 MG/2 ML ORAL.CONC 75 MG PO (08:02)
[2024-09-19] MEDS: 0.9 % Sodium Chloride Flush 3 ML SYRINGE IVFLUSH (08:02)
[2024-09-19] MEDS: Fluticasone/Umeclidinium/Vilanterol 200/62.5/25 BLST.W.DEV 1 PUFF INHALE (09:24)
[2024-09-19] MEDS: Albuterol/Iprat 2.5/0.5MG 3 ML AMPUL.NEB INHALE ×2 (09:24→11:41)
[2024-09-19 09:27] VITALS: PULSE 73; RESP 16
--- NOTE | 2024-09-19 09:31 | HO.PM.IMPN ---
Subjective Subjective Date of Service: 09/19/24 Interval History: f/u on RSV related acute hypoxic respiatory failure with hypoxia He feels good good but desat signficantly when he takes off O2 Physical Exam Vital Signs: Vital Signs: Last Vital Signs Temp 98.1 F 09/19/24 07:24 Pulse 73 09/19/24 09:27 Resp 16 09/19/24 09:27 BP 116/71 09/19/24 07:24 Pulse Ox 90 L 09/19/24 07:24 O2 Del Method Room Air 09/19/24 07:24 O2 Flow Rate 2 09/18/24 23:01 Oxygen Flow Rate 4 09/14/24 04:12 BMI result Body Mass Index 18.3 General: AO X 3, no acute distress, emaciated Resp: CTA bilateral CVS: S1,S2,RRR GI: +BS, NT, no distention Skin: No rash Neuro: motor grossly intact Psych: appropriate affect Objective Data Active Medications Acetaminophen (Acetaminophen 325 Mg Tablet) 975 mg PO Q6H PRN PRN Reason: Pain, Mild 1-3,fever,headache Last Admin: 09/17/24 12:50 Dose: 975 mg Documented By: LUIS Albuterol/Ipratropium (Albuterol/Iprat 2.5/0.5mg 3 Ml Ampul.Neb) 3 ml INHALE RQ4H WHILE AWAKE [facility] Last Admin: 09/19/24 09:24 Dose: 3 ml Documented By: MENDEZ Calcium Carbonate (Calcium Carbonate 750 Mg Tab.Chew) 750 mg PO Q4H PRN PRN Reason: Heartburn Clonidine HCl (Clonidine Hcl 0.1 Mg Tablet) 0.3 mg PO TID [facility]; Protocol Last Admin: 09/19/24 08:01 Dose: 0.3 mg Documented By: JANET Enoxaparin Sodium (Enoxaparin Sodium 40 Mg/0.4 Ml Syringe) 40 mg SUBCUT Q24H [facility] Last Admin: 09/19/24 06:15 Dose: 40 mg Documented By: ISACC Fluticasone/Umeclidinium/Vilanterol (Fluticasone/Umeclidinium/Vilanterol 200/62.5/25 Blst.W.Dev) 1 puff INHALE RDAILY [facility] Last Admin: 09/19/24 09:24 Dose: 1 puff Documented By: MENDEZ Hydromorphone HCl (Hydromorphone Hcl 2 Mg/Ml Vial) 2 mg SUBCUT Q4H PRN; Protocol PRN Reason: Pain, Severe (Pain Scale 7-10) Magnesium Hydroxide (Milk Of Magnesia 30 Ml Oral.Susp) 30 ml PO DAILY PRN PRN Reason: Constipation Melatonin (Melatonin 3 Mg Tablet) 6 mg PO BEDTIME PRN PRN Reason: Insomnia Methadone HCl (Methadone Hcl 20 Mg/2 Ml Oral.Conc) 75 mg PO DAILY@0800 [facility] Last Admin: 09/19/24 08:02 Dose: 75 mg Documented By: JANET Co-signed By: ELA Ondansetron HCl (Ondansetron Hcl 4 Mg/2 Ml Vial) 4 mg IVPUSH Q8H PRN PRN Reason: Nausea and Vomiting Last Admin: 09/15/24 00:50 Dose: 4 mg Documented By: MARY Prednisone (Prednisone 20 Mg Tablet) 40 mg PO DAILY [facility] Last Admin: 09/19/24 08:01 Dose: 40 mg Documented By: JANET Sodium Chloride (0.9 % Sodium Chloride Flush 3 Ml Syringe) 3 ml IVFLUSH QSHIFT [facility] Last Admin: 09/19/24 08:02 Dose: 3 ml Documented By: JANET Labs 09/17/24 05:15 09/17/24 05:15 Microbiology Microbiology Results: Microbiology 09/14/24 05:38 Blood Culture - Final Blood - Venous No growth after 5 days. 09/14/24 05:22 Blood Culture - Final Blood - Venous No growth after 5 days. Assessment and Plan (1) Lung mass: Status: Acute Plan 59-year-old male with a past medical history significant for COPD and substance abuse (IV cocaine and heroin), who presented to the ED due to shortness of breath and cough, found on the street. viral Sepsis and acute hypoxia secondary to RSV causing COPD exacerbation, nl wbc, cultures negative. continue to be hypoxic and requiring O2 -ct 09/17: PNA, mucus plugging, bronchial wall thickening, interstitial fibrosis, emphysema and No PE -continue supportive care, O2 as needed, continue Prednisone, bronchodilators by Neb, empiric Abx Zithro for 5 days -needs O2 eval, PT recommends STR GAEL/IVDU (+fentanyl, cocaine, opioid and no methadone detected), he says he's been off methadone for months - continue methadone per addiction med moderate protein calory Malnutrition - nutrition consult Full code VTE prophylaxis: Lovenox Patient with sepsis and hypoxia secondary to RSV and COPD exacerbation, requiring admission for IV antibiotics, breathing treatments and monitoring for at least 2 midnights stay. Quality Stroke Does the patient have a stroke diagnosis?: No VTE Prior VTE?: No VTE Risk Level:: Medical - moderate - high VTE Device Contraindication: Treatment Not Indicated VTE Drug Contraindication: N/A - Med Ordered
--- NOTE | 2024-09-19 09:31 | MHC.CLN ---
F/U DIET=REGULAR. ENSURE TID PROVIDES 1050 KCALS, 60 G PROTEIN. PO INTAKE APPEARS GOOD, 50-75%. LIKES ENSURE SUPPLEMENT. QUALIFIES MODERATELY MALNOURISHED IN THE CONTEXT OF SOCIAL/ENVIRONMENTAL/BEHAVIORAL CIRCUMSTANCES. PATIENT WITH MILD DEPLETION OF BODY FAT NOTED IN RIBCAGE AND MILD DEPLETION OF MUSCLE MASS NOTED IN CLAVICLE. FOLLOW FOR PO INTAKE AND PROVIDE NUTRITIONAL SUPPLEMENT.
[2024-09-19 09:35] VITALS: BMI 18.3
--- NOTE | 2024-09-19 09:37 | MHC.CLN ---
F/U DIET=REGULAR. ENSURE TID PROVIDES 1050 KCALS, 60 G PROTEIN. PO INTAKE APPEARS GOOD, 50-75%. REPORTS THAT LIKES ENSURE SUPPLEMENT. NUTRITION DX NON SEVERE (MODERATE) MALNUTRITION IN THE CONTEXT OF SOCIAL/BEHAVIORAL/ENVIRONMENTAL CIRCUMSTANCES. FOLLOW FOR PO INTAKE AND CONTINUE SUPPLEMENT.
[2024-09-19 11:42] VITALS: PULSE 73; RESP 16
[2024-09-19 12:00] VITALS: BP 98/59; PULSE 80; RESP 18; TEMP 37; O2SAT 90
--- NOTE | 2024-09-19 14:25 | PM.DS ---
DS: Providers Provider Date of Service: 09/19/24 Date of admission: 09/14/24 06:17 Date of discharge: 09/19/24 Primary care physician: Marge Vela MD Consults: 09/14/24 06:34 Addiction Medicine Routine Consulting Provider: Addiction Covering Reason for consultation: pt on methadone, still using Has provider been notified: No 09/17/24 14:00 Consult to Pulmonology Routine Consulting Provider: [facility] Pulmonology Services Reason for consultation: acute hypoxic resp failure, intersitial fibrosis ? any further recommendati DS: Diagnosis Discharge Diagnosis (1) Lung mass: Status: Acute DS: Summary Hospital Course Hospital Course: Chief Complaint: SOB, cough Patient is a 59-year-old male with a past medical history significant for COPD and substance abuse (IV cocaine and heroin), who presented to the ED due to shortness of breath and cough, found on the street. He describes a productive cough with green sputum with associated fever, chills, nausea and vomiting. He was found to be hypoxic, 87% on room air which improved to 90 with 2 L NC. Patient is a poor historian this having a hard time staying awake for the interview. Pt threated nurse multiple times that he would leave if he does not get his methadone now. He reports last use was yesterday morning. hosptial course: A 59-year-old male with a history of COPD and IV substance abuse (cocaine and heroin) presented to the ED with shortness of breath and cough after being found on the street. He was diagnosed with viral sepsis and acute hypoxia secondary to RSV, leading to a COPD exacerbation. Workup showed normal WBC and negative cultures, but he remained hypoxic and required oxygen. A CT scan on 09/17 revealed pneumonia, mucus plugging, bronchial wall thickening, interstitial fibrosis, and emphysema, with no evidence of PE. He has been receiving supportive care, including oxygen as needed, prednisone, nebulized bronchodilators, and a completed five-day course of Zithro. An oxygen evaluation show that he needs oxygen with activity as he is saturating about 90 to 92 on [place], and PT recommends STR, however he has declined this in favor or going to snf. His history of IV drug use was notable for positive fentanyl, cocaine, and opioids, with no methadone detected; he reported discontinuing methadone months ago. He has since been reintroduced to methadone, with his dose adjusted to 75 mg daily under addiction medicine guidance, with plans for outpatient follow-up. Additionally, he has moderate protein-calorie malnutrition and is encouraged to consume nutrient-dense, high-protein foods. To follow up with our pulmonology clinic for follow up including enlarged lymph nodes deemed to be reactive at this time. He w Time Attestation Discharge Coordination Time (in mins): 45 Quality: Safe Use of Opioids Does Pt have an Active Cancer Diagnosis on the Problem List?: No Quality: Stroke Does the patient have a stroke diagnosis?: No Physical Exam Vital Signs: Vital Signs: Last Vital Signs Temp 98.6 F 09/19/24 12:00 Pulse 80 09/19/24 12:00 Resp 18 09/19/24 12:00 BP 98/59 L 09/19/24 12:00 Pulse Ox 90 L 09/19/24 12:00 O2 Del Method Room Air 09/19/24 12:00 O2 Flow Rate 2 09/18/24 23:01 Oxygen Flow Rate 4 09/14/24 04:12 BMI result Body Mass Index 18.3 Const: Other: General: AO X 3, no acute distress Resp: CTA bilateral CVS: S1,S2,RRR GI: +BS, NT, no distention Skin: No rash Neuro: motor grossly intact Psych: appropriate affect Discharge Plan Discharge Anticipated Discharge Date/Time: 09/19/24 14:30 Patient Disposition: Home, Self-Care Discharge Diagnosis: Acute hypoxic respiratory failure due to RSV, COPD exacerbation, hypoxia, malnutrition Referrals: Marge Vela MD [Primary Care Provider] - 1 Week Daniel Agarwal MD [Physician] - 1 Week Discharge Medications: Continued albuterol sulfate 90 mcg/actuation HFA aerosol inhaler 2 puff PO QID methadone 10 mg/mL Concentrate 48 mg PO DAILY clonidine HCl 0.3 mg tablet 0.3 mg PO TID Trelegy Ellipta 200-62.5-25 mcg blister with device 1 ea INHALATION QAM Discharge Orders: Discharge Order (Routine); Ordered 09/19/24 Ordered By: Daniel Agarwal Diet: Advance to usual diet Activity on Discharge: As tolerated Stand Alone Forms: Patient Portal Discharge page Print Language: Luxembourgish Care Plan Goals: Recovery from acute hat on chronic hypoxic respiratory failure due to RSV causing exacerbation of COPD Health Concerns: Acute and chronic respiratory failure with hypoxia RSV Moderate protein calorie malnutrition COPD exacerbation Enlarged lymph node Plan of Treatment: At this point I have completed treatment with a prednisone and azithromycin. You what to use oxygen as recommended and diet to avoid open flame with this and avoid smoking while using oxygen Follow-up with her primary care doctor within a week, call for appointment and also follow up with the pulmonology Clinic here for follow-up on a finding on the CT scan. Assessment: see above
--- NOTE | 2024-09-19 14:51 | MHC.CM.PN ---
t/w aging spoke with pt about going toa rehab pt aging stses he wants to go home [facility] he says he has been in contact with the [facility] which is located at [address] [place] [address] vishnu/w spoke with respiratory therapist who informed pt to call sebastian when he gets to [facility] and 02 will be delivered ..pt confirned with this worker that that was what he was going to do pt dcd via lyft
== END 2024-09-19 14:50 | disposition home or self-care (01) | DRG 720 ==
LOC: HO.ED 06:13 → HO.EDOVER 06:23 → HO.S3 09-15 15:10
PROVIDERS: Admitting Provider Physician Assistant; Emergency Provider Emergency Medicine; PCP Family Medicine; Visit Provider Internal Medicine
DX: A41.89 Other specified sepsis (principal); J96.21 Acute and chronic respiratory failure with hypoxia; J18.9 Pneumonia, unspecified organism; E44.0 Moderate protein-calorie malnutrition; B97.4 Respiratory syncytial virus as the cause of diseases classified elsewhere; J84.10 Pulmonary fibrosis, unspecified; J43.9 Emphysema, unspecified; F11.20 Opioid dependence, uncomplicated; F17.210 Nicotine dependence, cigarettes, uncomplicated; Z71.6 Tobacco abuse counseling; F14.10 Cocaine abuse, uncomplicated; Z68.1 Body mass index [BMI] 19.9 or less, adult
CPT/HCPCS: 0241U; 36415; 71045; 71275; 80048; 80053; 80307; 81001; 82803; 82947; 83605; 84484; 85025; 87040; 93005; 94640; 97161; 99285; J0456; J0696; J1171; J1650; J2405; J2919; Q9967

== ENCOUNTER → 2024-09-14 04:58 | Outpatient (BNV) | payer MEDICAID, SELFPAY | PROVIDERS: Emergency Provider Emergency Medicine; Visit Provider Radiology Vascular & Interventional Radiology | DX: J98.4 Other disorders of lung (principal) | CPT/HCPCS: 71045 ==

== ENCOUNTER → 2024-09-14 04:59 | Outpatient (BNV) | payer MEDICAID, SELFPAY | PROVIDERS: Admitting Provider Physician Assistant; Emergency Provider Emergency Medicine; PCP Family Medicine; Visit Provider Internal Medicine Cardiovascular Disease | DX: I49.1 Atrial premature depolarization (principal); J98.4 Other disorders of lung | CPT/HCPCS: 93010 ==

== ENCOUNTER 2024-09-14 06:17 | Outpatient (BNV) | payer MEDICAID, SELFPAY | END 2024-09-17 11:08 | PROVIDERS: Admitting Provider Physician Assistant; Emergency Provider Emergency Medicine; PCP Family Medicine; Visit Provider Radiology Diagnostic Radiology | DX: J43.9 Emphysema, unspecified (principal); J84.170 Interstitial lung disease with progressive fibrotic phenotype in diseases classified elsewhere; R91.8 Other nonspecific abnormal finding of lung field | CPT/HCPCS: 71275 ==

== ENCOUNTER → 2024-09-14 06:17 | Outpatient (BNV) | payer MEDICAID, SELFPAY | PROVIDERS: Admitting Provider Physician Assistant; Emergency Provider Emergency Medicine; PCP Family Medicine; Visit Provider Internal Medicine | DX: R91.8 Other nonspecific abnormal finding of lung field (principal) | CPT/HCPCS: 99232; 99233; 99499 ==

== ENCOUNTER → 2024-09-14 06:17 | Outpatient (BNV) | payer MEDICAID, SELFPAY | PROVIDERS: Admitting Provider Physician Assistant; Emergency Provider Emergency Medicine; PCP Family Medicine; Visit Provider Internal Medicine Pulmonary Disease | DX: J96.01 Acute respiratory failure with hypoxia (principal); J44.1 Chronic obstructive pulmonary disease with (acute) exacerbation; J20.5 Acute bronchitis due to respiratory syncytial virus | CPT/HCPCS: 99222 ==

== ENCOUNTER → 2024-09-14 06:17 | Outpatient (BNV) | payer MEDICAID, SELFPAY | PROVIDERS: Admitting Provider Physician Assistant; Emergency Provider Emergency Medicine; PCP Family Medicine; Visit Provider Nurse Practitioner Psychiatric/Mental Health | DX: F11.90 Opioid use, unspecified, uncomplicated (principal) | CPT/HCPCS: 99222 ==